=== PATIENT | female | born 1985 | race Caucasian/White ===

== ENCOUNTER 2016-11-18 03:07 | Emergency (ER) | payer SELFPAY | END 2016-11-18 03:47 | disposition left against medical advice (07) | LOC: ED 03:07 | DX: Z02.89 Encounter for other administrative examinations (principal); M79.605 Pain in left leg ==

== ENCOUNTER 2017-07-29 18:14 | Emergency (ER) | payer MEDICAID ==
[2017-07-29 18:37] VITALS: BMI 23.6
[2017-07-29 18:41] VITALS: TEMP 98.8; O2SAT 100
--- NOTE | 2017-07-29 18:47 | ED PDOC ---
Arrival/HPI - General Chief Complaint: Headache Time Seen by Provider: 07/29/17 18:20 Historian: Patient - History of Present Illness Time/Duration: Other (5 days) Symptom Course: Unchanged Quality: Aching Severity Level: Moderate Activities at Onset: Rest Associated Symptoms (Text): 07/29/17 18:45 Patient complains of a five-day history of a bilateral frontal headache. The headache gets better with Aleve, but then returns. There's been some nausea and vomiting. No head trauma. No dizziness or lightheadedness. No numbness tingling or paresthesias. No weakness. No difficulty with ambulation. No difficulty with speech. No neck pain. No fever or chills. No URI symptoms. No dental pain. No cough congestion. No abdominal pain. No headache history. She does not appear uncomfortable or in any distress. Past Medical History - Infectious Disease Hx of Infectious Diseases: None - Reproductive Menopause: No - Psychiatric Hx Substance Use: No - Surgical History Hx Section: Yes (2006) - Anesthesia Hx Anesthesia: Yes Hx Anesthesia Reactions: No Hx Malignant Hyperthermia: No - Suicidal Assessment Feels Threatened In Home Enviroment: No Family/Social History - Physician Review Nursing Documentation Reviewed: Yes Family/Social History: Unknown Family HX Smoking Status: Light Smoker < 10 Cigarettes Daily Hx Alcohol Use: Yes Frequency of alcohol use: Socially Hx Substance Use: No Allergies/Home Meds Allergies/Adverse Reactions: Allergies No Known Allergies Allergy (Verified 12/01/14 20:56) Review of Systems - Physician Review All systems were reviewed & negative as marked: Yes - Review of Systems Constitutional: absent: Fatigue, Fevers Eyes: absent: Vision Changes, Photophobia, Eye Pain ENT: absent: Hearing Changes, Rhinorrhea Respiratory: Normal Cardiovascular: Normal Gastrointestinal: Nausea, Vomiting. absent: Abdominal Pain, Constipation, Diarrhea, Anorexia Genitourinary Female: absent: Dysuria, Frequency, Hematuria Neurological: Headache. absent: Dizziness, Focal Weakness, Gait Changes, Speech Changes, Facial Droop, Disequilibrium, Seizure Physical Exam Vital Signs Temp Pulse Resp BP Pulse Ox 07/29/17 18:37 98.8 F 94 H 18 136/79 100 Temperature: Afebrile Blood Pressure: Normal Pulse: Regular Respiratory Rate: Normal Appearance: Positive for: Well-Appearing, Non-Toxic, Comfortable Pain Distress: None Mental Status: Positive for: Alert and Oriented X 3 - Systems Exam Head: Present: Atraumatic, Normocephalic Pupils: Present: PERRL Extroacular Muscles: Present: EOMI Conjunctiva: Present: Normal Ears: Present: NORMAL TM, Normal Canal. No: Erythema Mouth: Present: Moist Mucous Membranes Pharnyx: No: ERYTHEMA, EXUDATE, TONSILS ENLARGED Neck: Present: Normal Range of Motion. No: Meningeal Signs Respiratory/Chest: Present: Clear to Auscultation, Good Air Exchange. No: Respiratory Distress, Accessory Muscle Use Cardiovascular: Present: Regular Rate and Rhythm, Normal S1, S2. No: Murmurs Abdomen: Present: Normal Bowel Sounds. No: Tenderness, Distention, Peritoneal Signs, Rebound, Guarding Upper Extremity: Present: Normal Inspection. No: Cyanosis, Edema Lower Extremity: Present: Normal Inspection. No: Edema Neurological: Present: GCS=15, CN II-XII Intact, Speech Normal, Motor Func Grossly Intact, Normal Cerebellar Funct, Gait Normal Skin: Present: Warm, Dry, Normal Color. No: Rashes Psychiatric: Present: Alert, Oriented x 3, Normal Insight, Normal Concentration Medical Decision Making ED Course and Treatment: 07/29/17 20:36 Headache and nausea have resolved post Toradol and Zofran. Waiting for CT report - RAD Interpretation Radiology Orders: 07/29/17 18:55 HEAD W/O CONTRAST [CT] Stat CT scan of the head as read by the radiologist shows no acute findings Parimutuel Ticket Checker: Radiologist - Medication Orders Current Medication Orders: Discontinued Medications Ketorolac Tromethamine (Toradol) 30 mg IM ONCE ONE Stop: 07/29/17 18:56 Last Admin: 07/29/17 19:07 Dose: 30 mg MAR Pain Assessment Document 07/29/17 19:07 RD (Rec: 07/29/17 19:07 RD [id number] Pain Reassessment Is this a pain reassessment? No Sleep Is patient sleeping during reassessment? No Presence of Pain Presence of Pain Yes Location Pain Location Body Structures Mechanic IM Administration Charges Document 07/29/17 19:07 RD (Rec: 07/29/17 19:07 RD [id number]) Injection Site MAR Injection Site Left Deltoid Charges for Administration # of IM Administrations 1 Ondansetron HCl (Zofran Odt) 4 mg PO STAT STA Stop: 07/29/17 18:57 Last Admin: 07/29/17 19:07 Dose: 4 mg Disposition/Present on Arrival - Present on Arrival Any Indicators Present on Arrival: No History of DVT/PE: No History of Uncontrolled Diabetes: No Urinary Catheter: No History of Decub. Ulcer: No History Surgical Site Infection Following: None - Disposition Have Diagnosis and Disposition been Completed?: Yes Diagnosis: Headache Disposition: HOME/ ROUTINE Disposition Time: 20:56 Condition: IMPROVED Discharge Instructions (ExitCare): Acute Headache (ED) Prescriptions: Naproxen [Naprosyn] 500 mg PO BID #14 tab Ondansetron [Zofran Odt] 4 mg SL Q6 #20 odt Forms: [facility] (Estonian), WORK NOTE
--- NOTE | 2017-07-29 20:52 | CT ---
EXAM: CT Head Without Intravenous Contrast CLINICAL HISTORY: 32 years old, female; Pain; Headache; Headache not specified; Additional info: [facility] TECHNIQUE: Axial computed tomography images of the head/brain without intravenous contrast. All CT scans at this facility use one or more dose reduction techniques, viz.: automated exposure control; ma/kV adjustment per patient size (including targeted exams where dose is matched to indication; i.e. head); or iterative reconstruction technique. COMPARISON: No relevant prior studies available. FINDINGS: Brain: No hemorrhage. No significant white matter disease. No edema. Ventricles: No hydrocephalus. Bones: Skull is intact. Sinuses: No acute sinusitis. Mastoid air cells: No mastoid effusion. IMPRESSION: No CT evidence of acute intracranial abnormality.
[2017-07-29 21:00] VITALS: BP 108/62; PULSE 75; RESP 16
== END 2017-07-29 21:03 | disposition home or self-care (01) ==
LOC: ED 18:14
DX: R51 Headache (principal)
CPT/HCPCS: 70450; 96372; 99285; J1885

== ENCOUNTER 2017-08-15 22:18 | Emergency (ER) | payer MEDICAID ==
[2017-08-15 22:58] VITALS: BMI 23.0
[2017-08-15 23:01] VITALS: RESP 18
[2017-08-16] MEDS: Sodium Chloride 0.9% 1,000 ML IV STA ×2 (00:02→01:15)
[2017-08-16 00:13] LABS: EOS # 0.2 (0.0-0.7); GRAN # 1.67 (1.4-6.5); GRAN % 43.8 % (50.0-68.0); HEMOGLOBIN 10.7 g/dL (12.0-16.0); LYMPH # 1.4 (1.2-3.4); LYMPH % 37.8 % (22.0-35.0); MEAN CORPUSCULAR HEMOGLOBIN 28.5 pg (25.0-35.0); MEAN CORPUSCULAR HGB CONC 32.7 g/dl (31.0-37.0); MEAN PLATELET VOLUME 10.9 fl (7.0-11.0); MONO # 0.5 (0.1-0.6); MONO % 13.4 % (1.0-6.0); PH,URINE 5.5 (4.7-8.0); RBC 3.76 10^6/uL (3.5-6.1); RED CELL DISTRIBUTION WIDTH 12.5 % (11.5-14.5); URINE BILIRUBIN NEGATIVE (NEGATIVE); URINE BLOOD NEGATIVE (NEGATIVE); URINE GLUCOSE (UA) NEGATIVE (NEGATIVE); URINE LEUKOCYTE ESTERASE NEGATIVE Leu/uL (NEGATIVE); URINE NITRATE NEGATIVE (NEGATIVE); URINE PROTEIN NEGATIVE mg/dL (<30 mg/dL); URINE UROBILINOGEN 0.2 E.U./dL (<1 E.U./dL); WHITE BLOOD COUNT 3.8 10^3/ul (4.5-11.0)
[2017-08-16 00:14] LABS: URINE APPEARANCE CLEAR (CLEAR); URINE COLOR YELLOW (YELLOW)
[2017-08-16 00:18] LABS: ALB/GLOB RATIO 1.5 (1.1-1.8); ALBUMIN 3.6 g/dL (3.0-4.8); ALT/SGPT 34 U/L (7-56); AMYLASE 36 U/L (35-125); AST/SGOT 15 U/L (14-36); BLOOD UREA NITROGEN 13 mg/dL (7-21); CALCIUM 9.7 mg/dL (8.4-10.5); GFR AFRICAN-AMERICAN > 60; GFR NON-AFRICAN AMERICAN > 60; LIPASE 48 U/L (23-300)
[2017-08-16 01:30] VITALS: BP 113/57; PULSE 94; TEMP 98.5; O2SAT 99
--- NOTE | 2017-08-16 02:12 | ED PDOC ---
Arrival/HPI - General Chief Complaint: Fever Time Seen by Provider: 08/15/17 23:20 Historian: Patient - History of Present Illness Narrative History of Present Illness (Text): 08/16/17 02:09 32yr old female presents today with cough, nasal congestion, sore throat, and vomiting. pt states today she started coughing and has been vomiting during the day. pt denies abdominal pain. states she had fevers of 100.4 at home. pt states she took motrin for fever. denies dizziness or weakness. pt states she took zofran for nausea at home. denies nausea at present time. pt denies sick contacts at home. states she hasnt been able to eat much today. pt states she just has been taking sips of drink/soup. no other complaints. Time/Duration: Other (today) Symptom Onset: Sudden Symptom Course: Worsening Quality: Aching, Burning Severity Level: 4 Past Medical History - Provider Review Nursing Documentation Reviewed: Yes - Travel History Have you recently traveled outside [place] w/in the past 3 mons?: No - Infectious Disease Hx of Infectious Diseases: None - Psychiatric Hx Substance Use: No - Surgical History Hx Section: Yes (2006) - Anesthesia Hx Anesthesia: Yes Hx Anesthesia Reactions: No Hx Malignant Hyperthermia: No - Suicidal Assessment Feels Threatened In Home Enviroment: No Family/Social History - Physician Review Nursing Documentation Reviewed: Yes Family/Social History: Unknown Family HX Smoking Status: Light Smoker < 10 Cigarettes Daily Hx Alcohol Use: Yes Frequency of alcohol use: Socially Hx Substance Use: No Allergies/Home Meds Allergies/Adverse Reactions: Allergies No Known Allergies Allergy (Verified 12/01/14 20:56) Review of Systems - Review of Systems Constitutional: Fevers. absent: Fatigue ENT: Sore Throat, Sinus Congestion Respiratory: Cough Cardiovascular: absent: Chest Pain Gastrointestinal: Nausea, Vomiting. absent: Abdominal Pain, Constipation, Diarrhea Genitourinary Female: absent: Dysuria, Frequency, Hematuria Musculoskeletal: absent: Arthralgias Skin: absent: Rash, Pruritis Neurological: absent: Dizziness, Disequilibrium Psychiatric: absent: Anxiety, Depression Physical Exam Vital Signs Reviewed: Yes Vital Signs Temp Pulse Resp BP Pulse Ox 08/16/17 01:27 98.5 F 94 H 18 113/57 L 99 08/15/17 23:01 98.3 F 104 H 18 118/45 L 100 Temperature: Afebrile Blood Pressure: Normal Pulse: Tachycardic Respiratory Rate: Normal Appearance: Positive for: Well-Appearing, Non-Toxic, Comfortable Pain Distress: None Mental Status: Positive for: Alert and Oriented X 3 - Systems Exam Head: Present: Atraumatic Conjunctiva: Present: Normal Ears: Present: Normal, NORMAL TM Mouth: Present: Moist Mucous Membranes Pharnyx: Present: ERYTHEMA, Other (+ post nasal drip). No: EXUDATE, TONSILS ENLARGED, Peritonsilar Swelling, Uvular Deviation, Muffled/Hoarse Voice Nose (External): Present: Atraumatic Nose (Internal): Present: Normal Inspection Neck: Present: Normal Range of Motion, Trachea Midline. No: Meningeal Signs, Lymphadenopathy Respiratory/Chest: Present: Clear to Auscultation, Good Air Exchange. No: Respiratory Distress, Accessory Muscle Use, Wheezes, Retracting, Rhonchi, Tachypneic, Tender to Palpation Cardiovascular: Present: Regular Rate and Rhythm Abdomen: Present: Normal Bowel Sounds. No: Tenderness, Distention, Rebound, Guarding Back: Present: Normal Inspection. No: CVA Tenderness, Midline Tenderness, Paraspinal Tenderness, Pain with Leg Raise Upper Extremity: Present: Normal Inspection Neurological: Present: GCS=15, Speech Normal Skin: Present: Warm, Dry, Normal Color. No: Rashes Psychiatric: Present: Alert, Oriented x 3 Medical Decision Making ED Course and Treatment: 08/16/17 02:12 32yr old female with n/v, cough, sore throat and fevers since this morning. abdomen is soft non tender, non distress. cbc; hgb; 10.7 cmp; wnl rapid flu: negative rapid strep; negative cxr; no infiltrate or effusion UA; wnl. pt reassessment; pt feeling better after pepcid and fluids. abdominal remains non tender. pt c/o only of sore throat. will place patient on zithromax for pharyngitis and cough. advised f/u with PMD tomorrow. advised immediate return if symptoms worsen, persist or if new symptoms develop. Patient verbalizes understanding of discharge instructions and need for immediate followup. all aspects of this case were discussed the attending of record. impression; pharyngitis, vomiting, cough motrin every 6 hours as needed for fever reduction zithromax; daily x 4 days increase fluids follow up with the primary care physician tomorrow. return immediately if symptoms worsen,persist or if new symptoms develop. - Lab Interpretations Lab Results: 08/15/17 23:50 08/15/17 23:50 Lab Results 08/15/17 23:55: Grp A Beta Strep Ag Negative 08/15/17 23:55: Influenza Typ A,B (EIA) Negative for flu a/b 08/15/17 23:50: Urine Color Yellow, Urine Appearance Clear, Urine pH 5.5, Ur Specific Truman >= 1.030, Urine Protein Negative, Urine Glucose (UA) Negative, Urine Ketones Negative, Urine Blood Negative, Urine Nitrate Negative, Urine Bilirubin Negative, Urine Urobilinogen 0.2, Ur Leukocyte Esterase Negative 08/15/17 23:50: WBC 3.8 L D, RBC 3.76, Hgb 10.7 L, Hct 32.7 L, MCV 87.0, MCH 28.5, MCHC 32.7, RDW 12.5, Plt Count 171, MPV 10.9, Gran % 43.8 L, Lymph % (Auto ) 37.8 H, Harlan % (Auto) 13.4 H, Eos % (Auto) 5.0, Baso % (Auto) 0.0, Gran # 1.67 , Lymph # 1.4, Harlan # 0.5, Eos # 0.2, Baso # 0.00 08/15/17 23:50: Sodium 138, Potassium 4.2, Chloride 101, Carbon Dioxide 26, Anion Gap 15, BUN 13, Creatinine 0.5 L, Est GFR ( Amer) > 60, Est GFR ( Non-Af Amer) > 60, Random Glucose 89, Calcium 9.7, Total Bilirubin 0.3, AST 15, ALT 34, Alkaline Phosphatase 35 L, Total Protein 6.1, Albumin 3.6, Globulin 2.4 , Albumin/Globulin Ratio 1.5, Amylase 36, Lipase 48 - RAD Interpretation Radiology Orders: 08/15/17 23:37 CHEST TWO VIEWS (PA/LAT) [RAD] Stat - Medication Orders Current Medication Orders: Amoxicillin (Amoxil 500 Mg Cap) 500 mg PO STAT STA PRN Reason: Protocol Stop: 08/16/17 02:09 Discontinued Medications Famotidine (Pepcid) 20 mg IVP STAT STA Stop: 08/15/17 23:38 Last Admin: 08/16/17 00:02 Dose: 20 mg IVP Administration Document 08/16/17 00:02 MAXIMO (Rec: 08/16/17 00:02 MAXIMO [id number]) Charges for Administration # of IVP Administrations 1 Sodium Chloride (Sodium Chloride 0.9%) 1,000 mls @ 999 mls/hr IV .Q1H1M STA Stop: 08/16/17 00:37 Last Admin: 08/16/17 01:15 Dose: 999 mls/hr eMAR Start Stop Document 08/16/17 01:15 MAXIMO (Rec: 08/16/17 01:15 MAXIMO [facility] [id number]) Intravenous Solution Start Date 08/16/17 Start Time 00:05 End Date 08/16/17 End time 01:15 Total Infusion Time 70 Disposition/Present on Arrival - Present on Arrival Any Indicators Present on Arrival: No History of DVT/PE: No History of Uncontrolled Diabetes: No Urinary Catheter: No History of Decub. Ulcer: No History Surgical Site Infection Following: None - Disposition Have Diagnosis and Disposition been Completed?: Yes Diagnosis: Cough, Pharyngitis, Vomiting Disposition: HOME/ ROUTINE Disposition Time: :18 Patient Plan: Discharge Condition: GOOD Discharge Instructions (ExitCare): Acute Cough (ED), Fever in Adults (ED), Acute Nausea and Vomiting (ED) Additional Instructions: motrin every 6 hours as needed for fever reduction zithromax; daily x 4 days increase fluids follow up with the primary care physician tomorrow. return immediately if symptoms worsen,persist or if new symptoms develop. Prescriptions: Azithromycin [Zithromax] 250 mg PO DAILY #4 tab Ibuprofen [Motrin] 600 mg PO Q6H PRN #20 tab PRN Reason: pain/fever reduction Referrals: Theodore Walker DO [Staff Provider] - Follow up with primary Louis James DO [Staff Provider] - Follow up with primary Saurabh Willard MD [Staff Provider] - Follow up with primary
--- NOTE | 2017-08-16 08:08 | RAD ---
HISTORY: cough/fever COMPARISON: No prior. TECHNIQUE: Chest PA and lateral FINDINGS: LUNGS: No active pulmonary disease. PLEURA: No significant pleural effusion identified. No pneumothorax apparent. CARDIOVASCULAR: Normal. OSSEOUS STRUCTURES: No significant abnormalities. VISUALIZED UPPER ABDOMEN: Normal. OTHER FINDINGS: None. IMPRESSION: No acute cardiopulmonary disease appreciated.
== END 2017-08-16 02:25 | disposition home or self-care (01) ==
LOC: ED 22:18
DX: J02.9 Acute pharyngitis, unspecified (principal); R05 Cough; R11.10 Vomiting, unspecified; F17.210 Nicotine dependence, cigarettes, uncomplicated
CPT/HCPCS: 71046; 80053; 81003; 82150; 83690; 85025; 87070; 87430; 87804; 96361; 96374; 99285; J7040

== ENCOUNTER 2017-10-23 10:45 | Emergency (ER) | payer MEDICAID ==
[2017-10-23 11:12] VITALS: TEMP 99.1; O2SAT 98; BMI 19.5
--- NOTE | 2017-10-23 11:28 | ED PDOC ---
Arrival/HPI - General Chief Complaint: Upper Extremity Problem/Injury Time Seen by Provider: 10/23/17 11:15 Historian: Patient - History of Present Illness Narrative History of Present Illness (Text): 10/23/17 11:25 32yo female with PMhx of Grave's disease who present with complaint of left upper arm pain x 2days. Reports hitting the area on a counter top Sunday. states she felt pain immediately, but was busy and ignored it. she started having "pinching" pain to the area yesterday and it became worse today. State she took Tylenol this morning without relieve. Pain is worse with movement of the arm. denies chest pain, SOB, diaphoresis, nausea,vomiting, focal weakness, paresthesia, any other complaint. Past Medical History - Provider Review Nursing Documentation Reviewed: Yes - Infectious Disease Hx of Infectious Diseases: None - Cardiac Hx Cardiac Disorders: No - Pulmonary Hx Respiratory Disorders: No - Neurological Hx Neurological Disorder: No - HEENT Hx HEENT Disorder: No - Renal Hx Renal Disorder: No - Endocrine/Metabolic Hx Endocrine Disorders: Yes - Psychiatric Hx Substance Use: No - Surgical History Hx Section: Yes (2006) - Anesthesia Hx Anesthesia: Yes Hx Anesthesia Reactions: No Hx Malignant Hyperthermia: No - Suicidal Assessment Feels Threatened In Home Enviroment: No Family/Social History - Physician Review Nursing Documentation Reviewed: Yes Family/Social History: Unknown Family HX Smoking Status: Light Smoker < 10 Cigarettes Daily Hx Alcohol Use: Yes Hx Substance Use: No Allergies/Home Meds Allergies/Adverse Reactions: Allergies No Known Allergies Allergy (Verified 10/23/17 11:12) Home Medications: Home Meds Medication Instructions Recorded Confirmed Metoprolol Tartrate [Lopressor] 50 mg PO HS 10/23/17 10/23/17 methIMAzole [Tapazole] 30 mg PO DAILY 10/23/17 10/23/17 Review of Systems - Physician Review All systems were reviewed & negative as marked: Yes - Review of Systems Constitutional: Normal Eyes: Normal ENT: Normal Respiratory: Normal Cardiovascular: Normal Gastrointestinal: Normal Genitourinary Female: Normal Musculoskeletal: Arthralgias (Left arm pain) Skin: Normal Neurological: Normal Endocrine: Normal Hemo/Lymphatic: Normal Psychiatric: Normal Physical Exam Vital Signs Reviewed: Yes Vital Signs Temp Pulse Resp BP Pulse Ox 10/23/17 12:27 96 H 18 117/71 98 10/23/17 11:06 99.1 F 114 H 20 119/78 98 Temperature: Afebrile Blood Pressure: Normal Pulse: Tachycardic Respiratory Rate: Normal Appearance: Positive for: Well-Appearing, Non-Toxic, Comfortable Pain Distress: None Mental Status: Positive for: Alert and Oriented X 3 - Systems Exam Head: Present: Atraumatic, Normocephalic Pupils: Present: PERRL Extroacular Muscles: Present: EOMI Conjunctiva: Present: Normal Mouth: Present: Moist Mucous Membranes Neck: Present: Normal Range of Motion Respiratory/Chest: Present: Clear to Auscultation, Good Air Exchange. No: Respiratory Distress, Accessory Muscle Use Cardiovascular: Present: Regular Rate and Rhythm, Normal S1, S2. No: Murmurs Abdomen: Present: Normal Bowel Sounds. No: Tenderness, Distention, Peritoneal Signs Back: Present: Normal Inspection Upper Extremity: Present: NORMAL PULSES, Tenderness (Left upper arm), Swelling ( Mild swelling of left upper arm noted), Neurovascularly Intact, Other (strenght 5/5). No: Cyanosis, Edema, Normal ROM (Limited on all planes secondary to pain) Lower Extremity: Present: Normal Inspection. No: Edema Neurological: Present: GCS=15, CN II-XII Intact, Speech Normal Skin: Present: Warm, Dry, Normal Color. No: Rashes Psychiatric: Present: Alert, Oriented x 3, Normal Insight, Normal Concentration Medical Decision Making ED Course and Treatment: 10/23/17 18:15 Pt in ED for stated history. She denied chest pain in ED. She was NVI. Strength 5/5. Left humerus xray - Negative EKG NSR 89bpm Pt's pain was controlled in ED with medication. Result was DW the pt. She was DC home with Naprosyn and referred to her PMD. - RAD Interpretation Radiology Orders: 10/23/17 11:22 HUMERUS LEFT [RAD] Stat - Medication Orders Current Medication Orders: Discontinued Medications Ketorolac Tromethamine (Toradol) 60 mg IM STAT STA Stop: 10/23/17 11:23 Last Admin: 10/23/17 11:37 Dose: 60 mg JULIANNA Pain Assessment Document 10/23/17 11:37 HI (Rec: 10/23/17 11:38 HI [id number]) Pain Reassessment Is this a pain reassessment? No Sleep Is patient sleeping during reassessment? No Presence of Pain Presence of Pain Yes Location Left, Right or Bilateral Left Pain Location Body Site Arm Description Description Constant Intensity of Pain at present 8 Acceptable Level of Pain 2 IM Administration Charges Document 10/23/17 11:37 HI (Rec: 10/23/17 11:38 HI [id number]) Injection Site MAR Injection Site Right Gluteus Freddie Charges for Administration # of IM Administrations 1 Disposition/Present on Arrival - Present on Arrival Any Indicators Present on Arrival: No History of DVT/PE: No History of Uncontrolled Diabetes: No Urinary Catheter: No History of Decub. Ulcer: No History Surgical Site Infection Following: None - Disposition Have Diagnosis and Disposition been Completed?: Yes Diagnosis: Arm pain Disposition: HOME/ ROUTINE Disposition Time: 12:45 Patient Plan: Discharge Condition: STABLE Discharge Instructions (ExitCare): Muscle and Bone Pain (DC) Additional Instructions: Apply ice compress to area and take medication for pain Follow up with your doctor Return to ED for any new symptoms Prescriptions: Naproxen [Naprosyn] 500 mg PO BID #20 tablet Referrals: Cristiano Burkett MANAGER [employer] [Advanced Practice Nurse] - Follow up with primary Forms: [employer] (Algerian)
--- NOTE | 2017-10-23 12:24 | RAD ---
PROCEDURE: Radiographs of the left humerus. HISTORY: arm pain s/p trauma COMPARISON: None. FINDINGS: BONES: Normal. No fracture or focal lesion. SOFT TISSUES: Normal. OTHER FINDINGS: None. IMPRESSION: Normal radiographs of left humerus.
[2017-10-23 12:28] VITALS: BP 117/71; PULSE 96; RESP 18
--- NOTE | 2017-10-24 07:17 | CARD ---
APPROVED REPORT EKG Measurement Heart [id number] <Conclusion> Normal sinus rhythm Normal ECG
== END 2017-10-23 13:19 | disposition home or self-care (01) ==
LOC: ED 10:45
DX: M79.602 Pain in left arm (principal)
CPT/HCPCS: 73060; 93005; 96372; 99284; J1885

== ENCOUNTER 2017-10-30 17:42 | Inpatient (IN) | payer MEDICAID ==
[2017-10-30 17:47] VITALS: BMI 19.9
[2017-10-30] MEDS ORDERED: Sodium Chloride 0.9% 1,000 ML IV STA ×2 (17:52→18:05)
[2017-10-30] MEDS ORDERED: cefTRIAXone 1 gm 1 GM/100 ML BAG IVPB STA (18:06)
[2017-10-30 18:24] LABS: VENOUS BLOOD GAS BASE EXCESS 1.2 mmol/L (0.0-2.0); VENOUS BLOOD GAS PO2 46 mm/Hg (30-55); VENOUS BLOOD PH 7.39 (7.32-7.43)
[2017-10-30 18:29] LABS: GRAN # 0.01 (1.4-6.5); GRAN % 2.8 % (50.0-68.0); HEMOGLOBIN 11.5 g/dL (12.0-16.0); LYMPH # 0.3 (1.2-3.4); LYMPH % 88.9 % (22.0-35.0); MEAN CORPUSCULAR HEMOGLOBIN 26.3 pg (25.0-35.0); MEAN CORPUSCULAR HGB CONC 33.7 g/dl (31.0-37.0); MEAN PLATELET VOLUME 10.1 fl (7.0-11.0); MONO % 8.3 % (1.0-6.0); PLATELET COUNT 201 10^3/uL (120.0-450.0); RBC 4.37 10^6/uL (3.5-6.1); RED CELL DISTRIBUTION WIDTH 13.6 % (11.5-14.5)
[2017-10-30 18:40] LABS: ALB/GLOB RATIO 1.2 (1.1-1.8); ALT/SGPT 34 U/L (7-56); AST/SGOT 20 U/L (14-36); BLOOD UREA NITROGEN 17 mg/dL (7-21); CALCIUM 10.2 mg/dL (8.4-10.5); GFR AFRICAN-AMERICAN > 60; GFR NON-AFRICAN AMERICAN > 60
--- NOTE | 2017-10-30 18:43 | ED PDOC ---
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 Patient was seen at an urgent care and had a negative flu and strep. Patient evaluated by PMD who instructed her to come in for further evaluation. Patient denies any nausea, vomiting, diarrhea, abdominal pain, chest pain, shortness of breath, cough or any other complaints. 10/30/17 19:22 Time/Duration: Other (2 days) Symptom Course: Unchanged Quality: Other Context: Home Past Medical History - Provider Review Nursing Documentation Reviewed: Yes - Infectious Disease Hx of Infectious Diseases: None - Cardiac Hx Cardiac Disorders: No - Pulmonary Hx Respiratory Disorders: No - Neurological Hx Neurological Disorder: No - HEENT Hx HEENT Disorder: No - Renal Hx Renal Disorder: No - Endocrine/Metabolic Hx Endocrine Disorders: Yes - Musculoskeletal/Rheumatological Other/Comment: graves disease - Psychiatric Hx Substance Use: No - Surgical History Hx Section: Yes (2006) - Anesthesia Hx Anesthesia: Yes Hx Anesthesia Reactions: No Hx Malignant Hyperthermia: No - Suicidal Assessment Feels Threatened In Home Enviroment: No Family/Social History - Physician Review Nursing Documentation Reviewed: Yes Family/Social History: No Known Family HX Smoking Status: Former Smoker Hx Alcohol Use: No Hx Substance Use: No Allergies/Home Meds Allergies/Adverse Reactions: Allergies No Known Allergies Allergy (Verified 10/23/17 11:12) Home Medications: Home Meds Medication Instructions Recorded Confirmed Metoprolol Tartrate [Lopressor] 50 mg PO HS 10/23/17 10/23/17 methIMAzole [Tapazole] 30 mg PO DAILY 10/23/17 10/23/17 Review of Systems - Physician Review All systems were reviewed & negative as marked: Yes - Review of Systems Constitutional: Fevers ENT: Sore Throat Respiratory: absent: SOB, Cough Cardiovascular: absent: Chest Pain Gastrointestinal: absent: Abdominal Pain, Diarrhea, Nausea, Vomiting Physical Exam Vital Signs Reviewed: Yes Vital Signs Temp Pulse Resp BP Pulse Ox 10/30/17 21:30 95 H 20 110/57 L 100 10/30/17 19:40 109 H 18 130/76 97 10/30/17 18:11 104.0 F H 10/30/17 17:43 103 F H 145 H 20 134/81 97 Temperature: Febrile Blood Pressure: Normal Pulse: Tachycardic Respiratory Rate: Normal Appearance: Positive for: Well-Appearing, Non-Toxic, Comfortable Pain Distress: None Mental Status: Positive for: Alert and Oriented X 3 - Systems Exam Head: Present: Atraumatic, Normocephalic Pupils: Present: PERRL Extroacular Muscles: Present: EOMI Conjunctiva: Present: Normal Mouth: Present: Moist Mucous Membranes Pharnyx: Present: ERYTHEMA. No: EXUDATE, TONSILS ENLARGED Neck: Present: Normal Range of Motion, Lymphadenopathy (Tender cervical lymphadenopathy). No: Other (thyromegaly) Respiratory/Chest: Present: Clear to Auscultation, Good Air Exchange. No: Respiratory Distress, Accessory Muscle Use Cardiovascular: Present: Regular Rate and Rhythm, Normal S1, S2. No: Murmurs Abdomen: Present: Normal Bowel Sounds. No: Tenderness, Distention, Peritoneal Signs Upper Extremity: Present: Normal Inspection. No: Cyanosis, Edema Lower Extremity: Present: Normal Inspection. No: Edema Neurological: Present: GCS=15, CN II-XII Intact, Speech Normal Skin: Present: Warm, Dry, Normal Color. No: Rashes Psychiatric: Present: Alert, Oriented x 3, Normal Insight, Normal Concentration Medical Decision Making ED Course and Treatment: 10/30/17 18:36 Impression: A 32 year old female with fever and sore throat Plan: -- Neck CT -- Chest xray -- EKG -- Labs -- Throat, Blood and Urine cultures, mono-spot -- Urinalysis -- Rapid flu, rapid hiv -- Tylenol, Lactated ringer, Rocephin, and IV fluids -- Reassess and disposition Progress Notes: Code sepsis activated. Antibiotics and additional fluids to meet 30cc/kg/hr LR ordered. Blood and urine culture already ordered. 10/30/17 19:20 Neutropenic cautions started. Tamiflu also added. Additional antibiotics ordered due to neutropenia. TSH low, but free t4 only mildly elevated. Spoke to [place] MANAGER CARGO who is requesting admission under Dr. Hernandez 10/30/17 19:[address] Hernandez. She is requesting flu serology which was ordered. Monospot also added. HR improving to 104 after IVF. Agrees with current mgmt including CT. Will take patient on her service 10/30/17 20:51 10/30/17 21:33 CT soft tissue show 1. There is swelling of the adenoids within the posterior nasopharynx. Mucosal enhancement is visualized, which may be inflammatory. 2. There is heterogeneous enhancement of the bilateral palatine tonsils and lingual tonsils. This is likely infectious or inflammatory. There is asymmetric hypertrophy of the right lingual tonsil with effacement of the right vallecula. Clinical correlation is recommended. 3. There is diffuse enlargement of the thyroid, consistent with goiter. 4. There is swelling surrounding the right submandibular gland, suggestive of sialoadenitis. 5. Cervical lymphadenopathy is identified, nonspecific as to etiology. 6. Within the soft tissues lateral to the left parotid gland, there is a 1.5 x 0.9 x 1.9 cm lipomatous lesion/lipoma. 7. Within the soft tissues of the neck midline, there is an isodense nodule measuring 0.8 x 0.5 x 1.9 cm. This is suggestive of ectopic thyroid tissue. 8. A follow-up CT is suggested. Cxray concerning for additional LAD but need to follow-up official read in am. 10/30/17 21:34 - Lab Interpretations Lab Results: 10/30/17 18:11 10/30/17 18:17 Lab Results 10/30/17 18:32: Influenza Typ A,B (EIA) Negative for flu a/b 10/30/17 18:17: Free T4 2.61 H, TSH 3rd Generation < 0.02 L 10/30/17 18:17: Grp A Beta Strep Ag Negative 10/30/17 18:17: Sodium 132, Chloride 95 L, Potassium 3.8, Carbon Dioxide 23, Anion Gap 17, BUN 17, Creatinine 0.6 L, Est GFR ( Amer) > 60, Est GFR ( Non-Af Amer) > 60, Random Glucose 134 H, Calcium 10.2, Total Bilirubin 1.2, AST 20, ALT 34, Alkaline Phosphatase 74, Total Protein 7.5, Albumin 4.0, Globulin 3.4, Albumin/Globulin Ratio 1.2 10/30/17 18:17: pO2 46, VBG pH 7.39, VBG pCO2 44.0, VBG HCO3 26.6, VBG Total CO2 28.0, VBG O2 Sat (Calc) 84.3 H, VBG Base Excess 1.2, VBG Potassium 3.8, Sodium 130.0 L, Chloride 96.0 L, Glucose 132 H, Lactate 2.0, FiO2 21.0, Venous Blood Potassium 3.8 10/30/17 18:11: WBC 0.4 L* D, RBC 4.37, Hgb 11.5 L, Hct 34.1 L, MCV 78.0 L D, MCH 26.3, MCHC 33.7, RDW 13.6, Plt Count 201, MPV 10.1, Gran % 2.8 L, Lymph % ( Auto) 88.9 H, [place] % (Auto) 8.3 H, Eos % (Auto) 0.0 L, Baso % (Auto) 0.0, Gran # 0.01 L, Lymph # (Auto) 0.3 L, [place] # (Auto) 0.0 L, Eos # (Auto) 0.0, Baso # ( Auto) 0.00, Neutrophils % (Manual) 2 L, Lymphocytes % (Manual) 98 H, Monocytes % (Manual) TEST NOT PERFORMED, Platelet Evaluation Normal, Hypochromasia 1+, Anisocytosis (manual) 1+, Microcytosis (manual) 1+ I have reviewed the lab results: Yes - RAD Interpretation Radiology Orders: 10/30/17 18:04 NECK SOFT TISSUE W/CONTRAST [CT] Stat 10/30/17 18:16 CHEST PORTABLE [RAD] Stat - Medication Orders Current Medication Orders: Acetaminophen (Tylenol 325mg Tab) 650 mg PO Q6H PRN PRN Reason: Fever >100.4 F Methimazole (Tapazole) 30 mg PO DAILY GRACE Metoprolol Tartrate (Lopressor) 50 mg PO HS GRACE Oseltamivir Phosphate (Tamiflu) 30 mg PO BID GRACE PRN Reason: Protocol Discontinued Medications Acetaminophen (Tylenol 325mg Tab) 975 mg PO STAT STA Stop: 10/30/17 17:59 Last Admin: 10/30/17 18:11 Dose: 975 mg MAR Pain/Vitals Document 10/30/17 18:11 [email or web address] (Rec: 10/30/17 18:11 [email or web address] [facility] [id number] Vitals Temperature (97.6 F-99.6 F) 104.0 F Temperature Source Oral Sodium Chloride (Sodium Chloride 0.9%) 1,000 mls @ 999 mls/hr IV .Q1H1M STA Stop: 10/30/17 18:52 Last Admin: 10/30/17 18:12 Dose: 999 mls/hr eMAR Start Stop Document 10/30/17 18:12 [email or web address] (Rec: 10/30/17 18:[address] [id number]) Intravenous Solution Start Date 10/30/17 Start Time 18:12 End Date 10/30/17 Sodium Chloride (Sodium Chloride 0.9%) 1,000 mls @ 999 mls/hr IV .Q1H1M STA Stop: 10/30/17 19:05 Last Admin: 10/30/17 18:12 Dose: 999 mls/hr eMAR Start Stop Document 10/30/17 18:12 CAST (Rec: 10/30/17 18:[address]- [id number]) Intravenous Solution Start Date 10/30/17 Start Time 18:12 End Date 10/30/17 Ceftriaxone Sodium (Rocephin 1 Gram Ivpb) 1 gm in 100 mls @ 100 mls/hr IVPB STAT STA PRN Reason: Protocol Stop: 10/30/17 19:05 Last Admin: 10/30/17 19:31 Dose: 100 mls/hr eMAR Start Stop Document 10/30/17 19:31 RD (Rec: 10/30/17 19:31 RD [id number]) Intravenous Solution Start Date 10/30/17 Start Time 19:31 End Date 10/30/17 End time 20:31 Total Infusion Time 60 Lactated Ringer's 1,600 ml/ IV (SUPPLIES) 1,600 mls @ 3,157.02 mls/hr IV ONCE ONE PRN Reason: 60 ML/KG/HR Stop: 10/30/17 18:34 Last Admin: 10/30/17 19:32 Dose: 3,157.02 mls/hr eMAR Start Stop Document 10/30/17 19:32 RD (Rec: 10/30/17 19:32 RD [id number]) Intravenous Solution Start Date 10/30/17 Start Time 19:32 Piperacillin Sod/Tazobactam Sod (Zosyn 3.375 In Ns 100ml) 100 mls @ 200 mls/hr IVPB STAT STA PRN Reason: Protocol Stop: 10/30/17 19:45 Last Admin: 10/30/17 20:47 Dose: 200 mls/hr eMAR Start Stop Document 10/30/17 20:47 EQ (Rec: 10/30/17 20:47 EQ [id number]) Intravenous Solution Start Date 10/30/17 Start Time 20:47 Oseltamivir Phosphate (Tamiflu Cap) 75 mg PO STAT STA PRN Reason: Protocol Stop: 10/30/17 20:53 - Scribe Statement The provider has reviewed the documentation as recorded by the Scribe Rita Matamoros Provider Scribe Attestation: All medical record entries made by the Scribe were at my direction and personally dictated by me. I have reviewed the chart and agree that the record accurately reflects my personal performance of the history, physical exam, medical decision making, and the department course for this patient. I have also personally directed, reviewed, and agree with the discharge instructions and disposition. Disposition/Present on Arrival - Present on Arrival Any Indicators Present on Arrival: No History of DVT/PE: No History of Uncontrolled Diabetes: No Urinary Catheter: No History of Decub. Ulcer: No History Surgical Site Infection Following: None - Disposition Have Diagnosis and Disposition been Completed?: Yes Diagnosis: Neutropenic fever, Tachycardia Disposition: HOSPITALIZED Disposition Time: 19:37 Patient Plan: Admission Patient Problems: Current Active Problems Problem Status Onset Neutropenic fever Acute Tachycardia Acute Condition: FAIR
[2017-10-30 18:54] LABS: FREE T4 2.61 ng/dL (0.78-2.19)
[2017-10-30] MEDS ORDERED: Iohexol 350 MG/100 ML VIAL ONE (19:03)
[2017-10-30 19:10] LABS: WHITE BLOOD COUNT 0.4 10^3/ul (4.5-11.0)
[2017-10-30 19:11] LABS: ANISOCYTOSIS 1+; HYPOCHROMIA 1+; LYMPHOCYTE 98 % (22.0-35.0); MICROCYTOSIS 1+; NEUTROPHIL 2 % (50.0-70.0); PLATELET ESTIMATE NORMAL (NORMAL)
[2017-10-30] MEDS ORDERED: Piperacillin/Tazobact 3.375 gm 100 ML IVPB STA (19:16)
--- NOTE | 2017-10-30 21:32 | CT ---
EXAM: CT Neck With Intravenous Contrast EXAM DATE/TIME: 10/30/2017 6:04 PM CLINICAL HISTORY: The patient age is 32 years old and is female; Signs and symptoms; Dysphagia / difficulty swallowing; Additional info: Sore throat, difficulty swallowing Facility exam id and description: Ct neckst neck soft tissue w/contrast TECHNIQUE: Axial computed tomography images of the neck with intravenous contrast. All CT scans at this facility use one or more dose reduction techniques, viz.: automated exposure control; ma/kV adjustment per patient size (including targeted exams where dose is matched to indication; i.e. head); or iterative reconstruction technique. Coronal and sagittal reformatted images were created and reviewed. CONTRAST: 100 mL of OMNI 350 administered intravenously. COMPARISON: US - THYROID 2017-10-03 12:17 FINDINGS: Nasopharynx: There is swelling of the adenoids within the posterior nasopharynx. Mucosal enhancement is visualized, which may be inflammatory. Additional pathology cannot be excluded. Oropharynx: There is heterogeneous enhancement of the bilateral palatine tonsils and lingual tonsils. This is likely infectious or inflammatory. There is asymmetric hypertrophy of the right lingual tonsil with effacement of the right vallecula. Hypopharynx: No acute abnormality. Larynx: See above. Trachea: No acute abnormality. Retropharyngeal space: No acute abnormality. Submandibular/parotid glands: There is swelling surrounding the right submandibular gland, suggestive of sialoadenitis. Within the soft tissues lateral to the left parotid gland, there is a 1.5 x 0.9 x 1.9 cm lipomatous lesion/lipoma. Thyroid: There is diffuse enlargement of the thyroid, consistent with goiter. Within the soft tissues of the neck midline, there is an isodense nodule measuring 0.8 x 0.5 x 1.9 cm. This is suggestive of ectopic thyroid tissue. Bones/joints: There is straightening of the lordotic curvature of the cervical spine. No acute fracture. Soft tissues: See above. Vasculature: No acute findings. Lymph nodes: Cervical lymphadenopathy is identified, nonspecific as to etiology. Enlarged bilateral level I, level II, and level IV lymph nodes are visualized. Additional small cervical lymph nodes are identified. Lung apices: Unremarkable as visualized. Other findings: There is abnormal density within the anterior mediastinum, suggestive of thymic tissue. IMPRESSION: 1. There is swelling of the adenoids within the posterior nasopharynx. Mucosal enhancement is visualized, which may be inflammatory. 2. There is heterogeneous enhancement of the bilateral palatine tonsils and lingual tonsils. This is likely infectious or inflammatory. There is asymmetric hypertrophy of the right lingual tonsil with effacement of the right vallecula. Clinical correlation is recommended. 3. There is diffuse enlargement of the thyroid, consistent with goiter. 4. There is swelling surrounding the right submandibular gland, suggestive of sialoadenitis. 5. Cervical lymphadenopathy is identified, nonspecific as to etiology. 6. Within the soft tissues lateral to the left parotid gland, there is a 1.5 x 0.9 x 1.9 cm lipomatous lesion/lipoma. 7. Within the soft tissues of the neck midline, there is an isodense nodule measuring 0.8 x 0.5 x 1.9 cm. This is suggestive of ectopic thyroid tissue. 8. A follow-up CT is suggested.
[2017-10-30] MEDS ORDERED: Sodium Chloride 0.9% 1,000 ML IV ONE (21:52)
[2017-10-31] MEDS ORDERED: Piperacillin/Tazobact 3.375 gm 100 ML IVPB SCH
[2017-10-31] MEDS: Meropenem 1 GM in Dextrose 5% In Water 100 ML IVPB SCH ×2 (01:07→05:43)
[2017-10-31 02:11] LABS: VENOUS BLOOD GAS BASE EXCESS -2.2 mmol/L (0.0-2.0); VENOUS BLOOD GAS PO2 34 mm/Hg (30-55); VENOUS BLOOD PH 7.22 (7.32-7.43)
--- NOTE | 2017-10-31 06:46 | CP.PCM.PN ---
Subjective - Date & Time of Evaluation Date of Evaluation: 10/31/17 Time of Evaluation: 06:30 - Subjective Subjective: Pt seen at the request of her RN for her c/o sore throat and bilateral ear pain. She has a temp of 102.4 Denies any ear discharge. Pt was admitted for Neutropenic fever Objective - Vital Signs/Intake and Output Vital Signs (last 24 hours): Temp Pulse Resp BP Pulse Ox 99.0 F 105 H 20 103/64 99 10/31/17 00:01 10/31/17 05:04 10/31/17 00:01 10/31/17 00:01 10/31/17 00:01 Intake and Output: 10/30/17 10/31/17 18:59 06:59 Intake Total 360 Balance 360 - Medications Medications: Current Medications Acetaminophen (Tylenol 325mg Tab) 650 mg PO Q6H PRN PRN Reason: Fever >100.4 F Last Admin: 10/31/17 01:08 Dose: 650 mg Sodium Chloride (Sodium Chloride 0.9%) 1,000 mls @ 80 mls/hr IV .[id number] ONE Stop: 10/31/17 10:21 Last Admin: 10/30/17 23:30 Dose: 80 mls/hr Meropenem 1 gm/ Dextrose 100 mls @ 100 mls/hr IVPB Q8 GRACE PRN Reason: Protocol Stop: 11/06/17 23:46 Last Admin: 10/31/17 05:43 Dose: 100 mls/hr Methimazole (Tapazole) 30 mg PO DAILY GRACE Metoprolol Tartrate (Lopressor) 50 mg PO HS [facility] Last Admin: 10/30/17 22:15 Dose: 50 mg Oseltamivir Phosphate (Tamiflu Cap) 75 mg PO BID GRACE PRN Reason: Protocol Stop: 11/04/17 21:47 - Constitutional Appears: No Acute Distress - Head Exam Head Exam: ATRAUMATIC, NORMAL INSPECTION, NORMOCEPHALIC - Eye Exam Eye Exam: EOMI - ENT Exam ENT Exam: Mucous Membranes Moist, Normal External Ear Exam Additional comments: Throat congested,tonsils enlarged,no exudate.Both TMs are thickened ,no discharge noted. - Neck Exam Neck Exam: Full ROM, Lymphadenopathy (Bilateral tender submandibular nodes noted.), Thyromegaly Additional comments: Small cystic swelling (1/2" diameter) noted on the L side of the neck. - Respiratory Exam Respiratory Exam: Clear to Ausculation Bilateral, NORMAL BREATHING PATTERN - Cardiovascular Exam Cardiovascular Exam: REGULAR RHYTHM, +S1, +S2 - GI/Abdominal Exam GI & Abdominal Exam: Soft, Tenderness, Normal Bowel Sounds - Extremities Exam Extremities Exam: absent: Calf Tenderness, Pedal Edema - Neurological Exam Neurological Exam: Alert, Oriented x3 - Psychiatric Exam Psychiatric exam: Normal Affect - Skin Skin Exam: Dry, Warm. absent: Rash Assessment and Plan - Assessment and Plan (Free Text) Assessment: Fever Sore throat . Bilateral ear pain. Plan: Pt already got a dose of Rocephin in the ER. She also got Zosyn and Merrem. Throat culture was neg for Strep. Tylenol is ordered for pain. Cepacol lozenge ordered now.
[2017-10-31] MEDS ORDERED: Benzocaine/Menthol (Cepacol) Lozenge MT STA (07:03)
[2017-10-31 08:22] LABS: VENOUS BLOOD GAS BASE EXCESS 0.3 mmol/L (0.0-2.0); VENOUS BLOOD GAS PO2 127 mm/Hg (30-55); VENOUS BLOOD PH 7.47 (7.32-7.43)
[2017-10-31 08:23] LABS: HEMOGLOBIN 9.8 g/dL (12.0-16.0); LYMPH # 0.3 (1.2-3.4); LYMPH % 96.3 % (22.0-35.0); MEAN CELL VOLUME 78.3 fl (80.0-105.0); MEAN CORPUSCULAR HEMOGLOBIN 26.2 pg (25.0-35.0); MEAN CORPUSCULAR HGB CONC 33.4 g/dl (31.0-37.0); MEAN PLATELET VOLUME 9.5 fl (7.0-11.0); MONO % 3.7 % (1.0-6.0); RBC 3.74 10^6/uL (3.5-6.1); RED CELL DISTRIBUTION WIDTH 13.7 % (11.5-14.5)
[2017-10-31 08:29] LABS: WHITE BLOOD COUNT 0.3 10^3/ul (4.5-11.0)
[2017-10-31 08:37] LABS: BLOOD UREA NITROGEN 13 mg/dL (7-21); CALCIUM 10.2 mg/dL (8.4-10.5); GFR AFRICAN-AMERICAN > 60; GFR NON-AFRICAN AMERICAN > 60
--- NOTE | 2017-10-31 09:29 | CARD ---
APPROVED REPORT EKG Measurement Heart [id number] <Conclusion> Sinus tachycardia Biatrial enlargement Abnormal ECG
--- NOTE | 2017-10-31 10:06 | RAD ---
HISTORY: Fever COMPARISON: 08/16/2017 FINDINGS: LUNGS: No active pulmonary disease. PLEURA: No significant pleural effusion identified, no pneumothorax apparent. CARDIOVASCULAR: Normal. OSSEOUS STRUCTURES: No significant abnormalities. VISUALIZED UPPER ABDOMEN: Normal. OTHER FINDINGS: None. IMPRESSION: No active disease. No significant interval change compared to the prior examination(s).
[2017-10-31] MEDS: Lactated Ringer's 1,000 ML IV SCH ×2 (10:38→22:06)
[2017-10-31] MEDS: Benzocaine/Menthol (Cepacol) Lozenge MT PRN ×3 (12:48→22:05)
[2017-10-31] MEDS: Meropenem IV 1 gm in NS 50 ML IVPB SCH ×2 (14:30→22:04)
[2017-10-31] MEDS ORDERED: Vancomycin 1.5 GM in Sodium Chloride 0.9% 500 ML IVPB ONE (16:27)
--- NOTE | 2017-10-31 16:37 | CP.PCM.CON ---
History of Present Illness - History of Present Illness History of Present Illness: 32 year old female with PMH of thyroid storm came in to [facility] complaining of fever , pain on swallowing for the past 2-3 days, associated with sore throat. She denies rhinorrhea, no cough, no chest pain. She does not recall specific sick contacts, has some headache, no denies neck pain, no photophobia, no abdominal pain, no nausea or vomiting, no shortness of breath, no dysuria, no diarrhea. In the ED, she was noted to have neutropenia and fever. Infectious Diseases consult is requested to further evaluate and manage. Review of Systems - Review of Systems All systems: reviewed and no additional remarkable complaints except (as per HPI ) Past Patient History - Infectious Disease Hx of Infectious Diseases: None - Past Social History Smoking Status: Former Smoker - CARDIAC Hx Cardiac Disorders: No - PULMONARY Hx Respiratory Disorders: No - NEUROLOGICAL Hx Neurological Disorder: No - HEENT Hx HEENT Problems: No - RENAL Hx Chronic Kidney Disease: No - ENDOCRINE/METABOLIC Hx Endocrine Disorders: Yes - MUSCULOSKELETAL/RHEUMATOLOGICAL Other/Comment: graves disease - PSYCHIATRIC Hx Substance Use: No - SURGICAL HISTORY Hx Section: Yes (2006) - ANESTHESIA Hx Anesthesia: Yes Hx Anesthesia Reactions: No Hx Malignant Hyperthermia: No Meds Allergies/Adverse Reactions: Allergies Allergy/AdvReac Type Severity Reaction Status Date / Time No Known Allergies Allergy Verified 10/23/17 11:12 - Medications Medications: Current Medications Acetaminophen (Tylenol 325mg Tab) 650 mg PO Q6H PRN PRN Reason: Fever >100.4 F Sodium Chloride (Sodium Chloride 0.9%) 1,000 mls @ 80 mls/hr IV .[id number] ONE Stop: 10/31/17 10:21 Last Admin: 10/30/17 23:30 Dose: 80 mls/hr Meropenem 1 gm/ Dextrose 100 mls @ 100 mls/hr IVPB Q8 GRACE PRN Reason: Protocol Stop: 11/06/17 23:46 Methimazole (Tapazole) 30 mg PO DAILY GRACE Metoprolol Tartrate (Lopressor) 50 mg PO HS GRACE Last Admin: 10/30/17 22:15 Dose: 50 mg Oseltamivir Phosphate (Tamiflu Cap) 75 mg PO BID GRACE PRN Reason: Protocol Stop: 11/04/17 21:47 Physical Exam - Constitutional Appears: Other (febrile, feels weak) - Head Exam Head Exam: NORMAL INSPECTION - ENT Exam Additional comments: swelling in oropharyngeal area, swollen tonsils - Neck Exam Neck exam: Negative for: Meningismus - Respiratory Exam Respiratory Exam: Decreased Breath Sounds - Cardiovascular Exam Cardiovascular Exam: +S1, +S2 - GI/Abdominal Exam GI & Abdominal Exam: Soft. absent: Tenderness Results - Vital Signs Recent Vital Signs: Last Vital Signs Temp 98.5 F 10/30/17 22:15 Pulse 95 H 10/30/17 21:30 Resp 20 10/30/17 21:30 BP 110/57 L 10/30/17 21:30 Pulse Ox 100 10/30/17 21:30 - Labs Result Diagrams: 10/31/17 08:00 10/31/17 08:00 Assessment & Plan - Assessment and Plan (Free Text) Plan: Assessment Severe sepsis with febrile neutropenia from acute tonsillopharyngitis R/O CMV R/ O EBV R/O HIV R/O Influenza history of thyroid storm Plan started with a dose of IV Vancomycin and started Merrem pending blood cx, CMV and EBV tests, HIV test, ronny G and C also startd patient on Tamiflu will monitor clinically
--- NOTE | 2017-10-31 20:53 | HP ---
CHIEF COMPLAINT AND HISTORY OF PRESENT ILLNESS: This is a 32-year-old female who is coming into the hospital with complaints of fever and sore throat. She states she has been having these symptoms for the past 2 days prior to coming to the ER. She had gone to an urgent care center and was found to have negative for flu and strep. The patient was evaluated by her primary care doctor and was advised to come to the hospital for further evaluation. The patient was found to have a low white count. She states that she has not been able to eat and drink well. She denies any nausea or vomiting. She has no abdominal pain or back pain. No dysuria, frequency, or nocturia. The patient has weakness and fatigue. REVIEW OF SYMPTOMS: All other review of symptoms are within normal limits except what was mentioned. ALLERGIES: NO KNOWN DRUG ALLERGIES. PAST MEDICAL HISTORY: Graves disease. HOME MEDICATIONS: Metoprolol and Tapazole. SOCIAL HISTORY: She is a former smoker. She denies alcohol use. FAMILY HISTORY: Noncontributory. PHYSICAL EXAMINATION: VITAL SIGNS: Temperature is 102.8, pulse 107, blood pressure 106/55, respirations 22. Height is 5 feet 4 inches, weight is 120 pounds. GENERAL: The patient lying in bed, uncomfortable, and in no acute distress. HEENT: Atraumatic and normocephalic. Anicteric sclerae. Moist mucosa. Rawlings conjunctivae. No oral lesions. NECK: No JVD, , thyromegaly, or bruits. CARDIOVASCULAR: S1 and S2 regular. No murmur, rubs, or gallop. LUNGS: Clear to auscultation bilaterally. No wheezes, rales, or rhonchi. ABDOMEN: Bowel sounds are positive. Soft, nontender and nondistended. No hepatosplenomegaly. No rebound and no guarding EXTREMITIES: No cyanosis, clubbing, or edema. NEUROLOGIC: No facial asymmetry. Tongue is midline. No uvula deviation. Power is 5/5 upper extremity and lower extremity. Sensation intact in upper extremity and lower extremity. PSYCHIATRIC: She is awake, alert and oriented x3. No anxiety or depression. She has normal affect. GENITOURINARY: No CVA tenderness. VASCULAR: 2+ pulses in the carotid pulses and pedal pulses. SKIN: No erythema or nodules SPINE: Shows normal curvature. LABORATORY DATA: White count is 0.4, hemoglobin 11.5, platelet count 201. ABG done shows a pH of 7.39, pCO2 of 44. Chemistry shows sodium 132, potassium is 3.8. Creatinine of 0.6. TSH of 0.02. Free T4 is 2.6. Serology shows influenza A is negative. Group A beta strep is negative. A CT of the neck shows swelling of the adenoids within the posterior nasopharynx. ASSESSMENT: 1. Fever. 2. Neutropenia. 3. Viral syndrome. 4. Hyperthyroidism. PLAN: The patient is going to be admitted to the hospital. She has elevated temperature. The patient is going to be admitted. I will give her lactated Ringer. She is having fevers. She is on Tylenol. I will continue her on Tamiflu. She is Tapazole. She is going to be followed with Dr. Mensah for consultation from [place]. The patient has throat cultures and blood cultures that have been negative. We will continue to follow closely. Jose Raul Yarbrough MD
[2017-11-01] MEDS: Benzocaine/Menthol (Cepacol) Lozenge MT PRN (05:00)
[2017-11-01] MEDS: Meropenem IV 1 gm in NS 50 ML IVPB SCH ×3 (05:01→21:26)
[2017-11-01 06:56] LABS: GRAN # 0.02 (1.4-6.5); GRAN % 5.1 % (50.0-68.0); HEMOGLOBIN 9.4 g/dL (12.0-16.0); LYMPH # 0.4 (1.2-3.4); LYMPH % 92.3 % (22.0-35.0); MEAN CELL VOLUME 78.4 fl (80.0-105.0); MEAN CORPUSCULAR HGB CONC 33.2 g/dl (31.0-37.0); MEAN PLATELET VOLUME 10.1 fl (7.0-11.0); MONO % 2.6 % (1.0-6.0); RBC 3.61 10^6/uL (3.5-6.1); RED CELL DISTRIBUTION WIDTH 13.7 % (11.5-14.5)
[2017-11-01 07:33] LABS: WHITE BLOOD COUNT 0.4 10^3/ul (4.5-11.0)
[2017-11-01 07:36] LABS: BLOOD UREA NITROGEN 12 mg/dL (7-21); GFR AFRICAN-AMERICAN > 60; GFR NON-AFRICAN AMERICAN > 60
[2017-11-01] MEDS: Fluconazole IV 200mg/100 ml NS 100 ML IVPB SCH (12:26)
--- NOTE | 2017-11-01 14:37 | CP.PCM.PN ---
Subjective - Date & Time of Evaluation Date of Evaluation: 11/01/17 Time of Evaluation: 10:25 - Subjective Subjective: Patient is still having pain in the neck, fevers are not as high as previous days but patient still feels miserable. Objective - Vital Signs/Intake and Output Vital Signs (last 24 hours): Temp Pulse Resp BP Pulse Ox 100 F H 111 H 21 121/56 L 99 11/01/17 06:00 11/01/17 06:00 11/01/17 06:00 11/01/17 06:00 11/01/17 06:00 Intake and Output: 11/01/17 11/01/17 06:59 18:59 Intake Total 1890 Output Total 0 Balance 1890 - Medications Medications: Current Medications Acetaminophen (Tylenol 325mg Tab) 650 mg PO Q4 PRN PRN Reason: Pain, moderate (4-7) Last Admin: 11/01/17 05:00 Dose: 650 mg Acetaminophen (Tylenol 325mg Tab) 650 mg PO Q4 PRN PRN Reason: Fever >100.4 F Benzocaine/Menthol (Cepacol Sore Throat) 1 martín MT Q2H PRN PRN Reason: Sore Throat Last Admin: 11/01/17 05:00 Dose: 1 martín Meropenem (Merrem Iv 1 Gm Premix) 50 mls @ 100 mls/hr IVPB Q8 GRACE PRN Reason: Protocol Stop: 11/06/17 23:46 Last Admin: 11/01/17 05:01 Dose: 100 mls/hr Methimazole (Tapazole) 30 mg PO DAILY [facility] Last Admin: 10/31/17 09:06 Dose: 30 mg Metoprolol Tartrate (Lopressor) 50 mg PO HS [facility] Last Admin: 10/31/17 22:07 Dose: 50 mg Oseltamivir Phosphate (Tamiflu Cap) 75 mg PO BID [facility]ACE PRN Reason: Protocol Stop: 11/04/17 21:47 Last Admin: 10/31/17 17:43 Dose: 75 mg - Labs Labs: 11/01/17 06:00 11/01/17 06:00 - Constitutional Appears: Chronically Ill - Head Exam Head Exam: NORMAL INSPECTION - Neck Exam Neck Exam: absent: Meningismus Additional comments: swelling of the anterior neck - Respiratory Exam Respiratory Exam: Decreased Breath Sounds. absent: Rales - Cardiovascular Exam Cardiovascular Exam: +S1, +S2 - GI/Abdominal Exam GI & Abdominal Exam: Soft. absent: Tenderness Assessment and Plan - Assessment and Plan (Free Text) Plan: Assessment Severe sepsis with febrile neutropenia from acute tonsillopharyngitis R/O CMV R/ O EBV R/O HIV R/O Influenza history of thyroid storm Plan given a dose of IV Vancomycin and continue Merrem day 2; blood cx are negative, CMV and EBV tests are pending; HIV test is negative, follow up urine G and C; RPR is negative; will also check Qunatiferon TB test (but less likely) continue Tamiflu day 2 as well discussed with Dr. Espinal - Methimazole is uncommonly associated with agranulocytosis - may need to consider discontinuing the medication follow up Hematology evaluation - may need repeat CT neck and chest if patient does not improve will continue to monitor clinically
--- NOTE | 2017-11-01 17:34 | US ---
HISTORY: Liver and spleen; infection. Neutropenic fever COMPARISON: None. TECHNIQUE: Sonographic evaluation of the abdomen. FINDINGS: LIVER: The liver is enlarged measuring approximately 20 cm in CC dimension. Liver demonstrates smooth contour and normal echotexture. No obvious hepatic mass collection or calcification. No significant intrahepatic biliary ductal dilatation. No evidence of abdominal ascites. GALLBLADDER: Gallbladder is appears incompletely distended which may in part account for thick-walled appearance. . This could be due to nonfasting state however clinical correlation with history recommended. . No evidence of intraluminal gallbladder calculi. No pericholecystic fluid collections or sonographic Crawford sign. COMMON BILE DUCT: Measures 4.2 mm. No stones. No dilatation. PANCREAS: Unremarkable as visualized. No mass. No ductal dilatation. RIGHT KIDNEY: Measures 11.2 x 5.0 x 5.7cm. Normal echogenicity. No calculus, mass, or hydronephrosis. LEFT KIDNEY: Measures 12.1 x 5.0 x 5.4cm. Normal echogenicity. No calculus, mass, or hydronephrosis. SPLEEN: Spleen is mildly enlarged measuring approximately 13.4 cm in greatest dimension. No obvious splenic mass or collection. AORTA: No aneurysmal dilatation. IVC: Unremarkable. OTHER FINDINGS: None. IMPRESSION: Hepatosplenomegaly. Gallbladder is incompletely distended which may account for thick-walled appearance up possibly due to nonfasting state however clinical correlation with history recommended.
[2017-11-01] MEDS ORDERED: Potassium Chloride 40 mEq/30 ml LIQ UD PO STA (17:55)
[2017-11-01] MEDS: Morphine 10 mg/5 ml Oral Soln PO PRN (21:39)
--- NOTE | 2017-11-01 23:33 | CON ---
DATE: 11/01/2017 HISTORY OF PRESENT ILLNESS: Ms. Ryder is a 32-year-old young female admitted to the hospital with high-grade fever, difficulty swallowing. Symptoms consistent with severe pharyngitis, rapid flu, and strep negative. She is also complaining of difficulty swallowing. Neck pain both sides. CT head show mild lymphadenopathy. No abscess collection in the neck area. She is currently on IV antibiotic as per ID. Fever, per her decreased. No nausea, no vomiting. No diarrhea. No abdominal pain. History of thyroid storm, on metoprolol and methimazole. She was severely neutropenic with AMC of 0. PAST MEDICAL HISTORY: Thyroid disorder, Graves' disease. PAST SURGICAL HISTORY: . PERSONAL HISTORY: Former smoker. Alcohol none. FAMILY HISTORY: Noncontributory. ALLERGIES: NO KNOWN DRUG ALLERGIES. HOME MEDICATIONS: Lopressor 50 mg p.o. at bedtime, methimazole 30 mg p.o. daily. REVIEW OF SYSTEMS: As per HPI. Rest of 12-point review of systems reviewed negative. PHYSICAL EXAMINATION: VITAL SIGNS: T-max 103, heart rate is 90 per minute, respiratory rate 20 per minute, blood pressure 110/57, pulse ox is 100% on room air. HEENT: Small lymph node present on right side of the neck, one on the left side of the neck. NECK: Tender to touch. CHEST: Air entry present, equal bilaterally. No added sounds. CARDIOVASCULAR: S1, S2 normal. No murmur. No gallop. ABDOMEN: Soft, nontender. No hepatosplenomegaly. EXTREMITIES: No edema. SKIN: No petechiae. No rash. FUR [employer] CLEANER: Alert, oriented x3. No focal sensory or motor deficit. SPINE: Nontender. LABORATORY DATA: White count 0.4, hemoglobin 11.5, hematocrit 34.1, platelet count 201. Sodium 132, potassium 3.8, BUN 17, creatinine 0.6. Glucose 134. AMC 0. CT neck, no abscess collection. No neck mass. ASSESSMENT: 1. Fever. 2. Pancytopenia. 3. Severe neutropenia. 4. Sepsis. 5. Graves' disease. PLAN: Tylenol 650 every 4 hours p.r.n. I will add Diflucan 200 mg IV daily. Difficulty in swallowing can be due to mucositis or candidiasis. She is currently on meropenem as per ID, Tamiflu 75 mg p.o. b.i.d. She is asking something stronger for pain. We will give morphine solution 10 mg every 4 hours p.r.n. for throat pain. Continue Lopressor 50 mg at bedtime and methimazole 30 mg p.o. daily. Plan is to do bone marrow aspiration biopsy tomorrow if there is no improvement in blood count. EBV IgG high 199, IgM is negative. HIV negative. Influenza serology negative. We will do the ultrasound of her abdomen for hepatosplenomegaly. Brielle Hernandez MD
[2017-11-02] MEDS: Benzocaine/Menthol (Cepacol) Lozenge MT PRN (02:15)
[2017-11-02] MEDS: Meropenem IV 1 gm in NS 50 ML IVPB SCH ×2 (05:57→17:26)
[2017-11-02] MEDS: Fluconazole IV 200mg/100 ml NS 100 ML IVPB SCH (09:33)
[2017-11-02 11:20] LABS: HEMOGLOBIN 8.6 g/dL (12.0-16.0); LYMPH # 0.5 (1.2-3.4); MEAN CELL VOLUME 77.5 fl (80.0-105.0); MEAN CORPUSCULAR HEMOGLOBIN 26.5 pg (25.0-35.0); MEAN CORPUSCULAR HGB CONC 34.1 g/dl (31.0-37.0); MEAN PLATELET VOLUME 9.7 fl (7.0-11.0); RBC 3.25 10^6/uL (3.5-6.1)
[2017-11-02 11:22] LABS: WHITE BLOOD COUNT 0.5 10^3/ul (4.5-11.0)
--- NOTE | 2017-11-02 12:02 | CP.PCM.PN ---
Subjective - Date & Time of Evaluation Date of Evaluation: 11/02/17 Time of Evaluation: 10:20 - Subjective Subjective: Still having fevers, neck pain, pain on swallowing, although a little better. No rash, no nausea, no diarrhea. Objective - Vital Signs/Intake and Output Vital Signs (last 24 hours): Temp Pulse Resp BP Pulse Ox 101 F H 97 H 20 125/53 L 99 11/02/17 05:57 11/02/17 05:47 11/02/17 05:47 11/02/17 05:47 11/02/17 05:47 Intake and Output: 11/02/17 11/02/17 06:59 18:59 Intake Total 180 Output Total 0 Balance 180 - Medications Medications: Current Medications Acetaminophen (Tylenol 325mg Tab) 650 mg PO Q4 PRN PRN Reason: Fever >100.4 F Last Admin: 11/02/17 05:57 Dose: 650 mg Acetaminophen (Tylenol 325mg Tab) 650 mg PO Q4 PRN PRN Reason: Pain, Mild (1-3) Last Admin: 11/02/17 02:16 Dose: 650 mg Benzocaine/Menthol (Cepacol Sore Throat) 1 martín MT Q2H PRN PRN Reason: Sore Throat Last Admin: 11/02/17 02:15 Dose: 1 martín Meropenem (Merrem Iv 1 Gm Premix) 50 mls @ 100 mls/hr IVPB Q8 [facility] PRN Reason: Protocol Stop: 11/06/17 23:46 Last Admin: 11/02/17 05:57 Dose: 100 mls/hr Fluconazole (Diflucan Iv 200 Mg/100 Ml Ns) 100 mls @ 100 mls/hr IVPB DAILY [facility] PRN Reason: Protocol Last Admin: 11/01/17 12:26 Dose: 100 mls/hr Methimazole (Tapazole) 30 mg PO DAILY [facility] Last Admin: 11/01/17 09:56 Dose: 30 mg Metoprolol Tartrate (Lopressor) 50 mg PO HS [facility] Last Admin: 11/01/17 21:26 Dose: 50 mg Morphine Sulfate (Morphine Oral Soln) 10 mg PO Q4 PRN PRN Reason: Pain, moderate (4-7) Last Admin: 11/01/17 21:39 Dose: 10 mg Oseltamivir Phosphate (Tamiflu Cap) 75 mg PO BID [facility] PRN Reason: Protocol Stop: 11/04/17 21:47 Last Admin: 11/01/17 18:35 Dose: 75 mg - Labs Labs: 11/01/17 06:00 11/01/17 06:00 - Constitutional Appears: Other (in pain, ill-appearing) - Head Exam Head Exam: NORMAL INSPECTION - Neck Exam Neck Exam: absent: Meningismus Additional comments: swelling noted, especially on the right side, with some tenderness noted - Respiratory Exam Respiratory Exam: Decreased Breath Sounds. absent: Rales - Cardiovascular Exam Cardiovascular Exam: +S1, +S2 - GI/Abdominal Exam GI & Abdominal Exam: Soft. absent: Tenderness Assessment and Plan - Assessment and Plan (Free Text) Plan: Assessment Severe sepsis with febrile neutropenia from acute tonsillopharyngitis R/O CMV R/ O EBV R/O Influenza; there is also concern for leukemia or lymphoma since patient has borderline hepatosplenomegaly on ultrasound of the abdomen history of thyroid storm / Graves' disease Plan continue Merrem day 3 and will also start Doxycycline; blood cx are negative, CMV antibodies are negative but will get CMV PCR; EBV tests show positive IgG but negative IgM HIV test is negative follow up urine G and C; RPR is negative follow up Quantiferon TB test (but less likely) continue Tamiflu day 3 as well will repeat CT neck and chest since patient is not improving discussed with Dr. Hernandez - for bone marrow biopsy Methimazole may be associated with agranulocytosis, but does not explain hepatosplenomegaly - suggest holding Methimazole for now will continue to monitor clinically
[2017-11-02 12:15] LABS: BLOOD UREA NITROGEN 8 mg/dL (7-21); GFR AFRICAN-AMERICAN > 60; GFR NON-AFRICAN AMERICAN > 60
[2017-11-02] MEDS: Lidocaine 1% Inj (20ml) ONE ×2 (12:40→15:14)
[2017-11-02] MEDS ORDERED: Lidocaine 1% Inj (20ml) IJ STA (13:39)
--- NOTE | 2017-11-02 16:39 | CT ---
PROCEDURE: CT neck chest with contrast HISTORY: rule out venous thrombosis, jugular vein thrombosis COMPARISON: 10/30/2017 CT neck TECHNIQUE: 150 cc Omnipaque 350 administered intravenously. 2.5 mm axial acquisition and display. Coronal and sagittal reconstructions. Dose report (mGy-cm): FINDINGS: Nasopharynx: Diffuse nasopharyngeal edema including medial lateral pterygoids. Oropharynx: Diffuse edema involving the oropharynx without discrete, drainable collection. This affects palatine and lingual tonsils. Lymphadenopathy: Extensive bilateral lymphadenopathy including levels 1, 2A and 2B, level 5 lymph nodes. Thyroid gland: Enlarged thyroid gland bilaterally without focal abnormality. No evidence of internal jugular vein thrombosis. Carotid vertebral artery is bar within normal limits as visualized. Cardiac and pericardial structures: Unremarkable CT thorax: Patent superior vena cava, right axillary vein. No abnormalities visualized inferior vena cava. Pulmonary parenchyma: No suspicious pulmonary nodules, masses or infiltrates. Lymphadenopathy in the thorax: No significant supraclavicular, axillary, hilar, mediastinal lymphadenopathy. IMPRESSION: 1. Marked nasopharyngeal and oral pharyngeal edema. 2. Diffuse bilateral presumed reactive lymphadenopathy in the neck. . 3. No evidence of vascular occlusion, thrombosis. 4. No suspicious findings in the thorax. No venous or arterial abnormalities. 5. No suspicious pulmonary nodules, masses, infiltrates. No visible/significant lymphadenopathy.
--- NOTE | 2017-11-02 17:47 | CT ---
PROCEDURE: HISTORY: rule out sinusitis, thrombosis COMPARISON: Limited correlation a prior neck CT with contrast 10/30/2017. TECHNIQUE: Serial CT section for TURP performed through the brain and sinuses for evaluation of sinusitis. Contrast Dose: Radiation dose:Total exam DLP = mGy-cm. This CT exam was performed using one or more of the following dose reduction techniques: Automated exposure control, adjustment of the mA and/or kV according to patient size, and/or use of iterative reconstruction technique. 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 Mucosal inflammatory changes affect multiple mid and posterior ethmoid air cells bilaterally. Limited mucosal inflammatory changes are seen at the left sphenoid sinus. No prominent opacification is identified throughout. Mucosal inflammatory changes narrow the right hiatus semilunaris with the left ostiomeatal unit unremarkable in the right maxillary ostium appears widely patent nevertheless. Limited mucosal inflammatory changes narrow the bilateral frontal recesses as well as the right sphenoid ethmoidal recess with the left sphenoid ethmoidal recess is widely patent. Midline nasal septum is evident without deviation. There is nonspecific heterogeneous enhancement of the tonsillar pillars bilaterally which appears somewhat prominent may reflect element tonsillitis. Clinically correlate. The salivary glands appear unremarkable. The visualized upper segments of the bilateral thyroid gland appear unremarkable. Homogeneous enhancement at the bilateral internal jugular veins identified as well as the visualized common and internal carotid arteries with no thrombosis appreciable grossly. Extensive cervical lymphadenopathy is reiterated which appears predominantly suprahyoid, involving the bilateral jugulodigastric less than posterior triangle lymph node chains once again. A right posterior triangle lymph node measures 2.4 x 1.3 cm and there is a 2.6 x 1.4 cm right posterior triangle enlarged lymph node with numerous additional lymph nodes seen throughout both sides. Likely 1.5 cm subcutaneous lipoma left neck medially posterior to the left vertical mandibular ramus by 2-3 cm. IMPRESSION: 1. Limited sinus disease involving parietal a bilateral ethmoid sinuses and left sphenoid sinus without prominent opacification. 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 Narrowing of various sinus drainage pathways by mucosal inflammatory change as above. 2. Extensive neck lymphadenopathy greater at the posterior triangles bilaterally then at the jugular digastric lymph node chains which may reflect potential scalp or upper neck infectious or inflammatory process or generalized infectious or inflammatory insult to the immune system. Clinically correlate further. Potential tonsillitis. No abscess appreciated. 3. No definitive pattern of venous arterial thrombosis in the major vasculature of the neck.
--- NOTE | 2017-11-02 23:09 | PROCN ---
DATE: 11/02/2017 TYPE OF PROCEDURE: 1. Bone marrow aspiration. 2. Bone marrow biopsy. INDICATION FOR PROCEDURE: Pancytopenia. ANESTHESIA: 1% lidocaine. The patient was laid in left lateral position. Left iliac crest was cleaned and draped. Local anesthesia with 1% lidocaine. Weaving Professor was staff nurse, Ms. . Bone marrow aspiration specimen taken with Jamshidi needle. Sent for molecular studies, flow cytometry stat and cytogenetics. Bone marrow aspiration biopsy specimen obtained with separate bone marrow puncture site with Jamshidi needle. Specimen sent to [facility]. The patient tolerated the procedure well. She required 2 mg of IV Ativan because of extreme anxiety. No complication with pain or bleeding. Sterile dressing was placed. Vitals stable postprocedure. Brielle Hernandez MD
--- NOTE | 2017-11-02 23:42 | PN ---
DATE: 11/02/2017 FOLLOWUP NOTE SUBJECTIVE: She continues to have high fever. T-max was 102, has difficulty in swallowing. She is on IV Diflucan for presumed mucositis. She has pancytopenia, profound neutropenia with AMC of 0. Flu serology is negative. She is on broad-spectrum IV antibiotics as per ID. She also has lymph node swelling in the neck. CAT scan of the chest and sinuses were ordered today. It showed bilateral reactive lymphadenopathy in the neck. No vascular occlusion. No suspicious finding in the thorax. No pulmonary nodule or infiltrates. Maxillofacial CT showed limited sinus disease. REVIEW OF SYSTEMS: As per HPI. Rest of the 12-point review of systems reviewed and negative. MEDICATIONS: Tylenol 650 every 4 hours p.r.n., doxycycline every 12 hours, Diflucan daily, meropenem every 8 hours, methimazole 30 mg p.o. daily, Lopressor 50 mg p.o. at bedtime, morphine 10 mg every 4 hours p.r.n. oral solution, Tamiflu 75 b.i.d., potassium daily. LABORATORY DATA: White count 0.5, hemoglobin 8.6, hematocrit 25.2, platelets 143. Sodium 139, potassium 3.4, BUN 8, creatinine 0.4. EBV IgG positive. PHYSICAL EXAMINATION: GENERAL: Comfortable in chair, no acute distress. VITAL SIGNS: Temperature 98.7, heart rate 80 per minute, blood pressure 143/90, respiratory rate 20 per minute, oxygen saturation 100% on room air. HEENT: Pallor positive. NECK: B/L lymphadenopathy. CHEST: Air entry present and equal bilaterally. No added sounds. CARDIOVASCULAR: S1, S2 normal. No murmur. No gallop. ABDOMEN: Soft, nontender. No hepatosplenomegaly. EXTREMITIES: No edema. NEUROLOGIC: Alert, oriented x3. No focal sensorimotor deficit. ASSESSMENT AND PLAN: 1. Fever. 2. Cervical lymphadenopathy. 3. Hepatosplenomegaly. 4. Pancytopenia. PLAN: 1. Pancytopenia, cervical lymphadenopathy and hepatosplenomegaly. Hepatosplenomegaly is very concerning for acute leukemia. Bone marrow aspiration biopsy done today. Flow cytometry sent. molecular studies were sent. Results are pending. 2. Infectious Disease. High fever with lymphadenopathy, hepatosplenomegaly. Broad-spectrum IV antibiotics and antifungal. She is also on Tamiflu and continues to have high fever. ID, Dr. Zhu, following. Fever curve has decreased. Last fever was at noon time, 102.8. Renal functions within normal limits. LFTs normal. We will continue methimazole for hyperthyroidism. Brielle Hernandez MD [email or web address]
[2017-11-03] MEDS: Morphine 10 mg/5 ml Oral Soln PO PRN (03:55)
[2017-11-03] MEDS: Meropenem IV 1 gm in NS 50 ML IVPB SCH ×3 (05:13→14:48)
[2017-11-03] MEDS: Potassium Chloride 40 mEq/30 ml LIQ UD PO SCH (11:16)
[2017-11-03] MEDS: Fluconazole IV 200mg/100 ml NS 100 ML IVPB SCH (11:16)
[2017-11-03] MEDS: Oxycodone/Acetaminophen 5/325 mg Tab PO PRN ×2 (13:16→18:38)
[2017-11-03] MEDS: Micafungin 100 MG in Sodium Chloride 0.9% 100 ML IV SCH (16:10)
--- NOTE | 2017-11-03 17:38 | PN ---
DATE: SUBJECTIVE: Patient is in bed, in no acute distress, nontoxic. PHYSICAL EXAMINATION: VITAL SIGNS: Patient's temperature is 99, T-max is 101.4, blood pressure is 130/60, respiratory rate of 20, heart rate of 98. HEENT: Unremarkable. NECK: Supple. LUNGS: Have decreased breath sounds. HEART: Normal S1 and S2. ABDOMEN: Soft, nontender. LABORATORY AND IMAGING DATA: Reveals a white count of 0.5, hemoglobin of 8, MCV of 77, with platelets of 143, with 100% lymphocytosis. Blood gases are noted. Chemistries revealed BUN of 8, creatinine of 0.4. RPR is negative. Lily-Jones virus Capsid antigen and IgM antibody is negative. Nuclear antigen antibody also for Lily-Jones virus is negative. HIV is negative. Stutsman screen is negative. Influenza is negative. Group B Strep is negative. Microbiology is negative. Blood cultures group A Strep isolated from the throat cultures. Dr. Hernandez's note from yesterday is reviewed. Bone marrow aspirate and biopsy's procedure note, patient tolerated the procedure well, and progress note from yesterday by Dr. Hernandez is also reviewed. There is concern about acute leukemia, and cultures negative. Patient is currently on fluconazole, meropenem, omeprazole, Tapazole. Patient had a CAT scan of the neck and chest, no suspicious pulmonary nodules, masses or infiltrates. No visible significant lymphadenopathy. Bilateral presumed reactive lymphadenopathy, marked nasopharyngeal and oropharyngeal edema. ASSESSMENT AND PLAN: A 32-year-old female with severe sepsis and febrile neutropenia, acute tonsillopharyngitis, concern about leukemia, febrile neutropenic patient, on meropenem day #4 and persistent neutropenia. We will start Mycamine antifungal therapy, discontinue fluconazole. Patient is also on doxycycline. Human immunodeficiency virus PCR will be ordered, I doubt the human immunodeficiency virus related. Awaiting for bone marrow biopsy. Review of the liver function tests were normal. She had abdominal CAT scan also. We will follow with you. Jerry Mensah MD
--- NOTE | 2017-11-04 | PN ---
DATE: SUBJECTIVE: Patient is a [id number] female, seen and examined. Lying in bed, seems to be comfortable. No nausea, vomiting, or diarrhea. Complains of generalized aches and pain, more so in both legs. She states Tylenol is not helping. PHYSICAL EXAMINATION: VITAL SIGNS: Temperature of 99.5, T-max 101.4, pulse 103, respiration 18, blood pressure 117/75. LUNGS: Bilateral good airflow. No rhonchi or crackle. HEART: S1, S2 audible. ABDOMEN: Soft, nontender. No rebound. No guarding. NEUROLOGIC: She is awake and alert. Able to communicate. EXTREMITIES: Moves all extremities. Does have pain in both ankles and calf muscles. LABORATORY DATA: WBC 0.5, hemoglobin 8.6, hematocrit 25.2, platelets of 143. Chemistry: Sodium 139, potassium 3.4, chloride 104, CO2 of 24, BUN 8, creatinine 0.4, blood sugar of 80. EBV capsid antigen is 199. Blood cultures and urine cultures are negative. She had CT scan of the chest, neck, and maxillofacial area that shows nasopharyngeal and oropharyngeal edema, diffuse bilateral lymphadenopathy. She has bilateral ethmoid sinus and the left sphenoid sinus without prominent opacification, but has extensive neck lymphadenopathy. Abdominal ultrasound shows hepatosplenomegaly and gallbladder is incompletely distended. ASSESSMENT: 1. Generalized lymphadenopathy, rule out lymphoma. 2. Pancytopenia. 3. Fever with pancytopenia, rule out underlying viral disease. 4. History of hyperthyroidism. PLAN: Currently, we will give patient a dose of Percocet. Her sepsis workup is pending. Currently, patient is on doxycycline, meropenem, and Mycamine. She has been started on Tamiflu. We will follow up CBC and CMP in a.m. Luis Estrada MD
[2017-11-04] MEDS: Meropenem IV 1 gm in NS 50 ML IVPB SCH ×4 (00:02→21:34)
[2017-11-04] MEDS: Oxycodone/Acetaminophen 5/325 mg Tab PO PRN ×3 (00:03→20:18)
[2017-11-04 06:50] LABS: GRAN # 0.02 (1.4-6.5); GRAN % 1.8 % (50.0-68.0); HEMOGLOBIN 8.9 g/dL (12.0-16.0); LYMPH % 96.3 % (22.0-35.0); MEAN CELL VOLUME 77.9 fl (80.0-105.0); MEAN CORPUSCULAR HEMOGLOBIN 25.2 pg (25.0-35.0); MEAN CORPUSCULAR HGB CONC 32.4 g/dl (31.0-37.0); MONO % 1.9 % (1.0-6.0); PLATELET COUNT 229 10^3/uL (120.0-450.0); RBC 3.53 10^6/uL (3.5-6.1); RED CELL DISTRIBUTION WIDTH 14.3 % (11.5-14.5)
[2017-11-04 07:00] LABS: ALBUMIN 3.1 g/dL (3.0-4.8); ALT/SGPT 37 U/L (7-56); AST/SGOT 20 U/L (14-36); BLOOD UREA NITROGEN 9 mg/dL (7-21); CALCIUM 9.7 mg/dL (8.4-10.5); GFR AFRICAN-AMERICAN > 60; GFR NON-AFRICAN AMERICAN > 60
[2017-11-04 07:23] LABS: WHITE BLOOD COUNT 1.1 10^3/ul (4.5-11.0)
[2017-11-04 09:21] LABS: LYMPHOCYTE 97 % (22.0-35.0); MONOCYTE 2 % (1.0-6.0); NEUTROPHIL 1 % (50.0-70.0); PLATELET ESTIMATE NORMAL (NORMAL)
--- NOTE | 2017-11-04 09:36 | PN ---
DATE: 11/04/2017 SUBJECTIVE: Patient was seen earlier today in room 262, bed 2. No fever and no chills. No nausea, no vomiting. No chest pain. She did have fevers earlier. PHYSICAL EXAMINATION: VITAL SIGNS: Temperature is 98, T-max is 101, blood pressure is 123/60, respiratory rate of 18. HEENT: Unremarkable. NECK: Supple. LUNGS: Have decreased breath sounds. HEART: Normal S1 and S2. ABDOMEN: Soft. LABORATORY DATA: Reveals a white count of 1.1, hemoglobin of 8, platelets of 229. Chemistries reveal a BUN of 9, creatinine of 0.9. Serology is noted. Dr. Estrada's note is reviewed. ASSESSMENT AND PLAN: A 32-year-old female with severe sepsis, febrile neutropenia, acute tonsillopharyngitis, concerned about lymphoma versus leukemia, neutropenic febrile. Patient on meropenem, on doxycycline. The patient was in [facility] in March. We will order chikungunya serology, although incubation period is long. Waiting for bone marrow biopsy and we will make further recommendations. Jerry Mensah MD
[2017-11-04] MEDS: Potassium Chloride 40 mEq/30 ml LIQ UD PO SCH (11:01)
--- NOTE | 2017-11-04 15:52 | PN ---
DATE: SUBJECTIVE: The patient is 32-year-old patient of Dr. Hernandez, who was admitted because of generalized weakness and generalized lymphadenopathy, more pronounced in the neck area. The question was to rule out lymphoma versus viral syndrome. PHYSICAL EXAMINATION: GENERAL: She is awake, alert, oriented, communicative. Has generalized weakness. She also has some difficulty swallowing. VITAL SIGNS: This morning, temperature is 101.1, pulse 97, respirations 18, blood pressure 123/62. LUNGS: Bilateral fair airflow. No rhonchi or crackles. HEART: S1 and S2 audible. ABDOMEN: Soft, nontender. No rebound. No guarding. LYMPHATIC: She does have palpable lymph nodes, slightly tender in the neck area. EXTREMITIES: Bilateral legs, no edema. LABORATORY DATA: WBC is 1.1, hemoglobin 8.9, hematocrit 27.5, and platelets of 229. Chemistry: Sodium 140, potassium 4.3, chloride 105, CO2 of 25, BUN 9, creatinine 0.5, and blood sugar of 95. Her Lily-Jones virus IgG is positive at 199 and influenza type A antibody positive on evaluation with titer of 1:32. CMV titer is negative. Her HIV test is negative. CT scan of the neck and maxillofacial area shows generalized lymphadenopathy. ASSESSMENT: 1. Pancytopenia, probably secondary to viral syndrome. 2. Spiking fevers. 3. Generalized lymphadenopathy. PLAN: Currently, the patient is on doxycycline. She is on meropenem, Mycamine. Percocet as needed. She has been started on Tamiflu. The patient also states that she was started on Tapazole almost a month ago, that could be a reason for her pancytopenia. I will continue current antibiotics. Monitor her CBC and CMP in a.m. Luis Estrada MD
[2017-11-05] MEDS: Oxycodone/Acetaminophen 5/325 mg Tab PO PRN ×2 (03:21→13:17)
[2017-11-05 06:32] LABS: GRAN # 0.03 (1.4-6.5); GRAN % 2.7 % (50.0-68.0); HEMOGLOBIN 8.8 g/dL (12.0-16.0); LYMPH # 1.1 (1.2-3.4); LYMPH % 96.4 % (22.0-35.0); MEAN CELL VOLUME 77.7 fl (80.0-105.0); MEAN CORPUSCULAR HEMOGLOBIN 25.1 pg (25.0-35.0); MEAN CORPUSCULAR HGB CONC 32.4 g/dl (31.0-37.0); MEAN PLATELET VOLUME 10.3 fl (7.0-11.0); MONO % 0.9 % (1.0-6.0); RBC 3.5 10^6/uL (3.5-6.1); RED CELL DISTRIBUTION WIDTH 14.4 % (11.5-14.5)
[2017-11-05 06:43] LABS: ALB/GLOB RATIO 0.9 (1.1-1.8); ALBUMIN 3.2 g/dL (3.0-4.8); ALT/SGPT 34 U/L (7-56); AST/SGOT 22 U/L (14-36); BLOOD UREA NITROGEN 14 mg/dL (7-21); CALCIUM 10.2 mg/dL (8.4-10.5); GFR AFRICAN-AMERICAN > 60; GFR NON-AFRICAN AMERICAN > 60
[2017-11-05] MEDS: Meropenem IV 1 gm in NS 50 ML IVPB SCH (06:50)
[2017-11-05 06:53] LABS: WHITE BLOOD COUNT 1.1 10^3/ul (4.5-11.0)
[2017-11-05 08:21] VITALS: RESP 19
[2017-11-05] MEDS: Micafungin 100 MG in Sodium Chloride 0.9% 100 ML IV SCH (10:33)
[2017-11-05] MEDS: Potassium Chloride 40 mEq/30 ml LIQ UD PO SCH (10:34)
[2017-11-05] MEDS ORDERED: Meropenem 1 GM in Dextrose 5% In Water 100 ML IVPB SCH (14:00)
[2017-11-05] MEDS ORDERED: Meropenem IV 1 gm in NS 50 ML IVPB SCH (14:00)
--- NOTE | 2017-11-05 15:59 | CP.PCM.PN ---
Subjective - Date & Time of Evaluation Date of Evaluation: 11/05/17 Time of Evaluation: 10:50 - Subjective Subjective: Patient still having fevers, still with throat pain. Objective - Vital Signs/Intake and Output Vital Signs (last 24 hours): Temp Pulse Resp BP Pulse Ox 98.1 F 81 19 109/60 98 11/05/17 08:21 11/05/17 08:21 11/05/17 08:21 11/05/17 08:21 11/05/17 08:21 Intake and Output: 11/05/17 11/05/17 06:59 18:59 Intake Total 120 Balance 120 - Medications Medications: Current Medications Acetaminophen (Tylenol 325mg Tab) 650 mg PO Q4 PRN PRN Reason: Fever >100.4 F Last Admin: 11/05/17 02:15 Dose: 650 mg Acetaminophen (Tylenol 325mg Tab) 650 mg PO Q4 PRN PRN Reason: Pain, Mild (1-3) Last Admin: 11/03/17 11:21 Dose: 650 mg Benzocaine/Menthol (Cepacol Sore Throat) 1 martín MT Q2H PRN PRN Reason: Sore Throat Last Admin: 11/02/17 02:15 Dose: 1 martín Doxycycline Hyclate 100 mg/ (Sodium Chloride) 100 mls @ 100 mls/hr IVPB Q12 GRACE PRN Reason: Protocol Last Admin: 11/04/17 21:33 Dose: 100 mls/hr Micafungin Sodium 100 mg/ (Sodium Chloride) 100 mls @ 100 mls/hr IV DAILY GRACE PRN Reason: Protocol Stop: 11/12/17 14:16 Last Admin: 11/03/17 16:10 Dose: 100 mls/hr Meropenem 1 gm/ Dextrose 100 mls @ 100 mls/hr IVPB Q8 GRACE PRN Reason: Protocol Stop: 11/12/17 14:01 Methimazole (Tapazole) 30 mg PO DAILY GRACE Last Admin: 11/04/17 10:54 Dose: 30 mg Metoprolol Tartrate (Lopressor) 50 mg PO HS GRACE Last Admin: 11/04/17 21:34 Dose: 50 mg Oxycodone/Acetaminophen (Percocet 5/325 Mg Tab) 1 tab PO Q6H PRN PRN Reason: Pain, moderate (4-7) Stop: 11/06/17 12:22 Last Admin: 11/05/17 03:21 Dose: 1 tab Potassium Chloride (Potassium Chloride Oral Soln) 40 meq PO DAILY GRACE Last Admin: 11/04/17 11:01 Dose: 40 meq - Labs Labs: 11/05/17 05:30 11/05/17 05:30 - Constitutional Appears: Non-toxic, Chronically Ill - Head Exam Head Exam: NORMAL INSPECTION - Neck Exam Neck Exam: absent: Meningismus - Respiratory Exam Respiratory Exam: Decreased Breath Sounds. absent: Rales - Cardiovascular Exam Cardiovascular Exam: +S1, +S2 - GI/Abdominal Exam GI & Abdominal Exam: Soft. absent: Tenderness Assessment and Plan - Assessment and Plan (Free Text) Plan: Assessment Severe sepsis with febrile neutropenia from acute tonsillopharyngitis R/O CMV R/ O EBV R/O Influenza; there is also concern for leukemia or lymphoma since patient has borderline hepatosplenomegaly on ultrasound of the abdomen S/P bone marrow biopsy history of thyroid storm / Graves' disease Plan continue Merrem day 6 and Doxycycline; blood cx are negative, CMV antibodies are negative but will get CMV PCR; EBV tests show positive IgG but negative IgM HIV test is negative RPR is negative follow up Quantiferon TB test (but less likely) completed Tamiflu Methimazole may be associated with agranulocytosis, but does not explain hepatosplenomegaly - suggest holding Methimazole for now follow up bone marrow biopsy results will continue to monitor clinically
[2017-11-05 16:49] VITALS: TEMP 98.8
[2017-11-05 18:35] VITALS: BP 115/64; PULSE 109; O2SAT 97
[2017-11-06 00:19] LABS: SOURCE: PLASMA
[2017-11-06 00:36] LABS: TB ANTIGEN MINUS NIL 0.04 IU/mL
--- NOTE | 2017-11-06 22:42 | DS ---
DISCHARGE DIAGNOSES: 1. Pancytopenia. 2. Fever. 3. Generalized lymphadenopathy. 4. Hepatosplenomegaly. HOSPITAL COURSE: Patient was admitted with high fever. Flu serology was positive. EBV serology positive. She was treated with broad-spectrum IV antibiotics, antifungal, and Tamiflu. She defervesced during hospitalization. ID consultation, Dr. Zhu, requested. Bone marrow aspiration biopsy done during the hospitalization. Flow cytometry was negative for acute leukemia. She is being discharged in stable condition. PHYSICAL EXAMINATION ON DISCHARGE: GENERAL: Comfortable in bed, in no acute distress. VITAL SIGNS: Temperature 98, T-max 100.2, oxygen saturation 98% on room air, respiratory rate 15 per minute, blood pressure 110/70. NECK: Lymphadenopathy present bilaterally around 1 cm lymph nodes. CHEST: Air entry present and equal bilaterally. No added sounds. CARDIOVASCULAR: S1, S2 normal. No murmur, no gallop. ABDOMEN: Soft and nontender. Mild hepatosplenomegaly. EXTREMITIES: No edema. SKIN: No petechia, no rash. DISPOSITION: Discharged home. DISCHARGE MEDICATIONS: Levaquin 500 mg p.o. daily for 5 days. FOLLOWUP: Follow up with Dr. Hernandez in 1 week. Follow up with in 1 week. DIET: Regular. CONDITION ON DISCHARGE: Stable. Time spent in preparing discharge and coordinating care, 50 minutes. Brielle Hernandez MD
== END 2017-11-05 19:20 | disposition home or self-care (01) | DRG 897 ==
LOC: ED 17:42 → ERH 19:26 → 2RNO 22:21 → 5RNO 11-05 00:23 → 3RSO 11-05 01:52
PROVIDERS: ADMIT Internal Medicine Medical Oncology; ATTEND Internal Medicine Medical Oncology
PROC: 07DR3ZX Extraction of Iliac Bone Marrow, Percutaneous Approach, Diagnostic (ICD-10-PCS; principal; 2017-11-02)
DX: D61.818 Other pancytopenia (principal); R50.81 Fever presenting with conditions classified elsewhere; B34.9 Viral infection, unspecified; R16.2 Hepatomegaly with splenomegaly, not elsewhere classified; E05.00 Thyrotoxicosis with diffuse goiter without thyrotoxic crisis or storm; H92.03 Otalgia, bilateral; R59.1 Generalized enlarged lymph nodes; J02.9 Acute pharyngitis, unspecified; Z87.891 Personal history of nicotine dependence

== ENCOUNTER 2017-11-19 13:35 | Inpatient (IN) | payer MEDICAID ==
[2017-11-19] MEDS ORDERED: Sodium Chloride 0.9% 1,000 ML IV STA ×2 (14:15→17:13)
--- NOTE | 2017-11-19 14:15 | ED PDOC ---
Arrival/HPI - General Chief Complaint: Abnormal Labs Time Seen by Provider: 11/19/17 13:41 Historian: Patient - History of Present Illness Narrative History of Present Illness (Text): 11/19/17 14:15 A 32 year old female sent into the emergency department by Dr. Hernandez for persistent fevers and increased swelling in lymph nodes of the neck over 2 weeks. Patient reports a temperature of 104.4 last night with fever for last 3 days. She notes taking Tylenol, with mild relief. Patient was admitted 2 weeks ago for fever and neutopenia. She was positive for flu and EBV, had negative bone marrow biopsy, and then was discharged home on Levaquin. Patient denies any nausea, vomiting, abdominal pain, urinary symptoms, chest pain, shortness of breath, cough or any other complaints. Hem/Oncologist: Dr. Hernandez 11/19/17 16:55 Time/Duration: Other (2 weeks) Symptom Course: Unchanged Context: Home Past Medical History - Provider Review Nursing Documentation Reviewed: Yes - Infectious Disease Hx of Infectious Diseases: None - Cardiac Hx Cardiac Disorders: Yes Other/Comment: TACHYCARDIA - Pulmonary Hx Respiratory Disorders: No - Neurological Hx Neurological Disorder: No - HEENT Hx HEENT Disorder: Yes Other/Comment: THROAT INFECTION - Renal Hx Renal Disorder: No - Endocrine/Metabolic Hx Endocrine Disorders: Yes Other/Comment: THYROID STORM, GRAVES - Hematological/Oncological Hx Blood Disorders: Yes Other/Comment: JEIMY GRIFFIN - Integumentary Hx Dermatological Disorder: No - Musculoskeletal/Rheumatological Other/Comment: graves disease - Genitourinary/Gynecological Hx Genitourinary Disorders: No - Psychiatric Hx Psychophysiologic Disorder: No Hx Substance Use: No - Surgical History Hx Section: Yes (2006) - Anesthesia Hx Anesthesia: Yes Hx Anesthesia Reactions: No Hx Malignant Hyperthermia: No - Suicidal Assessment Feels Threatened In Home Enviroment: No Family/Social History - Physician Review Nursing Documentation Reviewed: Yes Family/Social History: No Known Family HX Smoking Status: Former Smoker Hx Alcohol Use: No Hx Substance Use: No Allergies/Home Meds Allergies/Adverse Reactions: Allergies No Known Allergies Allergy (Verified 11/19/17 16:51) Home Medications: Home Meds Medication Instructions Recorded Confirmed Atenolol [Tenormin] 25 mg PO BID 11/19/17 11/19/17 Review of Systems - Physician Review All systems were reviewed & negative as marked: Yes - Review of Systems Constitutional: Fevers ENT: absent: Hearing Changes, TMJ Pain, Voice Changes, Rhinorrhea Respiratory: absent: SOB, Cough Cardiovascular: absent: Chest Pain, WILLIAMSON, Orthopnea, Syncope Gastrointestinal: absent: Abdominal Pain, Constipation, Diarrhea, Nausea, Vomiting Genitourinary Female: absent: Dysuria, Frequency, Hematuria Neurological: absent: Headache, Dizziness, Focal Weakness Hemo/Lymphatic: Other (increased swelling of lymph nodes in the neck) Physical Exam Vital Signs Reviewed: Yes Vital Signs Temp Pulse Resp BP Pulse Ox 11/19/17 16:37 122 H 20 122/74 98 11/19/17 16:22 102.5 F H 11/19/17 13:51 99.2 F 131 H 20 127/73 99 Temperature: Afebrile Blood Pressure: Normal Pulse: Tachycardic Respiratory Rate: Normal Appearance: Positive for: Well-Appearing, Non-Toxic, Comfortable Pain Distress: None Mental Status: Positive for: Alert and Oriented X 3 - Systems Exam Head: Present: Atraumatic, Normocephalic Pupils: Present: PERRL Extroacular Muscles: Present: EOMI Conjunctiva: Present: Normal Mouth: Present: Moist Mucous Membranes Nose (External): Present: Atraumatic Nose (Internal): Present: Normal Inspection Neck: Present: Normal Range of Motion, Lymphadenopathy, Other (tenderness to lymph nodes in neck). No: Meningeal Signs, MIDLINE TENDERNESS Respiratory/Chest: Present: Clear to Auscultation, Good Air Exchange. No: Respiratory Distress, Accessory Muscle Use Cardiovascular: Present: Normal S1, S2, Tachycardic. No: Murmurs Abdomen: Present: Mass/Organomegaly (hepatomegaly, splenomegaly). No: Tenderness, Distention, Peritoneal Signs Upper Extremity: Present: Normal Inspection. No: Cyanosis, Edema Lower Extremity: Present: Normal Inspection. No: Edema Neurological: Present: GCS=15, CN II-XII Intact, Speech Normal Skin: Present: Warm, Dry, Normal Color. No: Rashes Psychiatric: Present: Alert, Oriented x 3, Normal Insight, Normal Concentration Medical Decision Making ED Course and Treatment: 11/19/17 14:15 Impression: A 32 year old female with persistent fevers and increased swelling in lymph nodes of neck. Recent diagnosis of EBV and flu. Persistently febrile and neutropenic Plan: -- Neutropenic precautions -- Labs -- Blood and Urine culture -- Urinalysis -- IV fluids -- tylenol -- broad spectrum antibiotics -- ent/cardiology/id consult - Lab Interpretations Lab Results: 11/19/17 14:55 11/19/17 14:55 Lab Results 11/19/17 14:55: Sodium 137, Potassium 4.3, Chloride 101, Carbon Dioxide 25, Anion Gap 16, BUN 14, Creatinine 0.5 L, Est GFR ( Amer) > 60, Est GFR ( Non-Af Amer) > 60, Random Glucose 129 H, Calcium 10.3, Phosphorus 4.9 H, Magnesium 2.1, Total Bilirubin 0.3, AST 39 H D, ALT 49, Alkaline Phosphatase 150 H D, Total Protein 8.0, Albumin 3.5, Globulin 4.5, Albumin/Globulin Ratio 0.8 L 11/19/17 14:55: Urine Color Yellow, Urine Appearance Clear, Urine pH 6.0, Ur Specific Pierron 1.025, Urine Protein 30 H, Urine Glucose (UA) Negative, Urine Ketones Negative, Urine Blood Negative, Urine Nitrate Negative, Urine Bilirubin Negative, Urine Urobilinogen 0.2, Ur Leukocyte Esterase Negative, Urine RBC 0 - 2, Urine WBC 1 - 3, Ur Epithelial Cells 3 - 4, Amorphous Sediment Few, Urine Bacteria Many 11/19/17 14:55: WBC 0.8 L* D, RBC 3.27 L, Hgb 8.4 L, Hct 25.4 L, MCV 77.7 L, MCH 25.7, MCHC 33.1, RDW 14.7 H, Plt Count 113 L, MPV 9.4, Gran % 0.0 L, Lymph % (Auto) 98.7 H, [place] % (Auto) 1.3, Eos % (Auto) 0.0 L, Baso % (Auto) 0.0, Gran # 0.00 L, Lymph # (Auto) 0.8 L, [place] # (Auto) 0.0 L, Eos # (Auto) 0.0, Baso # ( Auto) 0.00, Neutrophils % (Manual) TEST NOT PERFORMED, Lymphocytes % (Manual) 100 H, Monocytes % (Manual) TEST NOT PERFORMED, Platelet Evaluation Low I have reviewed the lab results: Yes - Medication Orders Current Medication Orders: Vancomycin HCl (Vancomycin 1gm) 1 gm in 250 mls @ 167 mls/hr IVPB STAT STA PRN Reason: Protocol Stop: 11/19/17 18:39 Piperacillin Sod/Tazobactam Sod (Zosyn 3.375 In Ns 100ml) 100 mls @ 200 mls/hr IVPB STAT STA PRN Reason: Protocol Stop: 11/19/17 17:39 Discontinued Medications Acetaminophen (Tylenol 325mg Tab) 650 mg PO STAT STA Stop: 11/19/17 16:24 Last Admin: 11/19/17 16:32 Dose: 650 mg MAR Pain/Vitals Document 11/19/17 16:32 [facility] (Rec: 11/19/17 16:35 [facility] [id number]) Pain Reassessment Is This A Pain ReAssessment? No Sodium Chloride (Sodium Chloride 0.9%) 1,000 mls @ 999 mls/hr IV .Q1H1M STA Stop: 11/19/17 15:15 Last Admin: 11/19/17 14:58 Dose: 999 mls/hr eMAR Start Stop Document 11/19/17 14:58 [facility] (Rec: 11/19/17 14:58 [facility] [id number]) Intravenous Solution Start Date 11/19/17 Start Time 14:58 End Date 11/19/17 End time 15:58 Total Infusion Time 60 Morphine Sulfate (Morphine) 5 mg IVP STAT STA Stop: 11/19/17 16:01 Last Admin: 11/19/17 16:21 Dose: 5 mg IVP Administration Document 11/19/17 16:21 [facility] (Rec: 11/19/17 16:24 [facility] [id number]) Charges for Administration # of IVP Administrations 1 - Scribe Statement The provider has reviewed the documentation as recorded by the Scribe Rita Matamoros Provider Scribe Attestation: All medical record entries made by the Scribe were at my direction and personally dictated by me. I have reviewed the chart and agree that the record accurately reflects my personal performance of the history, physical exam, medical decision making, and the department course for this patient. I have also personally directed, reviewed, and agree with the discharge instructions and disposition. Disposition/Present on Arrival - Present on Arrival Any Indicators Present on Arrival: No History of DVT/PE: No History of Uncontrolled Diabetes: No Urinary Catheter: No History of Decub. Ulcer: No History Surgical Site Infection Following: None - Disposition Have Diagnosis and Disposition been Completed?: Yes Diagnosis: Neutropenic fever, Lymphadenopathy, Lymphadenopathy of head and neck Disposition: HOSPITALIZED Disposition Time: 17:13 Isolation: Special Contact (neutropenic) Patient Plan: Admission Condition: FAIR
[2017-11-19 15:13] LABS: URINE BILIRUBIN NEGATIVE (NEGATIVE); URINE BLOOD NEGATIVE (NEGATIVE); URINE GLUCOSE (UA) NEGATIVE (NEGATIVE); URINE LEUKOCYTE ESTERASE NEGATIVE Leu/uL (NEGATIVE); URINE PROTEIN 30 mg/dL (<30 mg/dL); URINE UROBILINOGEN 0.2 E.U./dL (<1 E.U./dL)
[2017-11-19 15:15] LABS: HEMOGLOBIN 8.4 g/dL (12.0-16.0); LYMPH # 0.8 (1.2-3.4); LYMPH % 98.7 % (22.0-35.0); MEAN CELL VOLUME 77.7 fl (80.0-105.0); MEAN CORPUSCULAR HEMOGLOBIN 25.7 pg (25.0-35.0); MEAN CORPUSCULAR HGB CONC 33.1 g/dl (31.0-37.0); MEAN PLATELET VOLUME 9.4 fl (7.0-11.0); MONO % 1.3 % (1.0-6.0); PLATELET COUNT 113 10^3/uL (120.0-450.0); RBC 3.27 10^6/uL (3.5-6.1); RED CELL DISTRIBUTION WIDTH 14.7 % (11.5-14.5)
[2017-11-19 15:18] LABS: URINE APPEARANCE CLEAR (CLEAR); URINE COLOR YELLOW (YELLOW)
[2017-11-19 15:19] LABS: WHITE BLOOD COUNT 0.8 10^3/ul (4.5-11.0)
[2017-11-19 15:23] LABS: URINE BACTERIA MANY (NEG); URINE RBC 0 - 2 /hpf (0-2)
[2017-11-19 15:24] LABS: URINE AMORPHOUS SEDIMENT FEW
[2017-11-19 15:33] LABS: ALB/GLOB RATIO 0.8 (1.1-1.8); ALBUMIN 3.5 g/dL (3.0-4.8); ALT/SGPT 49 U/L (7-56); AST/SGOT 39 U/L (14-36); BLOOD UREA NITROGEN 14 mg/dL (7-21); CALCIUM 10.3 mg/dL (8.4-10.5); GFR AFRICAN-AMERICAN > 60; GFR NON-AFRICAN AMERICAN > 60
[2017-11-19 15:56] LABS: LYMPHOCYTE 100 % (22.0-35.0); PLATELET ESTIMATE LOW (NORMAL)
[2017-11-19] MEDS ORDERED: Morphine 5 MG/ML SYRINGE IVP STA (16:00)
[2017-11-19] MEDS ORDERED: Vancomycin 1gm in NS 250ml 1 GM/250 ML BAG IVPB STA (17:10)
[2017-11-19] MEDS ORDERED: Piperacillin/Tazobact 3.375 gm 100 ML IVPB STA (17:10)
--- NOTE | 2017-11-19 17:45 | RAD ---
HISTORY: Fever COMPARISON: 10/30/2017. FINDINGS: LUNGS: No active pulmonary disease. PLEURA: No significant pleural effusion identified, no pneumothorax apparent. CARDIOVASCULAR: Normal. OSSEOUS STRUCTURES: No significant abnormalities. VISUALIZED UPPER ABDOMEN: Normal. OTHER FINDINGS: None. IMPRESSION: No active disease. No significant interval change compared to the prior examination(s).
[2017-11-19] MEDS ORDERED: Propranolol 1 mg/mL Inj IV STA (20:09)
[2017-11-19] MEDS: Oxycodone/Acetaminophen 10/325 mg Tab PO PRN (22:12)
[2017-11-19 22:22] VITALS: BMI 18.7
[2017-11-19] MEDS ORDERED: Pneumococcal 23-Valent Vaccine IM ONE (22:23)
[2017-11-19] MEDS: Meropenem IV 1 gm in NS 50 ML IVPB SCH (23:29)
[2017-11-20] MEDS ORDERED: Piperacillin/Tazobact 2.25gm 2.25 GM/100 ML BAG IVPB SCH
--- NOTE | 2017-11-20 00:02 | CP.PCM.HP ---
History of Present Illness - History of Present Illness History of Present Illness: Pt. is a young female , recently discharged from hospital . She had fever, EBV serologies positive, flu positive. Hepatosplenomegaly, cervical lymphadenopathy. Fever resolved. She had pancytopenia with ANC of zero. Bone marrow aspiration and biopsy did not show acute leukemia. It showed paratrabecular lymphocytosis. She is admitted again with high fever. increase in cervical lymphadenopathy. Dysphagia . Present on Admission - Present on Admission Any Indicators Present on Admission: No Review of Systems - Constitutional Constitutional: As Per HPI - EENT Eyes: As Per HPI Nose/Mouth/Throat: As Per HPI - Breasts Breasts: absent: As Per HPI, Change in Shape, Mass, Pain, Nipple Discharge, Nipple Inversion, Skin Changes, Swelling, Other - Cardiovascular Cardiovascular: Rapid Heart Rate - Respiratory Respiratory: As Per HPI - Gastrointestinal Gastrointestinal: absent: As Per HPI, Abdominal Pain, Belching, Bloating, Change in Bowel Habits, Change in Stool Character, Coffee Ground Emesis, Constipation, Cramping, Diarrhea, Dyspepsia, Dysphagia, Early Satiety, Excessive Flatus, Fecal Incontinence, Heartburn, Hematemesis, Hematochezia, Loose Stools, Melena, Nausea, Odynophagia, Temesmus, Vomiting, Other - Genitourinary Genitourinary: absent: As Per HPI, Change in Urinary Stream, Difficulty Urinating, Dysuria, Flank Pain, Hematuria, Pyuria, Nocturia, Urinary Incontinence, Urinary Frequency, Urinary Hesitance, Urinary Urgency, Voiding Freq/Small Amts, Freq UTI, Hx Renal/Bladder Calculi, Hx /Renal Surgery, Bladder Distension, Other - Menstruation Menstruation: absent: As Per HPI, Amenorrhea, Amenorrhea/ Control, Currently Menstual, Cycle <21 Days, Cycle >35 Days, Cycle Variable, Menses 1-7 Days, Menses >/= 8 Days, Menses Variable, Cycle > 4 Weeks Between, No Menses for 6 Months, Heavy Menses, Light Menses, Normal Menses, Spotting Between Cycles , S/P Hysterectomy, Menopausal, Post Menopausal, Premenarche, Abnormal Vaginal Bleeding, Dysmenorrhea, Other - Musculoskeletal Musculoskeletal: absent: As Per HPI, Abnormal Gait, Arthralgias, Atrophy, Back Pain, Deformity, Joint Swelling, Limited Range of Motion, Loss of Height, Muscle Cramps, Muscle Weakness, Myalgias, Neck Pain, Numbness, Radiating Pain into Limb, Stiffness, Tingling, Other - Integumentary Integumentary: absent: As Per HPI, Acne, Alopecia, Bleeding Lesions, Change in Hair, Change in Nails, Change in Pigmentation, Changing Lesions, Dry Skin, Erythema, Furuncle, Hirsutism, Lesions, New Lesions, Non-Healing Lesions, Photosensitivity, Pruritus, Rash, Skin Pain, Skin Ulcer, Sores, Striae, Swelling , Unusual Bruising, Wounds, Jaundice, Other - Neurological Neurological: absent: As Per HPI, Abnormal Gait, Abnormal Hearing, Abnormal Movements, Abnormal Speech, Behavioral Changes, Burning Sensations, Confusion, Convulsions, Disequilibrium, Dizziness, Numbness, Focal Weakness, Frequent Falls , Headaches, Lack of Coordination, Loss of Vision, Memory Loss, Paresthesias, Radicular Pain, Restless Legs, Sensory Deficit, Syncope, Tingling, Tremor, Vertigo, Weakness, Other Visual Disturbances, Other - Psychiatric Psychiatric: absent: As Per HPI, Abnormal Sleep Pattern, Anhedonia, Anxiety, Auditory Hallucinations, Behavioral Changes, Change in Appetite, Change in Libido, Confusion, Depression, Difficulty Concentrating, Hallucinations, Homicidal Ideation, Hopelessness, Irritability, Memory Loss, Mood Swings, Panic Attacks, Paranoia, Suicidal Ideation, Visual Hallucinations, Tactile Hallucinations, Other - Endocrine Endocrine: absent: As Per HPI, Change in Body Appearance, Change in Libido, Cold Intolorance, Deepening of Voice, Excessive Sweating, Fatigue, Flushing, Heat Intolorance, Increase in Ring/Shoe/Hat Size, Palpitations, Polydipsia, Polyphagia, Polyuria, Other - Hematologic/Lymphatic Hematologic: As Per HPI Past Patient History - Infectious Disease Hx of Infectious Diseases: None - Past Social History Smoking Status: Former Smoker - CARDIAC Hx Cardiac Disorders: Yes Other/Comment: TACHYCARDIA - PULMONARY Hx Respiratory Disorders: No - NEUROLOGICAL Hx Neurological Disorder: No - HEENT Hx HEENT Problems: Yes Other/Comment: THROAT INFECTION, lymph node swelling in neck, gums swollen and sensitive, fever sores to mouth, burning throat pain,difficulty swallowing and pain which radiates to both ears. b/l ear throat and sinus pain started 2 wks ago - RENAL Hx Chronic Kidney Disease: No - ENDOCRINE/METABOLIC Hx Endocrine Disorders: Yes Hx Hyperthyroidism: Yes Other/Comment: THYROID STORM, GRAVES - HEMATOLOGICAL/ONCOLOGICAL Hx Blood Disorders: Yes Other/Comment: +karla barre + influenza, fever, neutropenia - INTEGUMENTARY Hx Dermatological Problems: Yes Other/Comment: generalized red raised itchy burning body rash - MUSCULOSKELETAL/RHEUMATOLOGICAL Hx Falls: No - GASTROINTESTINAL Other/Comment: weight loss 35 to 40 lbs in 1 1/2 to 2 months, poor appetite - GENITOURINARY/GYNECOLOGICAL Hx Genitourinary Disorders: No - PSYCHIATRIC Hx Substance Use: No - SURGICAL HISTORY Hx Surgeries: Yes (bone marrow bx, c section 2006) - ANESTHESIA Hx Anesthesia: Yes Hx Anesthesia Reactions: No Hx Malignant Hyperthermia: No Meds Allergies/Adverse Reactions: Allergies Allergy/AdvReac Type Severity Reaction Status Date / Time No Known Allergies Allergy Verified 11/19/17 16:51 Physical Exam - Constitutional Appears: Well - Head Exam Head Exam: ATRAUMATIC, NORMAL INSPECTION, NORMOCEPHALIC - Eye Exam Eye Exam: Normal appearance - ENT Exam ENT Exam: Mucous Membranes Moist, Normal Exam - Neck Exam Neck exam: Positive for: Lymphadenopathy - Respiratory Exam Respiratory Exam: Clear to Auscultation Bilateral, NORMAL BREATHING PATTERN - Cardiovascular Exam Cardiovascular Exam: Tachycardia, REGULAR RHYTHM, +S1, +S2 - GI/Abdominal Exam GI & Abdominal Exam: Normal Bowel Sounds, Organomegaly - Extremities Exam Extremities exam: Positive for: normal inspection - Psychiatric Exam Psychiatric exam: Normal Affect - Skin Skin Exam: Pallor, Warm Results - Vital Signs Recent Vital Signs: Last Vital Signs Temp 102 F H 11/19/17 23:34 Pulse 120 H 11/19/17 23:34 Resp 18 11/19/17 22:06 BP 127/72 11/19/17 22:06 Pulse Ox 99 11/19/17 21:00 - Labs Result Diagrams: 11/19/17 14:55 11/19/17 14:55 Assessment & Plan - Assessment and Plan (Free Text) Assessment: 1. Fever : recent flu serology positive, EBV positive. Hepatosplenomegaly Cervical lymphadenopathy Vanco, Zosyn IV ID consult CT chest abdomen, pelvis tomorrow. IV diflucan , possible candidiasis- dysphagia present. mouth wash QID. 2. lymph node biopsy . ENT consult Dr. Mars requested. 3. pancytopenia : Bone marrow done, no evidence of acute leukemia. 4. Tachycardia : Cardiology consulted. - Date & Time Date: 11/20/17 Time: 19:00
[2017-11-20] MEDS: Sodium Chloride 0.9% 1,000 ML IV SCH ×3 (00:32→21:51)
[2017-11-20] MEDS: Oxycodone/Acetaminophen 10/325 mg Tab PO PRN ×3 (01:59→21:53)
--- NOTE | 2017-11-20 02:46 | CON ---
DATE: 11/19/2017 REASON FOR CONSULTATION: Followup sinus tachycardia, hyperthyroidism, neutropenia, Graves' disease. BRIEF CLINICAL HISTORY: This is a 32-year-old female with past medical history significant for Graves' disease, recently for four weeks was on methimazole, was held it, on Tenormin at home, came with temperature [address] Hernandez's office for past three days, taking Tylenol, but no relief. Recently, patient has a positive flu and recent positive for Lily-Jones virus. Negative bone marrow biopsy. Though patient was neutropenic, was on methimazole earlier. PAST MEDICAL HISTORY: Significant for Graves' disease, was on methimazole and thyroid goiter; atenolol, recently started on propranolol, patient did not take propranolol as of yet; history of recent flu and history of EB virus. SOCIAL HISTORY: Denies smoking. Denies any history of alcohol abuse. One daughter, 11 year old. Single. CURRENT MEDICATIONS: Patient is taking at home atenolol 25 mg daily. REVIEW OF SYSTEMS: As per HPI. PHYSICAL EXAMINATION: As follows: VITAL SIGNS: Temperature 102, heart rate 130, blood pressure 120/74. HEENT: PERRLA. Extraocular muscles intact. NECK: Supple. No carotid bruits or thyromegaly. CHEST: Clear to auscultation. HEART: S1 and S2 regular. ABDOMEN: Soft. EXTREMITIES: Clubbing and cyanosis negative. LABORATORY DATA: Blood workup; WBC 0.8, hemoglobin 8.4, hematocrit 25.4, platelet count 113. Chemistry shows sodium , potassium 4.3, chloride 101, carbon dioxide 25, anion gap of 16, BUN 14, and creatinine 0.5. EKG, sinus tachycardia. IMPRESSION: Pancytopenia, neutropenia, anemia, thrombocytopenia, sinus tachycardia, probably secondary to Graves' disease, most likely these symptoms could be secondary to methimazole. PLAN: We will start low doses of propranolol. Hem/Onc follow up by Dr. Hernandez for neutropenia and pancytopenia. We will get echo to access LV function. Further recommendation depending on hospital course. We will follow with you. We will give IV propranolol and then start p.o. Ilya Tillman MD
[2017-11-20] MEDS: Meropenem IV 1 gm in NS 50 ML IVPB SCH ×3 (06:04→21:51)
[2017-11-20] MEDS ORDERED: Propranolol 1 mg/mL Inj IV STA (06:31)
[2017-11-20 06:48] LABS: GRAN # 0.01 (1.4-6.5); GRAN % 0.8 % (50.0-68.0); HEMOGLOBIN 7.7 g/dL (12.0-16.0); LYMPH # 1.3 (1.2-3.4); LYMPH % 98.5 % (22.0-35.0); MEAN CELL VOLUME 78.2 fl (80.0-105.0); MEAN PLATELET VOLUME 9.4 fl (7.0-11.0); MONO % 0.7 % (1.0-6.0); RBC 3.08 10^6/uL (3.5-6.1); RED CELL DISTRIBUTION WIDTH 15.3 % (11.5-14.5)
[2017-11-20 07:07] LABS: ALB/GLOB RATIO 0.7 (1.1-1.8); ALBUMIN 3.1 g/dL (3.0-4.8); ALT/SGPT 36 U/L (7-56); AST/SGOT 30 U/L (14-36); BLOOD UREA NITROGEN 7 mg/dL (7-21); CALCIUM 10.1 mg/dL (8.4-10.5); GFR AFRICAN-AMERICAN > 60; GFR NON-AFRICAN AMERICAN > 60; HDL CHOLESTEROL 15 mg/dL (29-60)
[2017-11-20 07:16] LABS: WHITE BLOOD COUNT 1.4 10^3/ul (4.5-11.0)
[2017-11-20 07:17] LABS: LDL CHOLESTEROL < 30 mg/dL (0-129)
[2017-11-20] MEDS: Nystatin 100,000 Units/ml Oral Susp 5 ml UD PO SCH ×4 (09:25→21:51)
[2017-11-20] MEDS: Fluconazole IV 200mg/100 ml NS 100 ML IVPB SCH (09:25)
--- NOTE | 2017-11-20 09:32 | CT ---
PROCEDURE: CT Neck, Chest, Abdomen and Pelvis with contrast HISTORY: lymphadenopathy COMPARISON: 11/02/2017 TECHNIQUE: Contrast dose: 150 cc of Omni 350 Radiation dose: Total exam DLP = 454 mGy-cm. This CT exam was performed using one or more of the following dose reduction techniques: Automated exposure control, adjustment of the mA and/or kV according to patient size, and/or use of iterative reconstruction technique. FINDINGS: CT OF THE NECK: PHARYNX: Nasopharynx: There is persistent swelling of the adenoids Oropharnx: There is swelling of the tonsils. The pattern is similar to the prior study Hypopharynx: Unremarkable. LYMPH NODES: Mildly enlarged cervical lymph nodes are seen bilaterally. There is a 15 mm node adjacent to the right submandibular gland. There is a 17 mm left digastric region lymph node. VASCULATURE: Unremarkable. GLANDS: The thyroid is enlarged but homogeneous in density. CERVICAL SPINE: Unremarkable. CT OF THE CHEST: LUNGS: Clear lungs. Visualized airway clear. MEDIASTINUM: Unremarkable thoracic aorta. No aneurysm or dissection. Normal sized heart. Pulmonary arterial truck unremarkable. No vascular congestion. No lymphadenopathy. PLEURA: No pleural fluid. No pneumothorax. BONES: No fracture. No destructive lesion. CT OF THE ABDOMEN AND PELVIS: LIVER: Unremarkable. No mass lesion or ductal dilatation. GALLBLADDER AND BILE DUCTS: There is mild mural thickening and enhancement of the gallbladder. There is a moderate amount of pericholecystic fluid. Findings are suspicious for cholecystitis PANCREAS: Unremarkable. No mass or ductal dilatation. SPLEEN: Unremarkable. No splenomegaly. ADRENALS: Unremarkable. KIDNEYS AND URETERS: Unremarkable. No hydronephrosis or hydroureter. No solid mass lesion. BLADDER: Unremarkable. No mass. REPRODUCTIVE: There is a 4.6 cm fibroid APPENDIX: Normal appendix. STOMACH AND BOWEL: Unremarkable. No obstruction. No mural thickening. PERITONEUM: Unremarkable. No free fluid. No free air. LYMPH NODES: Unremarkable. No enlarged lymph nodes. VASCULATURE: Unremarkable. No aortic aneurysm. BONES: No fracture or focal lesion. OTHER FINDINGS: None. IMPRESSION: There is mild mural thickening and enhancement of the gallbladder. There is a moderate amount of pericholecystic fluid. Findings are suspicious for cholecystitis Persistent swelling of the adenoids and palatine tonsils. Mild cervical adenopathy. Findings are unchanged Enlarged thyroid
--- NOTE | 2017-11-20 11:33 | CP.PCM.CON ---
History of Present Illness - History of Present Illness History of Present Illness: ENT Surgery: Dr James Re: Lymph node biopsy PT is a 32F who was recently diagnosed at the beginning of october with Grave's disease and was started on thiamazole and metoprolol. Pt was on therapy for about 2 weeks when she was subsequently admitted on 10/30/17 for high-grade neutropenic fevers and lymphadenopathy. During that admission pt was found to be EBV and flu + and was treated with anti-biotics, anti-fungals, and tamiflu. During this time pt had bone marrow biopsy which was negative for acute leukemia. Pt defervesced and was discharged in stable condition. Pt states two days ago she began feeling extremely fatigued and lethargic again, laid down to take a nap, and when she awoke was in a "pool of sweat". Her primary doctor instructed her to return to the ED. Work-up on these admission demonstrates relapse of neutropenic fevers as well as increased cervical lymphadenopathy. Pt reports she has been having perfuse sweating daily, and now has developed dysphagia to both solid and liquid foods. "i feel as though my throat is constantly burning". Pt denies any emesis or regurgitation. She does admit to an ~30lb weight loss since july, which she had originally attributed to her new hyperthyroid diagnosis. She continues to have a strong appetite and states "i eat what i want but im still losing weight". PMH: Graves disease PSH: none Review of Systems - Review of Systems All systems: reviewed and no additional remarkable complaints except (as per hpi ) Past Patient History - Infectious Disease Hx of Infectious Diseases: None - Past Social History Smoking Status: Former Smoker - CARDIAC Hx Cardiac Disorders: Yes Other/Comment: TACHYCARDIA - PULMONARY Hx Respiratory Disorders: No - NEUROLOGICAL Hx Neurological Disorder: No - HEENT Hx HEENT Problems: Yes Other/Comment: THROAT INFECTION, lymph node swelling in neck, gums swollen and sensitive, fever sores to mouth, burning throat pain,difficulty swallowing and pain which radiates to both ears. b/l ear throat and sinus pain started 2 wks ago - RENAL Hx Chronic Kidney Disease: No - ENDOCRINE/METABOLIC Hx Endocrine Disorders: Yes Hx Hyperthyroidism: Yes Other/Comment: THYROID STORM, GRAVES - HEMATOLOGICAL/ONCOLOGICAL Hx Blood Disorders: Yes Other/Comment: +karla barre + influenza, fever, neutropenia - INTEGUMENTARY Hx Dermatological Problems: Yes Other/Comment: generalized red raised itchy burning body rash - MUSCULOSKELETAL/RHEUMATOLOGICAL Hx Falls: No - GASTROINTESTINAL Other/Comment: weight loss 35 to 40 lbs in 1 1/2 to 2 months, poor appetite - GENITOURINARY/GYNECOLOGICAL Hx Genitourinary Disorders: No - PSYCHIATRIC Hx Substance Use: No - SURGICAL HISTORY Hx Surgeries: Yes (bone marrow bx, c section 2007) - ANESTHESIA Hx Anesthesia: Yes Hx Anesthesia Reactions: No Hx Malignant Hyperthermia: No Meds Allergies/Adverse Reactions: Allergies Allergy/AdvReac Type Severity Reaction Status Date / Time No Known Allergies Allergy Verified 11/19/17 16:51 - Medications Medications: Current Medications Acetaminophen (Tylenol 325mg Tab) 650 mg PO Q6H PRN PRN Reason: Fever >100.4 F Last Admin: 11/20/17 11:04 Dose: 650 mg Sodium Chloride (Sodium Chloride 0.9%) 1,000 mls @ 80 mls/hr IV .[id number] [facility] Last Admin: 11/20/17 11:02 Dose: 80 mls/hr Meropenem (Merrem Iv 1 Gm Premix) 50 mls @ 100 mls/hr IVPB Q8 [facility] PRN Reason: Protocol Last Admin: 11/20/17 06:04 Dose: 100 mls/hr Fluconazole (Diflucan Iv 200 Mg/100 Ml Ns) 100 mls @ 100 mls/hr IVPB DAILY [facility] PRN Reason: Protocol Last Admin: 11/20/17 09:25 Dose: 100 mls/hr Nystatin (Nystatin Oral Susp) 5 ml PO QID [facility] Last Admin: 11/20/17 09:25 Dose: 5 ml Ondansetron HCl (Zofran Inj) 4 mg IVP TID PRN PRN Reason: Nausea/Vomiting Oxycodone/Acetaminophen (Percocet 10/325 Mg Tab) 1 tab PO Q4H PRN PRN Reason: Pain, moderate (4-7) Last Admin: 11/20/17 01:59 Dose: 1 tab Propranolol HCl (Inderal) 10 mg PO TID [facility] Last Admin: 11/20/17 09:25 Dose: 10 mg Valacyclovir HCl (Valtrex) 500 mg PO DAILY [facility] PRN Reason: Protocol Last Admin: 11/20/17 09:24 Dose: 500 mg Physical Exam - Constitutional Appears: Non-toxic, No Acute Distress - Head Exam Head Exam: NORMOCEPHALIC - Eye Exam Eye Exam: Normal appearance. absent: Scleral icterus Pupil Exam: NORMAL ACCOMODATION, PERRL - ENT Exam ENT Exam: Mucous Membranes Dry - Neck Exam Neck exam: Positive for: Lymphadenopathy (~1.5 cm palpable fluctuant lymph node on origin of left SCM, large 4-5cm lymph node on right submandibular area - both extremely tender to palpation), Tenderness - Respiratory Exam Respiratory Exam: absent: Accessory Muscle Use, Respiratory Distress - Cardiovascular Exam Cardiovascular Exam: REGULAR RHYTHM. absent: Tachycardia - GI/Abdominal Exam GI & Abdominal Exam: Soft. absent: Distended, Firm, Guarding, Tenderness - Extremities Exam Extremities exam: Negative for: pedal edema - Neurological Exam Neurological exam: Alert, Oriented x3 - Psychiatric Exam Psychiatric exam: Normal Affect, Normal Mood - Skin Skin Exam: Normal Color, Warm Results - Vital Signs Recent Vital Signs: Last Vital Signs Temp 101.3 F H 11/20/17 11:13 Pulse 143 H 11/20/17 06:42 Resp 20 11/20/17 06:00 BP 104/53 L 11/20/17 06:42 Pulse Ox 97 11/20/17 06:00 - Labs Result Diagrams: 11/20/17 06:00 11/20/17 06:00 Labs: Laboratory Results - last 24 hr 11/19/17 11/20/17 11/20/17 23:25 06:00 06:00 WBC 1.4 L* D RBC 3.08 L Hgb 7.7 L Hct 24.1 L MCV 78.2 L MCH 25.0 MCHC 32.0 RDW 15.3 H Plt Count 112 L MPV 9.4 Gran % 0.8 L Lymph % (Auto) 98.5 H [place] % (Auto) 0.7 L Eos % (Auto) 0.0 L Baso % (Auto) 0.0 Gran # 0.01 L Lymph # (Auto) 1.3 [place] # (Auto) 0.0 L Eos # (Auto) 0.0 Baso # (Auto) 0.00 Sodium 137 Potassium 4.5 Chloride 101 Carbon Dioxide 25 Anion Gap 15 BUN 7 Creatinine 0.5 L Est GFR ( Amer) > 60 Est GFR (Non-Af Amer) > 60 Random Glucose 81 Calcium 10.1 Phosphorus 5.4 H Magnesium 1.9 Total Bilirubin 0.6 AST 30 ALT 36 Alkaline Phosphatase 136 H Total Protein 7.4 Albumin 3.1 Globulin 4.3 Albumin/Globulin Ratio 0.7 L Triglycerides 95 Cholesterol 61 L LDL Cholesterol Direct < 30 HDL Cholesterol 15 L TSH 3rd Generation Influenza Typ A,B (EIA) Negative for flu a/b 11/20/17 06:00 WBC RBC Hgb Hct MCV MCH MCHC RDW Plt Count MPV Gran % Lymph % (Auto) [place] % (Auto) Eos % (Auto) Baso % (Auto) Gran # Lymph # (Auto) [place] # (Auto) Eos # (Auto) Baso # (Auto) Sodium Potassium Chloride Carbon Dioxide Anion Gap BUN Creatinine Est GFR ( Amer) Est GFR (Non-Af Amer) Random Glucose Calcium Phosphorus Magnesium Total Bilirubin AST ALT Alkaline Phosphatase Total Protein Albumin Globulin Albumin/Globulin Ratio Triglycerides Cholesterol LDL Cholesterol Direct HDL Cholesterol TSH 3rd Generation < 0.02 L Influenza Typ A,B (EIA) Assessment & Plan - Assessment and Plan (Free Text) Assessment: 32F with neutropenic fevers and cervical lymphadenopathy Plan: will plan for ENT scope this afternoon potential open lymph node biopsy this week further recs to follow after attending evaluation d/w Dr Jacob Negron, PGY3 - Date & Time Date: 11/20/17 Time: 11:43
--- NOTE | 2017-11-20 12:09 | CP.PCM.CON ---
History of Present Illness - History of Present Illness History of Present Illness: 32 year old female with PMH of thyroid storm/hyperthyroidism has been following with Dr. Hernandez after she was admitted last month for febrile neutropenia. At that time, she was found to have borderline hepatosplenomegaly and bone marrow biopsy was done which was non-diagnostic. She had been doing well until about 3 days ago when she noted fever, chills and enlarged and painful lymph nodes on the neck. She also has non-specific headache, pain on swallowing, no dysphagia, no rhinorrhea or cough, no chest pain, no SOB, no abdominal pain, no diarrhea, no dysuria. Infectious diseases consult is requested to further evaluate and manage. Review of Systems - Review of Systems All systems: reviewed and no additional remarkable complaints except (as per HPI ) Past Patient History - Infectious Disease Hx of Infectious Diseases: None - Past Social History Smoking Status: Former Smoker - CARDIAC Hx Cardiac Disorders: Yes Other/Comment: TACHYCARDIA - PULMONARY Hx Respiratory Disorders: No - NEUROLOGICAL Hx Neurological Disorder: No - HEENT Hx HEENT Problems: Yes Other/Comment: THROAT INFECTION, lymph node swelling in neck, gums swollen and sensitive, fever sores to mouth, burning throat pain,difficulty swallowing and pain which radiates to both ears. b/l ear throat and sinus pain started 2 wks ago - RENAL Hx Chronic Kidney Disease: No - ENDOCRINE/METABOLIC Hx Endocrine Disorders: Yes Hx Hyperthyroidism: Yes Other/Comment: THYROID STORM, GRAVES - HEMATOLOGICAL/ONCOLOGICAL Hx Blood Disorders: Yes Other/Comment: +karla barre + influenza, fever, neutropenia - INTEGUMENTARY Hx Dermatological Problems: Yes Other/Comment: generalized red raised itchy burning body rash - MUSCULOSKELETAL/RHEUMATOLOGICAL Hx Falls: No - GASTROINTESTINAL Other/Comment: weight loss 35 to 40 lbs in 1 1/2 to 2 months, poor appetite - GENITOURINARY/GYNECOLOGICAL Hx Genitourinary Disorders: No - PSYCHIATRIC Hx Substance Use: No - SURGICAL HISTORY Hx Surgeries: Yes (bone marrow bx, c section 2006) - ANESTHESIA Hx Anesthesia: Yes Hx Anesthesia Reactions: No Hx Malignant Hyperthermia: No Meds Allergies/Adverse Reactions: Allergies Allergy/AdvReac Type Severity Reaction Status Date / Time No Known Allergies Allergy Verified 11/19/17 16:51 - Medications Medications: Current Medications Acetaminophen (Tylenol 325mg Tab) 650 mg PO Q6H PRN PRN Reason: Fever >100.4 F Last Admin: 11/19/17 21:22 Dose: 650 mg Sodium Chloride (Sodium Chloride 0.9%) 1,000 mls @ 80 mls/hr IV .[id number] [facility] Meropenem (Merrem Iv 1 Gm Premix) 50 mls @ 100 mls/hr IVPB Q8 [facility] PRN Reason: Protocol Ondansetron HCl (Zofran Inj) 4 mg IVP TID PRN PRN Reason: Nausea/Vomiting Oxycodone/Acetaminophen (Percocet 10/325 Mg Tab) 1 tab PO Q4H PRN PRN Reason: Pain, moderate (4-7) Last Admin: 11/19/17 22:12 Dose: 1 tab Propranolol HCl (Inderal) 10 mg PO TID [facility] Physical Exam - Constitutional Appears: Chronically Ill - Head Exam Head Exam: NORMAL INSPECTION - ENT Exam ENT Exam: Mucous Membranes Moist - Neck Exam Neck exam: Positive for: Lymphadenopathy (cervical, bilateral, tender, no discharge, no bleeding). Negative for: Meningismus - Respiratory Exam Respiratory Exam: Decreased Breath Sounds. absent: Rales - Cardiovascular Exam Cardiovascular Exam: +S1, +S2 - GI/Abdominal Exam GI & Abdominal Exam: Soft. absent: Tenderness Results - Vital Signs Recent Vital Signs: Last Vital Signs Temp 99.9 F H 11/19/17 22:06 Pulse 127 H 11/19/17 22:06 Resp 18 11/19/17 22:06 BP 127/72 11/19/17 22:06 Pulse Ox 98 11/19/17 18:44 - Labs Result Diagrams: 11/20/17 06:00 11/20/17 06:00 Assessment & Plan - Assessment and Plan (Free Text) Plan: Assessment Severe sepsis with febrile neutropenia source to be determined, R/O intra- abdominal infection, R/O bacteremia - previous admission she also had febrile neutropenia - there is concern for leukemia or lymphoma since patient has borderline hepatosplenomegaly on ultrasound of the abdomen from previous admission and cervical lymphadenopathy currently S/P bone marrow biopsy history of thyroid storm / Graves' disease Plan gave a dose of IV Vancomycin and started Merrem pending blood and urine cx; will check PCT as well patient will need lymph node excisional biopsy to rule out lymphoma will monitor clinically previous admission, Quantiferon TB test was negative, CMV and EBV acute tests were negative (but 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
--- NOTE | 2017-11-20 15:43 | PN ---
DATE: REASON FOR CONSULTATION AND FOLLOWUP: Sinus tachycardia, hyperthyroidism, neutropenia, and Graves disease. SUBJECTIVE: Patient denies any chest pain, shortness of breath, or any palpitations. OBJECTIVE: GENERAL: Not in apparent distress, coming back from echo. VITAL SIGNS: Temperature 100.3, heart rate 122, blood pressure 123/69. HEENT: PERRLA, intact. NECK: Supple. No carotid bruits or thyromegaly. CHEST: Clear to auscultation. HEART: S1 and S2, regular. ABDOMEN: Soft. EXTREMITIES: Clubbing and cyanosis negative. LABORATORY DATA: WBC 1.4, hemoglobin 7.7, hematocrit 24.1, platelet count 112. Chemistry shows sodium 137, potassium 4.5, chloride 101, carbon dioxide 25, anion gap of 15. BUN 7, creatinine 0.7. TSH less than 0.02. IMPRESSION: Graves disease, hyperthyroidism, fever, rule out neutropenic sepsis, pancytopenia, tachycardia, multifactorial secondary to Graves disease as well as neutropenia. RECOMMENDATIONS: Continue low-dose beta-blockers, increase to 20 mg p.o. t.i.d. Follow up Hem/Onc as well as Infectious Disease. Panculture and antibiotics as per ID. We will follow with you. We will review the echo when it is done. Thank you Dr. Hernandez for providing us the opportunity in taking care of patient, Janet Ryder. Ilya Tillman MD
[2017-11-20] MEDS ORDERED: Hydrocerin(120 gm) TOP PRN (18:39)
[2017-11-21] MEDS: Meropenem IV 1 gm in NS 50 ML IVPB SCH ×3 (06:14→21:53)
[2017-11-21 06:23] LABS: HEMOGLOBIN 7.5 g/dL (12.0-16.0); LYMPH # 0.8 (1.2-3.4); LYMPH % 89.4 % (22.0-35.0); MEAN CORPUSCULAR HGB CONC 32.1 g/dl (31.0-37.0); MEAN PLATELET VOLUME 9.8 fl (7.0-11.0); MONO # 0.1 (0.1-0.6); MONO % 10.6 % (1.0-6.0); RED CELL DISTRIBUTION WIDTH 15.2 % (11.5-14.5)
[2017-11-21 06:55] LABS: WHITE BLOOD COUNT 0.9 10^3/ul (4.5-11.0)
[2017-11-21 07:02] LABS: ALB/GLOB RATIO 0.7 (1.1-1.8); ALBUMIN 2.9 g/dL (3.0-4.8); ALT/SGPT 66 U/L (7-56); AMYLASE < 30 U/L (35-125); AST/SGOT 71 U/L (14-36); BLOOD UREA NITROGEN 9 mg/dL (7-21); CALCIUM 9.7 mg/dL (8.4-10.5); GFR AFRICAN-AMERICAN > 60; GFR NON-AFRICAN AMERICAN > 60; LIPASE 13 U/L (23-300)
[2017-11-21] MEDS: Nystatin 100,000 Units/ml Oral Susp 5 ml UD PO SCH ×4 (09:55→21:53)
[2017-11-21] MEDS: Vancomycin 1gm in NS 250ml 1 GM/250 ML BAG IVPB SCH ×2 (09:55→21:00)
[2017-11-21] MEDS: Hydrocerin(120 gm) TOP SCH (10:02)
--- NOTE | 2017-11-21 10:17 | NM ---
PROCEDURE: Nuclear Medicine Hepatobiliary Scan HISTORY: r/o cholecystitis COMPARISON: 11/01/2017 abdominal ultrasound TECHNIQUE: 5.3 mCi of technetium 99m Mebrofenin was administered intravenously. Planar images of the abdomen were obtained at 5 min intervals to 60 mins. Delayed images were also obtained. FINDINGS: LIVER: Timely and homogenous uptake. COMMON BILE DUCT: identified at 5 mins. GALLBLADDER: identified at 5 mins. SMALL BOWEL: Identified at 5 mins. IMPRESSION: Normal Hepatobiliary Scan. The cystic duct is patent.
[2017-11-21] MEDS ORDERED: IMMUNE GLOBULIN IV ONE ×2 (11:12→11:45)
--- NOTE | 2017-11-21 11:29 | CP.PCM.PCO ---
Physician Communication Note - Physician Communication Note Physician Communication Note: Neutropenic sepsis/Rash ?etiology/No GB Infection( +vizHIDA)
[2017-11-21] MEDS ORDERED: IMMUNE GLOBULIN 100 MG/ML IV ONE ×2 (11:30→11:45)
--- NOTE | 2017-11-21 11:41 | CP.PCM.PN ---
Subjective - Date & Time of Evaluation Date of Evaluation: 11/21/17 Time of Evaluation: 11:38 - Subjective Subjective: ENT progress note Patient reports doing well today. She reports fever last night. Denies SOB or difficulty swallowing today. Objective - Vital Signs/Intake and Output Vital Signs (last 24 hours): Temp Pulse Resp BP Pulse Ox 98.9 F 120 H 20 137/77 99 11/21/17 10:14 11/21/17 10:14 11/21/17 06:00 11/21/17 06:00 11/21/17 06:00 Intake and Output: 11/21/17 11/21/17 06:59 18:59 Intake Total 1960 Balance 1960 - Medications Medications: Current Medications Acetaminophen (Tylenol 325mg Tab) 650 mg PO Q6H PRN PRN Reason: Fever >100.4 F Last Admin: 11/21/17 06:16 Dose: 650 mg Al Hydrox/Mg Hydrox/Simethicone 30 ml/Diphenhydramine HCl 75 mg/Lidocaine 30 ml 0 ml PO Q2H PRN PRN Reason: Mouth/Throat Pain Sodium Chloride (Sodium Chloride 0.9%) 1,000 mls @ 80 mls/hr IV .[id number] [facility] Last Admin: 11/20/17 21:51 Dose: 80 mls/hr Meropenem (Merrem Iv 1 Gm Premix) 50 mls @ 100 mls/hr IVPB Q8 [facility] PRN Reason: Protocol Last Admin: 11/21/17 06:14 Dose: 100 mls/hr Fluconazole (Diflucan Iv 200 Mg/100 Ml Ns) 100 mls @ 100 mls/hr IVPB DAILY [facility] PRN Reason: Protocol Last Admin: 11/20/17 09:25 Dose: 100 mls/hr Vancomycin HCl (Vancomycin 1gm) 1 gm in 250 mls @ 167 mls/hr IVPB Q12H [facility] PRN Reason: Protocol Last Admin: 11/21/17 09:55 Dose: 167 mls/hr Immune Globulin (Octagam 10%) 400 mls @ 66.667 mls/hr IV ONCE ONE Stop: 11/21/17 17:29 Multi-Ingredient Cream (Hydrocerin Cream) 1 ea TOP DAILY [facility] Last Admin: 11/21/17 10:02 Dose: 1 unit Nystatin (Nystatin Oral Susp) 5 ml PO QID [facility] Last Admin: 11/21/17 09:55 Dose: 5 ml Ondansetron HCl (Zofran Inj) 4 mg IVP TID PRN PRN Reason: Nausea/Vomiting Oxycodone/Acetaminophen (Percocet 10/325 Mg Tab) 1 tab PO Q4H PRN PRN Reason: Pain, moderate (4-7) Last Admin: 11/20/17 21:53 Dose: 1 tab Propranolol HCl (Inderal) 20 mg PO Q6H [facility] Last Admin: 11/21/17 09:55 Dose: 20 mg Valacyclovir HCl (Valtrex) 500 mg PO DAILY [facility] PRN Reason: Protocol Last Admin: 11/21/17 09:55 Dose: 500 mg - Labs Labs: 11/21/17 06:00 11/21/17 06:00 - Constitutional Appears: Non-toxic, No Acute Distress - Head Exam Head Exam: ATRAUMATIC, NORMOCEPHALIC - ENT Exam ENT Exam: Mucous Membranes Moist Additional comments: lymphadenopathy bilaterally w/ goiter - Respiratory Exam Respiratory Exam: Clear to Ausculation Bilateral, NORMAL BREATHING PATTERN. absent: Respiratory Distress - Cardiovascular Exam Cardiovascular Exam: REGULAR RHYTHM. absent: Tachycardia - GI/Abdominal Exam GI & Abdominal Exam: Soft. absent: Distended, Tenderness Assessment and Plan - Assessment and Plan (Free Text) Assessment: 32 y/o female w/ lymphadenopathy Plan: -plan for OR on Sunday for mass biopsy -NPO pmn -cont medical care per primary team -further recs per attending AKWhite PGY3
[2017-11-21] MEDS: Fluconazole IV 200mg/100 ml NS 100 ML IVPB SCH (11:43)
[2017-11-21] MEDS: Oxycodone/Acetaminophen 10/325 mg Tab PO PRN ×2 (11:43→21:53)
[2017-11-21] MEDS: Sodium Chloride 0.9% 1,000 ML IV SCH ×2 (14:03→23:21)
--- NOTE | 2017-11-21 15:05 | PN ---
DATE: REASON FOR THE CONSULTATION: Followup sinus tachycardia, hyperthyroidism, neutropenia, fever, sepsis, Graves disease. The patient denies any chest pain, shortness of breath, feels palpitation, heart rate was 120, fever 104. Denies any chest pain, shortness of breath, any palpitation. OBJECTIVE GENERAL: Not in any apparent distress, going for HIDA scan. VITAL SIGNS: Temperature 102.4, heart rate 120, blood pressure 137/77. HEENT: PERRLA, intact. NECK: Supple. No carotid bruit. No thyromegaly. CHEST: Clear to auscultation. HEART: S1 and S2 regular. ABDOMEN: Soft. EXTREMITIES: Clubbing and cyanosis negative. LABORATORY DATA: Blood workup as follows; WBC 0.9, hemoglobin , hematocrit 23.4, platelet count 111. Chemistry shows sodium 130, potassium 4.2, chloride 99, carbon dioxide 25, anion gap of 16, BUN 9, creatinine 0.6, TSH 0.02. IMPRESSION: Hyperthyroidism; thyrotoxicosis history; before was told it is euthyroid; pancytopenia; thrombocytopenia; neutropenia; sepsis; rule out neutropenic sepsis. Blood culture 24 hours negative, but the patient is having fever. RECOMMENDATIONS: Follow up ID. Continue antibiotic. We will ask Dr. Valentine Cooper for Endocrinology consult. We will increase propranolol to 20 mg 4 times a day. Thank you, Dr. Hernandez for providing us the opportunity in taking care of the patient, Janet Ryder. Ilya Tillman MD
--- NOTE | 2017-11-21 17:08 | CARD ---
APPROVED REPORT EXAM: Two-dimensional and M-mode echocardiogram with Doppler and color Doppler. INDICATION SINUS TACHYCARDIA 2D DIMENSIONS Left Atrium (2D)2.6 (1.6-4.0cm)IVSd0.9 (0.7-1.1cm) LVDd3.1 (3.9-5.9cm)PWd1.1 (0.7-1.1cm) LVDs2.2 (2.5-4.0cm)FS (%) 27.7 % LVEF (%)55.1 (>50%) M-Mode DIMENSIONS Aortic Root2.40 (2.2-3.7cm)Aortic Cusp Exc.1.40 (1.5-2.0cm) Aortic Valve AoV Peak Xenzuhyf920.0cm/Shaye Peak GR.10mmHg Mitral Valve E/A ratio0.0 TDI E/Lateral E'0.0E/Medial E'0.0 Tricuspid Valve TR Peak [id number] [id number] Peak Gr.64mmHg [id number] LEFT VENTRICLE The left ventricle is normal size. There is normal left ventricular wall thickness. The left ventricular function is normal.EF-55-60% There is normal LV segmental wall motion. There is a flattened septum consistent with right ventricle volume and pressure overload. The left ventricular diastolic function is normal. No left ventricle thrombus noted on this study. There is no ventricular septal defect visualized. There is no left ventricular aneurysm. There is no mass noted in the left ventricle. RIGHT VENTRICLE The right ventricle is severely dilated. There is normal right ventricular wall thickness. Systolic function of RV is moderately reduced. ATRIA The left atrium size is normal. The right atrium is severely dilated. The interatrial septum bows toward left atrium consistent with elevated right atrial pressure. AORTIC VALVE The aortic valve is thickened but opens well. No aortic regurgitation is present. There is no aortic valvular stenosis. There is no aortic valvular vegetation. MITRAL VALVE The mitral valve is thickened but opens well. Mitral regurgitation is trace. There is no mitral valve stenosis. There is no evidence of mitral valve prolapse. TRICUSPID VALVE The tricuspid valve leaflets are thickened , but open well. There is severe tricuspid regurgitation.[id number] mmofhg. There is moderate to severe pulmonary hypertension. There is no tricuspid valve stenosis. There is no tricuspid valve prolapse or vegetation. PULMONIC VALVE The pulmonary valve is normal in structure. There is trace pulmonic valvular regurgitation. There is no pulmonic valvular stenosis. GREAT VESSELS The aortic root is normal in size. The ascending aorta is normal in size. The pulmonary artery is normal. The IVC is normal in size and collapses >50% with inspiration. PERICARDIAL EFFUSION There is no pleural effusion. There is no pericardial effusion. <Conclusion> The left ventricle is normal size. There is normal left ventricular wall thickness. The left ventricular function is normal.EF-55-60% There is normal LV segmental wall motion. There is a flattened septum consistent with right ventricle volume and pressure overload. The right ventricle is severely dilated. Systolic function of RV is moderately reduced. The right atrium is severely dilated. The interatrial septum bows toward left atrium consistent with elevated right atrial pressure. Mitral regurgitation is trace. There is severe tricuspid regurgitation.[id number] mmofhg. There is moderate to severe pulmonary hypertension. The IVC is normal in size and collapses >50% with inspiration. There is no pericardial effusion.
--- NOTE | 2017-11-21 23:50 | PN ---
DATE: 11/21/2017 SUBJECTIVE: She is still having high fever. T-max was 103. She has right lymphadenopathy, thyromegaly; had dysphagia on admission, swallowing has improved slightly. She is on nystatin mouthwash. She is on Diflucan also for presumed mucositis. She is severely pancytopenic, hemoglobin declined to 7 g/dL, but she is not symptomatic. No shortness of breath. Complaining of diarrhea a few times today, watery. REVIEW OF SYSTEMS: As per HPI. Rest of the 12-point review of systems reviewed and negative. PHYSICAL EXAMINATION: VITAL SIGNS: T-max 103, respiratory rate 18 per minute, blood pressure 100/70. HEENT: Pallor positive. NECK: Lymphadenopathy present. CHEST: Air entry present and equal bilaterally. No added sounds. CARDIOVASCULAR: S1 and S2 normal. No murmur. No gallop. ABDOMEN: Soft, nontender. No hepatosplenomegaly. EXTREMITIES: No edema. CENTRAL NERVOUS SYSTEM: Alert and oriented x3. No focal sensory motor deficit. LABORATORY DATA: White count 0.9, hemoglobin 7.5, hematocrit 23.4, platelets 111. Sodium 136, potassium 4.6, creatinine 0.6, alkaline phosphatase 131. MEDICATIONS: Reviewed. ASSESSMENT AND PLAN: 1. Fever. 2. Pancytopenia. 3. Cervical lymphadenopathy. 4. Hepatosplenomegaly. 5. Suspicious for cholecystitis. 6. New onset diarrhea, ? Clostridium difficile colitis. PLAN: I will give her Gammagard 40 gm for prolonged pancytopenia. Cultures have been negative so far. She was EBV positive. She is on broad-spectrum antibiotics as per ID. We will start p.o. vancomycin 250 mg four times a day. She might have C. diff colitis. Evaluated by Surgery for possible cholecystitis, cholecystitis is ruled out, HIDA scan negative. Lymph node biopsy planned for Sunday with Dr. Samano. We will continue to monitor blood count closely. Brielle Hernandez MD [facility]ENTER[facility]key
--- NOTE | 2017-11-22 03:53 | CON ---
DATE: ENDOCRINOLOGY CONSULTATION LOCATION: In room 371. HISTORY OF PRESENT ILLNESS: This is a 32-year-old female with pancytopenia and febrile episode. Now, readmitted for further workup and management, and is also being referred for evaluation of abnormal thyroid function studies. PAST MEDICAL HISTORY: History of hyperthyroidism with the previous thyroid storm and has been followed on the outpatient with her medical doctor, and apparently developed marked febrile neutropenia, and was found also to have concomitant hepatosplenomegaly and cervical adenopathy, but bone marrow biopsy could be nondiagnostic as noted. History of Graves disease with diffuse toxic goiter and again as mentioned has been on medical therapy, but the exact name is not known to the patient at this time and this has to be clarified with her primary physician on the outpatient. FAMILY HISTORY: Positive for hypertension and heart disease. SOCIAL HISTORY: Patient has supportive family. Admits to previous history of smoking. No other illicit drug use. REVIEW OF SYSTEMS: Admits to generalized body weakness with dizziness and lightheadedness, and suboptimal energy level, also admits to marked insomnia and generalized anxiety and restlessness. No chest pain, but admits to palpitation and progressive shortness of breath, especially on exertion. Her oral intake has been variable with nausea, dyspepsia, and odynophagia as noted. Also admits to hyperdefecation and episodic tremulousness on both upper extremities. PHYSICAL EXAMINATION: GENERAL: This is asthenic female, in no apparent distress. VITAL SIGNS: Blood pressure of 140/80, pulse of 110 beats per minute and regular, temperature of 100, respirations 20. Height is 5 feet 4 inches, weight is 120 pounds. HEENT: Head normocephalic. Eyes anicteric with pink conjunctivae. Funduscopy not possible at this time. Ears, nose and throat otherwise normal. NECK: Supple. Thyroid gland shows nodular thyromegaly, which is firm and nontender, and also positive cervical adenopathy. HEART: Hyperdynamic precordium. S1 and S2 is rapid and regular. LUNGS: Clear to auscultation. ABDOMEN: Flat, soft with positive bowel sounds. EXTREMITIES: No peripheral edema. Pulses are +2 bilaterally. LABORATORY DATA: WBC is 0.8, 0.9; with a hemoglobin of 7.5, hematocrit of 23.4, MCV 78, platelets 111. Chemistry showed a BUN of 9, sodium 136, potassium 4.2, chloride 99, CO2 of 25, glucose 88, creatinine 0.6. Her TSH level is less than 0.02. ASSESSMENT: This is a 32-year-old female with Graves disease and overt hyperthyroidism both historically, clinically and biochemically with an underlying diffuse toxic goiter and apparent prior treatment with medical therapy which is yet to be verified, and presenting here with pancytopenia and especially marked neutropenia and with underlying hepatosplenomegaly and cervical adenopathy and undergoing a hematologic and oncologic workup at this time. PLAN OF MANAGEMENT: The biggest concern at this point is because of the marked neutropenia, we cannot really initiate medical therapy with thioureas such as Tapazole or PTU because the most common side effect of this only available medical therapy for hyperthyroidism is dreadful side effect of neutropenia and leukopenia, and which the patient already has at this point in time. We are yet to clarify whether this has been medication induced or related to underlying hematologic malignancy for which is undergoing workup at this point in time. We will obtain thyroid antibodies to confirm and/or indicate the presence of thyroid autoimmunity and will include the thyroid stimulating immunoglobulin and the thyroid peroxidase antibody as ordered. We will obtain a comprehensive thyroid hormonal profile to include a total and free T4 to assess the degree of hyperthyroidism and detailed orders have been given. We will also highly consider a more definitive therapy for hyperthyroidism, which is radioactive iodine ablation following the completion of the hematologic workup and if the aforementioned has excluded and the underlying leukemia and/or lymphoma. In the meantime, we can continue the aggressive measures for beta adrenergic blockade for the management of sinus tachycardia. We also did a thyroid ultrasound to assess the exact dimensions of her thyroid lobe enlargement. We will follow and advise accordingly. We will also consider the initiation of Lugol's solution or potassium iodide solution as a temporizing measure of management for hyperthyroidism since we cannot give Tapazole or PTU medications. We will follow this. Valetnine Cooper MD
[2017-11-22] MEDS: Meropenem IV 1 gm in NS 50 ML IVPB SCH ×3 (05:01→21:07)
[2017-11-22] MEDS: Oxycodone/Acetaminophen 10/325 mg Tab PO PRN ×3 (05:29→21:07)
[2017-11-22 07:07] LABS: GRAN # 0.02 (1.4-6.5); GRAN % 1.8 % (50.0-68.0); LYMPH % 86.6 % (22.0-35.0); MEAN CELL VOLUME 78.1 fl (80.0-105.0); MEAN CORPUSCULAR HEMOGLOBIN 25.4 pg (25.0-35.0); MEAN CORPUSCULAR HGB CONC 32.5 g/dl (31.0-37.0); MEAN PLATELET VOLUME 10.9 fl (7.0-11.0); MONO # 0.1 (0.1-0.6); MONO % 11.6 % (1.0-6.0); RBC 3.15 10^6/uL (3.5-6.1); RED CELL DISTRIBUTION WIDTH 14.9 % (11.5-14.5)
[2017-11-22 07:25] LABS: WHITE BLOOD COUNT 1.1 10^3/ul (4.5-11.0)
[2017-11-22 07:28] LABS: FREE T4 6.85 ng/dL (0.78-2.19); T4 19.1 ug/dL (5.5-11.0)
[2017-11-22 07:35] LABS: BLOOD UREA NITROGEN 11 mg/dL (7-21); CALCIUM 9.9 mg/dL (8.4-10.5); GFR AFRICAN-AMERICAN > 60; GFR NON-AFRICAN AMERICAN > 60
--- NOTE | 2017-11-22 07:54 | CP.PCM.PN ---
Subjective - Date & Time of Evaluation Date of Evaluation: 11/22/17 Time of Evaluation: 07:52 - Subjective Subjective: ENT Surgery Patient see and examined. Pt on contact precaution for neutropenic fever. Fever of 103 over 24hrs. Pt reports feeling better after IVIG therapy. Denies dysphagia, dyspnea. Obtained consent for OR tomorrow Objective - Vital Signs/Intake and Output Vital Signs (last 24 hours): Temp Pulse Resp BP Pulse Ox 100.2 F H 99 H 18 134/80 100 11/22/17 05:25 11/22/17 06:00 11/22/17 05:25 11/22/17 05:25 11/22/17 05:25 Intake and Output: 11/22/17 11/22/17 06:59 18:59 Intake Total 3040 Balance 3040 - Medications Medications: Current Medications Acetaminophen (Tylenol 325mg Tab) 650 mg PO Q6H PRN PRN Reason: Fever >100.4 F Last Admin: 11/21/17 11:43 Dose: 650 mg Al Hydrox/Mg Hydrox/Simethicone 30 ml/Diphenhydramine HCl 75 mg/Lidocaine 30 ml 0 ml PO Q2H PRN PRN Reason: Mouth/Throat Pain Sodium Chloride (Sodium Chloride 0.9%) 1,000 mls @ 80 mls/hr IV .[id number] [facility] Last Admin: 11/21/17 23:21 Dose: Not Given Meropenem (Merrem Iv 1 Gm Premix) 50 mls @ 100 mls/hr IVPB Q8 [facility] PRN Reason: Protocol Last Admin: 11/22/17 05:01 Dose: 100 mls/hr Fluconazole (Diflucan Iv 200 Mg/100 Ml Ns) 100 mls @ 100 mls/hr IVPB DAILY [facility] PRN Reason: Protocol Last Admin: 11/21/17 11:43 Dose: 100 mls/hr Vancomycin HCl (Vancomycin 1gm) 1 gm in 250 mls @ 167 mls/hr IVPB Q12H [facility] PRN Reason: Protocol Last Admin: 11/21/17 21:00 Dose: 167 mls/hr Multi-Ingredient Cream (Hydrocerin Cream) 1 ea TOP DAILY [facility] Last Admin: 11/21/17 10:02 Dose: 1 unit Nystatin (Nystatin Oral Susp) 5 ml PO QID [facility] Last Admin: 04/11/18 21:53 Dose: 5 ml Ondansetron HCl (Zofran Inj) 4 mg IVP TID PRN PRN Reason: Nausea/Vomiting Oxycodone/Acetaminophen (Percocet 10/325 Mg Tab) 1 tab PO Q4H PRN PRN Reason: Pain, moderate (4-7) Last Admin: 11/22/17 05:29 Dose: 1 tab Propranolol HCl (Inderal) 20 mg PO Q6 [facility] Last Admin: 11/22/17 05:00 Dose: 20 mg Valacyclovir HCl (Valtrex) 500 mg PO DAILY [facility] PRN Reason: Protocol Last Admin: 11/21/17 09:55 Dose: 500 mg Vancomycin HCl (Vancocin 25 Mg/Ml (Oral Use)) 250 mg PO QID [facility] PRN Reason: Protocol - Labs Labs: 11/22/17 06:20 11/22/17 06:20 - Constitutional Appears: No Acute Distress - Head Exam Head Exam: ATRAUMATIC, NORMAL INSPECTION, NORMOCEPHALIC - Eye Exam Eye Exam: EOMI, Normal appearance, PERRL Pupil Exam: NORMAL ACCOMODATION, PERRL - Neck Exam Neck Exam: Full ROM, Lymphadenopathy, Tenderness, Thyromegaly. absent: Normal Inspection - Respiratory Exam Respiratory Exam: Clear to Ausculation Bilateral, NORMAL BREATHING PATTERN - Cardiovascular Exam Cardiovascular Exam: REGULAR RHYTHM, +S1, +S2. absent: Murmur - GI/Abdominal Exam GI & Abdominal Exam: Soft, Normal Bowel Sounds. absent: Tenderness - Extremities Exam Extremities Exam: Full ROM, Normal Capillary Refill, Normal Inspection. absent : Joint Swelling, Pedal Edema - Back Exam Back Exam: NORMAL INSPECTION - Neurological Exam Neurological Exam: Alert, Awake, CN II-XII Intact, Normal Gait, Oriented x3 - Psychiatric Exam Psychiatric exam: Normal Affect, Normal Mood - Skin Skin Exam: Dry, Intact, Normal Color, Warm Assessment and Plan - Assessment and Plan (Free Text) Assessment: 32 y/o female w/ cervical lymphadenopathy Plan: -plan for OR on Sunday for mass biopsy -NPO pmn -cont medical care per primary team -further recs per attending
[2017-11-22] MEDS: Fluconazole IV 200mg/100 ml NS 100 ML IVPB SCH (09:00)
[2017-11-22] MEDS: Nystatin 100,000 Units/ml Oral Susp 5 ml UD PO SCH ×4 (09:01→21:07)
[2017-11-22] MEDS: Vancomycin 25 MG/ML PO SCH ×4 (09:04→21:10)
[2017-11-22] MEDS: Hydrocerin(120 gm) TOP SCH (09:12)
[2017-11-22] MEDS: Sodium Chloride 0.9% 1,000 ML IV SCH (09:26)
--- NOTE | 2017-11-22 11:01 | CP.PCM.PN ---
Subjective - Date & Time of Evaluation Date of Evaluation: 11/22/17 Time of Evaluation: 09:55 - Subjective Subjective: Patient is feeling better after the infusion of Immune Globulin yesterday, still with fevers, less pain on swallowing, still with occasional headache. Having loose bowel movements. Objective - Vital Signs/Intake and Output Vital Signs (last 24 hours): Temp Pulse Resp BP Pulse Ox 100.2 F H 99 H 18 134/80 100 11/22/17 05:25 11/22/17 06:00 11/22/17 05:25 11/22/17 05:25 11/22/17 05:25 Intake and Output: 11/22/17 11/22/17 06:59 18:59 Intake Total 3040 Balance 3040 - Medications Medications: Current Medications Acetaminophen (Tylenol 325mg Tab) 650 mg PO Q6H PRN PRN Reason: Fever >100.4 F Last Admin: 11/21/17 11:43 Dose: 650 mg Al Hydrox/Mg Hydrox/Simethicone 30 ml/Diphenhydramine HCl 75 mg/Lidocaine 30 ml 0 ml PO Q2H PRN PRN Reason: Mouth/Throat Pain Sodium Chloride (Sodium Chloride 0.9%) 1,000 mls @ 80 mls/hr IV .[id number] [facility] Last Admin: 11/21/17 23:21 Dose: Not Given Meropenem (Merrem Iv 1 Gm Premix) 50 mls @ 100 mls/hr IVPB Q8 [facility] PRN Reason: Protocol Last Admin: 11/22/17 05:01 Dose: 100 mls/hr Fluconazole (Diflucan Iv 200 Mg/100 Ml Ns) 100 mls @ 100 mls/hr IVPB DAILY [facility] PRN Reason: Protocol Last Admin: 11/21/17 11:43 Dose: 100 mls/hr Multi-Ingredient Cream (Hydrocerin Cream) 1 ea TOP DAILY [facility] Last Admin: 11/21/17 10:02 Dose: 1 unit Nystatin (Nystatin Oral Susp) 5 ml PO QID [facility] Last Admin: 11/21/17 21:53 Dose: 5 ml Ondansetron HCl (Zofran Inj) 4 mg IVP TID PRN PRN Reason: Nausea/Vomiting Oxycodone/Acetaminophen (Percocet 10/325 Mg Tab) 1 tab PO Q4H PRN PRN Reason: Pain, moderate (4-7) Last Admin: 11/22/17 05:29 Dose: 1 tab Propranolol HCl (Inderal) 20 mg PO Q6 [facility] Last Admin: 11/22/17 05:00 Dose: 20 mg Valacyclovir HCl (Valtrex) 500 mg PO DAILY [facility] PRN Reason: Protocol Last Admin: 11/21/17 09:55 Dose: 500 mg Vancomycin HCl (Vancocin 25 Mg/Ml (Oral Use)) 250 mg PO QID [facility] PRN Reason: Protocol - Labs Labs: 11/22/17 06:20 11/22/17 06:20 - Constitutional Appears: Chronically Ill - Head Exam Head Exam: NORMAL INSPECTION - Neck Exam Neck Exam: Lymphadenopathy (cervical, tender). absent: Meningismus - Respiratory Exam Respiratory Exam: Decreased Breath Sounds. absent: Rales - Cardiovascular Exam Cardiovascular Exam: +S1, +S2 - GI/Abdominal Exam GI & Abdominal Exam: Soft. absent: Tenderness Assessment and Plan - Assessment and Plan (Free Text) Plan: Assessment Severe sepsis with febrile neutropenia source to be determined, R/O intra- abdominal infection, R/O bacteremia - previous admission she also had febrile neutropenia - there is concern for leukemia or lymphoma since patient has borderline hepatosplenomegaly on ultrasound of the abdomen from previous admission and cervical lymphadenopathy currently S/P bone marrow biopsy history of thyroid storm / Graves' disease Plan gave a dose of IV Vancomycin and continue Merrem day 3; blood and urine cx are negative patient is for lymph node excisional biopsy to rule out lymphoma tomorrow although less likely, will also get Rickettsia and Erlichia serologies will continue to monitor clinically previous admission, Quantiferon TB test was negative, CMV and EBV acute tests were negative (but 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
--- NOTE | 2017-11-22 11:09 | CP.PCM.PCO ---
Physician Communication Note - Physician Communication Note Physician Communication Note: No GB surgery required-LN Bx Tomorrow
--- NOTE | 2017-11-22 18:28 | PN ---
DATE: REASON FOR THE CONSULTATION AND FOLLOWUP: Sinus tachycardia, hyperthyroidism, neutropenic, fever, sepsis, Graves disease, pulmonary hypertension. SUBJECTIVE: The patient denies any chest pain, shortness of breath, or any palpitation. OBJECTIVE: GENERAL: Not in apparent distress, feels a little better, less tachycardic. VITAL SIGNS: Temperature 101.2, heart rate 90, blood pressure 134/80. HEENT: PERRLA. Extraocular muscles intact. NECK: Supple. No carotid bruits or thyromegaly. CHEST: Clear to auscultation. HEART: S1 and S2, regular. ABDOMEN: Soft. EXTREMITIES: Clubbing and cyanosis negative. LABORATORY DATA: WBC 1.1, hemoglobin 8, hematocrit 24.6, platelet count 118. Chemistry shows sodium 140, potassium 3.5, chloride 103, carbon dioxide 27, anion gap of 13. BUN 11 and creatinine 0.5. TSH 0.02, T4 of 19.1, free T4 of 6.85. IMPRESSION: Hyperthyroidism, Graves disease, thyrotoxicosis, neutropenic, pancytopenia, pulmonary hypertension. The patient had an echocardiography done yesterday that revealed normal left ventricular function, ejection fraction 55% to 60% right ventricle pressure volume overload, severely right ventricle dilated, right ventricle is moderately reduced, right ventricular systolic pressure of 74, trace moderate regurgitation, severe tricuspid regurgitation; neutropenia possibly secondary to versus underlying some hematologic malignancy. Continue endocrine evaluation by Dr. Valentine Cooper. Continue Hematology/Oncology followup. Continue beta-saud, rate is controlled. Continue followup for ENT for possible node biopsy and continue Infectious Disease followup. Etiology of pulmonary hypertension unclear. The patient recently had CT done with no evidence of pulmonary embolism. Not a candidate for anticoagulation for DVT, PVD because of thrombocytopenia and pancytopenia. We will follow with you. Thank you, Dr. Hernandez for providing us the opportunity in taking care of Janet Ryder. Ilya Tillman MD
--- NOTE | 2017-11-23 02:41 | PN ---
DATE: ENDOCRINOLOGY FOLLOWUP NOTE LOCATION: Room 371. SUBJECTIVE: This is a 32-year-old female presenting here with generalized body weakness and supervening tachycardia with concomitant marked neutropenia and currently undergoing hematologic workup at this time and is being followed closely also for metabolic management. Her comprehensive thyroid hormonal profile done today showed a total T4 or thyroxine level of 19.1, which is quite elevated and a free T4 of 6.85 and a TSH of less than 0.02 indicative of overt thyrotoxicosis both historically, clinically, and biochemically as noted thereof. Her latest chemistry shows a BUN of 11, sodium 140, potassium 3.5, chloride 103, CO2 of 27, glucose 98, and creatinine 0.5. So, at this time, we will continue the beta adrenergic blockade as ordered. However, she will need definite management for overt hyperthyroidism with radioactive iodine ablation therapy, which can be done on the outpatient as noted. We cannot, at this point in time, initiate medical therapy with either Tapazole or propylthiouracil as both of these medications can cause marked neutropenia or the so-called agranulocytosis, which is really a contraindication at this point in time to initiate medical therapy with the aforementioned as she already presented here with marked neutropenia as noted with her baseline CBC levels. We will request the pharmacy if they could order a very old conventional medication called Lugol's solution or the so-called potassium iodine solution as a temporizing measure for management of hyperthyroidism, pending the more definitive management as mentioned. We will obtain serial chemistries and supplement accordingly as needed. We will follow this. Valentine Cooper MD
[2017-11-23] MEDS: Meropenem IV 1 gm in NS 50 ML IVPB SCH ×3 (05:18→21:34)
[2017-11-23 05:21] LABS: HEMOGLOBIN 7.5 g/dL (12.0-16.0); LYMPH # 1.2 (1.2-3.4); LYMPH % 79.1 % (22.0-35.0); MEAN CELL VOLUME 77.4 fl (80.0-105.0); MEAN CORPUSCULAR HEMOGLOBIN 25.3 pg (25.0-35.0); MEAN CORPUSCULAR HGB CONC 32.6 g/dl (31.0-37.0); MEAN PLATELET VOLUME 10.8 fl (7.0-11.0); MONO # 0.3 (0.1-0.6); MONO % 20.9 % (1.0-6.0); PLATELET COUNT 144 10^3/uL (120.0-450.0); RBC 2.97 10^6/uL (3.5-6.1); RED CELL DISTRIBUTION WIDTH 14.9 % (11.5-14.5)
[2017-11-23 05:30] LABS: INR 1.56 (0.93-1.08); PARTIAL THROMBOPLASTIN TIME 30.6 Seconds (25.1-36.5); PROTHROMBIN TIME 17.9 SECONDS (9.4-12.5)
[2017-11-23 05:34] LABS: WHITE BLOOD COUNT 1.5 10^3/ul (4.5-11.0)
[2017-11-23 05:41] LABS: ALB/GLOB RATIO 0.7 (1.1-1.8); ALT/SGPT 52 U/L (7-56); AST/SGOT 43 U/L (14-36); BLOOD UREA NITROGEN 8 mg/dL (7-21); CALCIUM 9.6 mg/dL (8.4-10.5); GFR AFRICAN-AMERICAN > 60; GFR NON-AFRICAN AMERICAN > 60
[2017-11-23 06:54] LABS: HYPOCHROMIA 1+; LYMPHOCYTE 87 % (22.0-35.0); MONOCYTE 12 % (1.0-6.0); NEUTROPHIL 1 % (50.0-70.0); PLATELET ESTIMATE NORMAL (NORMAL)
[2017-11-23] MEDS: Fluconazole IV 200mg/100 ml NS 100 ML IVPB SCH (10:00)
[2017-11-23] MEDS: Nystatin 100,000 Units/ml Oral Susp 5 ml UD PO SCH ×4 (10:00→23:10)
[2017-11-23] MEDS: Hydrocerin(120 gm) TOP SCH (10:01)
[2017-11-23] MEDS: Oxycodone/Acetaminophen 10/325 mg Tab PO PRN ×3 (10:02→21:33)
[2017-11-23] MEDS: Vancomycin 25 MG/ML PO SCH ×2 (12:14→15:24)
--- NOTE | 2017-11-23 13:44 | CP.PCM.PN ---
Subjective - Date & Time of Evaluation Date of Evaluation: 11/22/17 Time of Evaluation: 18:00 - Subjective Subjective: Continues to have high fever . Blood cultures negative. Urine cultures negative. received gammagard 40 gm yesterday. Objective - Vital Signs/Intake and Output Vital Signs (last 24 hours): Temp Pulse Resp BP Pulse Ox 98.2 F 98 H 17 117/66 100 11/23/17 12:00 11/23/17 12:00 11/23/17 12:00 11/23/17 12:00 11/23/17 06:00 Intake and Output: 11/23/17 11/23/17 06:59 18:59 Intake Total 760 180 Output Total 1200 Balance -440 180 - Medications Medications: Current Medications Acetaminophen (Tylenol 325mg Tab) 650 mg PO Q6H PRN PRN Reason: Fever >100.4 F Last Admin: 11/23/17 05:18 Dose: 650 mg Al Hydrox/Mg Hydrox/Simethicone 30 ml/Diphenhydramine HCl 75 mg/Lidocaine 30 ml 0 ml PO Q2H PRN PRN Reason: Mouth/Throat Pain Diphenhydramine HCl (Benadryl) 25 mg PO BID PRN PRN Reason: Itching / Pruritus Last Admin: 11/22/17 23:04 Dose: 25 mg Meropenem (Merrem Iv 1 Gm Premix) 50 mls @ 100 mls/hr IVPB Q8 [facility] PRN Reason: Protocol Last Admin: 11/23/17 05:18 Dose: 100 mls/hr Fluconazole (Diflucan Iv 200 Mg/100 Ml Ns) 100 mls @ 100 mls/hr IVPB DAILY [facility] PRN Reason: Protocol Last Admin: 11/23/17 10:00 Dose: 100 mls/hr Methylprednisolone (Solu-Medrol) 30 mg IVP DAILY [facility] Multi-Ingredient Cream (Hydrocerin Cream) 1 ea TOP DAILY [facility] Last Admin: 11/23/17 10:01 Dose: 1 unit Nystatin (Nystatin Oral Susp) 5 ml PO QID [facility] Last Admin: 11/23/17 10:00 Dose: 5 ml Ondansetron HCl (Zofran Inj) 4 mg IVP TID PRN PRN Reason: Nausea/Vomiting Oxycodone/Acetaminophen (Percocet 10/325 Mg Tab) 1 tab PO Q4H PRN PRN Reason: Pain, moderate (4-7) Last Admin: 11/23/17 10:02 Dose: 1 tab Propranolol HCl (Inderal) 20 mg PO Q6 [facility] Last Admin: 11/23/17 05:17 Dose: 20 mg Vancomycin HCl (Vancocin 25 Mg/Ml (Oral Use)) 250 mg PO QID [facility] PRN Reason: Protocol Last Admin: 11/23/17 12:14 Dose: 250 mg - Labs Labs: 11/23/17 04:35 11/23/17 04:35 PT 17.9 SECONDS (9.4-12.5) H 11/23/17 04:35 INR 1.56 (0.93-1.08) H 11/23/17 04:35 APTT 30.6 Seconds (25.1-36.5) 11/23/17 04:35 - Constitutional Appears: Well - Head Exam Head Exam: ATRAUMATIC, NORMAL INSPECTION, NORMOCEPHALIC - Eye Exam Eye Exam: Normal appearance Pupil Exam: NORMAL ACCOMODATION - ENT Exam ENT Exam: Mucous Membranes Moist, Normal Exam - Neck Exam Neck Exam: Lymphadenopathy, Thyromegaly - Respiratory Exam Respiratory Exam: Clear to Ausculation Bilateral, NORMAL BREATHING PATTERN - Cardiovascular Exam Cardiovascular Exam: REGULAR RHYTHM, +S1, +S2 - GI/Abdominal Exam GI & Abdominal Exam: Soft, Normal Bowel Sounds, Organomegaly - Rectal Exam Rectal Exam: Bloody Stool - Extremities Exam Extremities Exam: Normal Inspection - Back Exam Back Exam: NORMAL INSPECTION - Neurological Exam Neurological Exam: Alert, Awake, Oriented x3 - Psychiatric Exam Psychiatric exam: Normal Affect - Skin Skin Exam: Normal Color, Warm Assessment and Plan - Assessment and Plan (Free Text) Assessment: 1. High fever : on broad spectrum antibiotics as per ID. Continue diflucan for mucositis. 2. Diarrhea : Po vanco , c-diff to be sent. 3. Pancytopenia : slight increase in WC. Lymph node biopsy planned for tomorrow r/o lymphoma. Bone marrow no acute leuk, lymphoma could not be ruled out. 4. Hyperthyroidism : Consult Dr. Kenneth ferraro. 5. Tachycardia : cardiology following. on inderal tid. 6. Will consider short course of steroids for fever possibly associated with hyperthyroidism / autoimmune phenomena. fever work is negative so far.
--- NOTE | 2017-11-23 14:03 | PN ---
DATE: 11/23/2017 REASON FOR THE CONSULTATION AND FOLLOWUP: Sinus tachycardia, hyperthyroidism, neutropenic fever, sepsis, Graves disease, pulmonary hypertension. SUBJECTIVE: The patient denies any chest pain, shortness of breath, or any palpitations. PHYSICAL EXAMINATION: GENERAL: Not in apparent distress, lying flat on the bed. Significant other is in the room. VITAL SIGNS: Temperature 100.3, heart rate 108, blood pressure 130/78. HEENT: PERRLA. Extraocular muscles intact. NECK: Supple. No carotid bruits or thyromegaly. CHEST: Clear to auscultation. HEART: S1 and S2, regular. ABDOMEN: Soft. EXTREMITIES: Clubbing and cyanosis negative. LABORATORY DATA: Blood workup as follows: WBC 1.5, hemoglobin 7.5, hematocrit 23, platelet count 144. Chemistry shows sodium 130, potassium 3.8, chloride 99, carbon dioxide 28, anion gap of 15, BUN 8, and creatinine 0.5. TSH 0.02, free T4 of 6.8, and T4 of 19.1. IMPRESSION: Hyperthyroidism; thyrotoxicosis; pancytopenia; was on propylthiouracil; tachycardia; anemia; neutropenia, rule out neutropenic sepsis; fever; tachycardia, multifactorial secondary to fever as well as anemia, on beta-saud; pulmonary hypertension; normal left ventricular function. So far, blood cultures are negative. RECOMMENDATIONS: Continue beta-saud. Continue antibiotics as per ID. Hem/Onc as well as Endocrine followup. The patient may get benefit for probably iodine ablation for thyroid because of hard to manage on propylthiouracil because of the pancytopenia. Discussed with the patient in terms of pulmonary hypertension. Once the patient is stabilized, fever everything subside, consider coronary/cardiac CT to rule out etiology of pulmonary hypertension and to rule out any septal defect versus PANTERA as an outpatient. Discussed in length with the patient explaining the above. We will follow with you. Thank you, Dr. Hernandez, for providing us the opportunity in taking care of the patient, Janet Ryder. Ilya Tillman MD
[2017-11-23] MEDS: MethylPREDNISolone 40 mg Vial IVP SCH (15:11)
--- NOTE | 2017-11-23 17:46 | CP.PCM.PN ---
Subjective - Date & Time of Evaluation Date of Evaluation: 11/23/17 Time of Evaluation: 09:55 - Subjective Subjective: Patient continues to have fevers, diarrhea improving, still with sore throat but a little less. Still awaiting biopsy of cervical lymph nodes. Objective - Vital Signs/Intake and Output Vital Signs (last 24 hours): Temp Pulse Resp BP Pulse Ox 103.3 F H 108 H 20 130/78 100 11/23/17 06:00 11/23/17 06:00 11/23/17 06:00 11/23/17 06:00 11/23/17 06:00 Intake and Output: 11/23/17 11/23/17 06:59 18:59 Intake Total 760 180 Output Total 1200 Balance -440 180 - Medications Medications: Current Medications Acetaminophen (Tylenol 325mg Tab) 650 mg PO Q6H PRN PRN Reason: Fever >100.4 F Last Admin: 11/23/17 05:18 Dose: 650 mg Al Hydrox/Mg Hydrox/Simethicone 30 ml/Diphenhydramine HCl 75 mg/Lidocaine 30 ml 0 ml PO Q2H PRN PRN Reason: Mouth/Throat Pain Diphenhydramine HCl (Benadryl) 25 mg PO BID PRN PRN Reason: Itching / Pruritus Last Admin: 11/22/17 23:04 Dose: 25 mg Meropenem (Merrem Iv 1 Gm Premix) 50 mls @ 100 mls/hr IVPB Q8 [facility] PRN Reason: Protocol Last Admin: 11/23/17 05:18 Dose: 100 mls/hr Fluconazole (Diflucan Iv 200 Mg/100 Ml Ns) 100 mls @ 100 mls/hr IVPB DAILY [facility] PRN Reason: Protocol Last Admin: 11/22/17 09:00 Dose: 100 mls/hr Multi-Ingredient Cream (Hydrocerin Cream) 1 ea TOP DAILY [facility] Last Admin: 11/22/17 09:12 Dose: 1 unit Nystatin (Nystatin Oral Susp) 5 ml PO QID [facility] Last Admin: 11/22/17 21:07 Dose: 5 ml Ondansetron HCl (Zofran Inj) 4 mg IVP TID PRN PRN Reason: Nausea/Vomiting Oxycodone/Acetaminophen (Percocet 10/325 Mg Tab) 1 tab PO Q4H PRN PRN Reason: Pain, moderate (4-7) Last Admin: 11/22/17 21:07 Dose: 1 tab Propranolol HCl (Inderal) 20 mg PO Q6 [facility] Last Admin: 11/23/17 05:17 Dose: 20 mg Vancomycin HCl (Vancocin 25 Mg/Ml (Oral Use)) 250 mg PO QID [facility] PRN Reason: Protocol Last Admin: 11/22/17 21:10 Dose: 250 mg - Labs Labs: 11/23/17 04:35 11/23/17 04:35 PT 17.9 SECONDS (9.4-12.5) H 11/23/17 04:35 INR 1.56 (0.93-1.08) H 11/23/17 04:35 APTT 30.6 Seconds (25.1-36.5) 11/23/17 04:35 - Constitutional Appears: Chronically Ill - Head Exam Head Exam: NORMAL INSPECTION - ENT Exam ENT Exam: Mucous Membranes Moist - Neck Exam Neck Exam: absent: Meningismus - Respiratory Exam Respiratory Exam: Decreased Breath Sounds - Cardiovascular Exam Cardiovascular Exam: +S1, +S2 - GI/Abdominal Exam GI & Abdominal Exam: Soft. absent: Tenderness Assessment and Plan - Assessment and Plan (Free Text) Plan: Assessment Severe sepsis with febrile neutropenia - previous admission she also had febrile neutropenia - there is concern for leukemia or lymphoma since patient has borderline hepatosplenomegaly on ultrasound of the abdomen from previous admission and cervical lymphadenopathy currently S/P bone marrow biopsy history of thyroid storm / currently with Graves' disease Plan continue Merrem day 4; blood and urine cx are negative patient is for lymph node excisional biopsy to rule out lymphoma although less likely, follow up Rickettsia and Erlichia serologies currently off Methimazole because of neutropenia - Endocrinology following and will be treating her hyperthyroidism with other meds will continue to monitor clinically on previous admission, Quantiferon TB test was negative, CMV and EBV acute tests were negative (but 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
[2017-11-23] MEDS: Aluminum Hydroxide/Magnesium 30 ML, DiphenhydrAMINE 75 MG, Lidocaine 2% Viscous 30 ML PO PRN (21:34)
--- NOTE | 2017-11-23 22:21 | PN ---
ENDOCRINOLOGY FOLLOWUP LOCATION: Room 371. SUBJECTIVE: This is a 32-year-old female presenting here with marked febrile episodes and also marked neutropenia with underlying anemia and thrombocytopenia and currently undergoing oncologic workup at this time because of concomitant cervical adenopathy with underlying hepatosplenomegaly. However, she also has very marked thyrotoxicosis with a total T4 of 19.1 mcg/dL with a TSH of less than 0.02 and a free T4 of 6.85. Her latest chemistry showed a BUN of 8, sodium 138, potassium 3.8, chloride 99, CO2 of 28, glucose 89 and creatinine 0.5. With the underlying marked neutropenia, the two important therapeutic modalities per medical therapy, i.e., Tapazole and PTU medications have already as per main adverse effect marked leukopenia or agranulocytosis. However, we do not have enough pharmacy or drug formulary potassium iodide and this was requested from the inpatient pharmacies, but they could not have it available. As this is a very old medication, this is no longer manufactured at this time. Radioactive iodine ablation is the most definitive therapy at this time, but we cannot give it because of the ongoing oncologic workup and also because of the marked hyperthyroidism, which may precipitate or trigger thyroid storm as noted. So we are left with really no therapeutic options available, so we may have to try tomorrow morning the initiation of Tapazole given as 10 mg b.i.d. and we will observe her hematologic and clinical response thereof. We will start with Tapazole given as 10 mg b.i.d. and we will titrate incrementally as indicated to optimize metabolic control. We will follow this. Valentine Cooper MD
[2017-11-23 22:35] LABS: SOURCE: PLASMA
[2017-11-24] MEDS: Meropenem IV 1 gm in NS 50 ML IVPB SCH ×3 (05:34→22:25)
--- NOTE | 2017-11-24 08:08 | PN ---
DATE: 11/24/2017 SUBJECTIVE: The patient is seen earlier today in room 371, bed 1. She has had an uneventful night. She did not have any fevers yesterday and this morning. PHYSICAL EXAMINATION: VITAL SIGNS: Temperature is 97, blood pressure is 140/80, respiratory rate of 18, heart rate of 94. HEENT: Examination of HEENT unremarkable. NECK: Supple. LUNGS: Have decreased breath sounds. HEART: Normal S1 and S2. ABDOMEN: Soft, nontender. LABORATORY DATA: Laboratory examination reveals a white count of 1.5, hemoglobin of 7.5 and a platelets of 144. Chemistries reveals a BUN of 8, creatinine of 0.8. Urinalysis is noted and serology is noted. Microbiology reveals C. diff antigen and toxin is negative. ASSESSMENT AND PLAN: A 32-year-old female with severe sepsis, febrile neutropenia and concern for leukemia and lymphoma. The patient has borderline hepatosplenomegaly on ultrasound and the history of thyroid storm and Grave's disease, currently on meropenem with blood, urine cultures negative. Awaiting for biopsy and pathology report. We will follow with you. Jerry Mensah MD
[2017-11-24 08:27] LABS: IRON 73 ug/dL (45-180)
[2017-11-24 08:28] LABS: BLOOD UREA NITROGEN 12 mg/dL (7-21); CALCIUM 9.7 mg/dL (8.4-10.5); GFR AFRICAN-AMERICAN > 60; GFR NON-AFRICAN AMERICAN > 60
[2017-11-24 08:31] LABS: BASO # 0.01 K/mm3 (0.0-2.0); BASO % 1.2 % (0.0-3.0); GRAN % 0.1 % (50.0-68.0); HEMOGLOBIN 8.5 g/dL (12.0-16.0); LYMPH # 0.5 (1.2-3.4); LYMPH % 58.5 % (22.0-35.0); MEAN CELL VOLUME 77.6 fl (80.0-105.0); MEAN CORPUSCULAR HEMOGLOBIN 25.4 pg (25.0-35.0); MEAN CORPUSCULAR HGB CONC 32.7 g/dl (31.0-37.0); MEAN PLATELET VOLUME 11.5 fl (7.0-11.0); MONO # 0.3 (0.1-0.6); MONO % 40.2 % (1.0-6.0); RBC 3.35 10^6/uL (3.5-6.1); RED CELL DISTRIBUTION WIDTH 14.9 % (11.5-14.5)
[2017-11-24 08:36] LABS: % IRON SATURATION 36 % (20-55); TOTAL IRON BINDING CAPACITY 206 ug/dL (265-497)
[2017-11-24 08:39] LABS: WHITE BLOOD COUNT 0.8 10^3/ul (4.5-11.0)
[2017-11-24 08:58] LABS: T4 > 24.9 ug/dL (5.5-11.0)
[2017-11-24] MEDS: MethylPREDNISolone 40 mg Vial IVP SCH (09:31)
[2017-11-24] MEDS: Nystatin 100,000 Units/ml Oral Susp 5 ml UD PO SCH ×4 (09:33→22:25)
[2017-11-24] MEDS: Fluconazole IV 200mg/100 ml NS 100 ML IVPB SCH (09:33)
[2017-11-24] MEDS: Hydrocerin(120 gm) TOP SCH (09:39)
--- NOTE | 2017-11-24 10:38 | CP.PCM.PN ---
Subjective - Date & Time of Evaluation Date of Evaluation: 11/24/17 Time of Evaluation: 10:35 - Subjective Subjective: ENT Cervical LN biopsy cancelled yesterday for concern for thyrotoxicosis. No fever over 24hrs. Pain controlled. Tolerating diet Objective - Vital Signs/Intake and Output Vital Signs (last 24 hours): Temp Pulse Resp BP Pulse Ox 97.6 F 82 18 147/81 100 11/24/17 06:00 11/24/17 06:00 11/24/17 06:00 11/24/17 06:00 11/24/17 06:00 Intake and Output: 11/24/17 11/24/17 06:59 18:59 Intake Total 1200 Output Total 0 Balance 1200 - Medications Medications: Current Medications Acetaminophen (Tylenol 325mg Tab) 650 mg PO Q6H PRN PRN Reason: Fever >100.4 F Last Admin: 11/23/17 14:56 Dose: 650 mg Al Hydrox/Mg Hydrox/Simethicone 30 ml/Diphenhydramine HCl 75 mg/Lidocaine 30 ml 0 ml PO Q2H PRN PRN Reason: Mouth/Throat Pain Last Admin: 11/23/17 21:34 Dose: 5 ml Diphenhydramine HCl (Benadryl) 25 mg PO BID PRN PRN Reason: Itching / Pruritus Last Admin: 11/23/17 23:09 Dose: 25 mg Meropenem (Merrem Iv 1 Gm Premix) 50 mls @ 100 mls/hr IVPB Q8 [facility] PRN Reason: Protocol Last Admin: 11/24/17 05:34 Dose: 100 mls/hr Fluconazole (Diflucan Iv 200 Mg/100 Ml Ns) 100 mls @ 100 mls/hr IVPB DAILY [facility] PRN Reason: Protocol Last Admin: 11/24/17 09:33 Dose: 100 mls/hr Methimazole (Tapazole) 10 mg PO BID [facility] Last Admin: 11/24/17 09:33 Dose: 10 mg Methylprednisolone (Solu-Medrol) 30 mg IVP DAILY [facility] Last Admin: 11/24/17 09:31 Dose: 30 mg Multi-Ingredient Cream (Hydrocerin Cream) 1 ea TOP DAILY [facility] Last Admin: 11/24/17 09:39 Dose: 1 applic Nystatin (Nystatin Oral Susp) 5 ml PO QID [facility] Last Admin: 11/24/17 09:33 Dose: 5 ml Ondansetron HCl (Zofran Inj) 4 mg IVP TID PRN PRN Reason: Nausea/Vomiting Oxycodone/Acetaminophen (Percocet 10/325 Mg Tab) 1 tab PO Q4H PRN PRN Reason: Pain, moderate (4-7) Last Admin: 11/23/17 21:33 Dose: 1 tab Propranolol HCl (Inderal) 20 mg PO Q6 [facility] Last Admin: 11/24/17 05:33 Dose: 20 mg - Labs Labs: 11/24/17 07:59 11/24/17 07:59 PT 17.9 SECONDS (9.4-12.5) H 11/23/17 04:35 INR 1.56 (0.93-1.08) H 11/23/17 04:35 APTT 30.6 Seconds (25.1-36.5) 11/23/17 04:35 - Constitutional Appears: No Acute Distress - Head Exam Head Exam: ATRAUMATIC, NORMAL INSPECTION, NORMOCEPHALIC - Eye Exam Eye Exam: EOMI, Normal appearance, PERRL Pupil Exam: NORMAL ACCOMODATION, PERRL - ENT Exam ENT Exam: Mucous Membranes Moist, Normal Exam - Neck Exam Neck Exam: Full ROM, Lymphadenopathy, Tenderness, Thyromegaly. absent: Normal Inspection Additional comments: L neck 2cm cyst. b/l submandibular / cervical lymphadenopathy. - Respiratory Exam Respiratory Exam: Clear to Ausculation Bilateral, NORMAL BREATHING PATTERN - Cardiovascular Exam Cardiovascular Exam: REGULAR RHYTHM, +S1, +S2. absent: Murmur - GI/Abdominal Exam GI & Abdominal Exam: Soft, Normal Bowel Sounds. absent: Tenderness - Extremities Exam Extremities Exam: Full ROM, Normal Capillary Refill, Normal Inspection. absent : Joint Swelling, Pedal Edema - Back Exam Back Exam: NORMAL INSPECTION - Neurological Exam Neurological Exam: Alert, Awake, CN II-XII Intact, Normal Gait, Oriented x3 - Psychiatric Exam Psychiatric exam: Normal Affect, Normal Mood - Skin Skin Exam: Dry, Intact, Normal Color, Warm Assessment and Plan - Assessment and Plan (Free Text) Assessment: Cervical lymphadenopathy, neutropenic fever -Endo on board: On methimazole for thyrotoxicosis -We will await organic extractions technician clearance for LN biopsy -Job Trainer on board -ID on board JAYLYN James
[2017-11-24] MEDS: Oxycodone/Acetaminophen 10/325 mg Tab PO PRN (13:33)
--- NOTE | 2017-11-24 16:19 | PN ---
DATE: ENDOCRINOLOGY FOLLOWUP NOTE LOCATION: Room 371. SUBJECTIVE: This is a 32-year-old female with overt thyrotoxicosis and marked hyperthyroidism both historically, clinically, and biochemically; and is now being followed closely for metabolic management. She also has marked neutropenia most likely related to a granulocytosis, which could be medication-induced as noted. However, because of the tachycardia and the marked hyperadrenergic manifestation and constitutional symptoms with marked weight loss of over 30 pounds and severe sleep disruption with insomnia and mood instability and tremulousness and even marked hyperhidrosis, we have really at this point in time no other therapeutic option available for the patient for the management of hyperthyroidism. I called over local pharmacy here and they could not make available a very old medication called Lugol solution or potassium iodine solution for temporary management of hyperthyroidism. She is currently on IV steroid therapy for the management of marked neutropenia at this point in time and this should also help with the management of hyperthyroidism. Her latest thyroid studies showed T4 of greater than 24.9 with a TSH of less than 0.02. Her thyroid stimulating immunoglobulin level is pending at this time. With her underlying markedly enlarged diffuse toxic goiter and compressive manifestations throughout this admission, will have really no choice but to start on a very low dose of Tapazole given as 10 mg b.i.d. as ordered. We will titrate that as indicated to optimize metabolic control. We will follow very closely . The benefit to risk ratio of the medical therapy for medical management of hyperthyroidism especially with the presence of marked neutropenia have been discussed with the patient at bedside and she clearly understands that therapy is needed for the aforementioned initiation of medical therapy. As her thyroid levels improve, then we can opt for a more definitive therapy for which I would not really suggest especially with large diffuse toxic goiter and a very high potential for future secondary malignancies. So will highly recommend at this time and this was discussed with the patient at length at bedside, the therapy is needed for ultimate and definitive management with surgical resection for a near total thyroidectomy and only then, will she really improve both clinically and metabolically and even hemodynamically as noted. Valentine Cooper MD
--- NOTE | 2017-11-24 17:25 | PN ---
DATE: SUBJECTIVE: The patient is 32 years old, seen and examined, complained of generalized body aches and pains. She states her right-sided neck hurts. Her neck area hurts. Her gums hurt. She has some difficulty sleeping because of the pain. PHYSICAL EXAMINATION: VITAL SIGNS: She is afebrile, pulse 77, respirations 18, blood pressure 157/66. LUNGS: Bilateral good airflow. No rhonchi or crackle. HEART: S1 and S2 audible. ABDOMEN: Soft. Nontender. No rebound. No guarding. NEUROLOGIC: The patient is awake and alert, able to communicate. LABORATORY EXAM: WBC 0.8, hemoglobin 8.5, hematocrit 26, platelet of 163. Chemistry: Sodium 142, potassium 3.7, chloride 101, CO2 of 31, BUN 12, creatinine 0.4, blood sugar of 171. Urinalysis is unremarkable. Her thyroperoxidase level is 31. ASSESSMENT: 1. History of hyperthyroidism. 2. Generalized lymphadenopathy. 3. Pancytopenia. 4. History of hyperthyroidism. 5. History of pulmonary hypertension. 6. Hypertension. PLAN: The patient is on neutropenic isolation. We will maintain that. She is on Diflucan. She is on propranolol 20 mg every 6. She is on meropenem and methylprednisolone. She is also on methimazole. We will continue supportive care. We will renew her Diflucan and meropenem. Follow up CBC and electrolytes. Luis Estrada MD
[2017-11-24] MEDS: Aluminum Hydroxide/Magnesium 30 ML, DiphenhydrAMINE 75 MG, Lidocaine 2% Viscous 30 ML PO PRN (22:26)
[2017-11-25] MEDS: Oxycodone/Acetaminophen 10/325 mg Tab PO PRN ×2 (00:38→10:45)
[2017-11-25] MEDS: Meropenem IV 1 gm in NS 50 ML IVPB SCH ×3 (06:47→21:10)
--- NOTE | 2017-11-25 07:48 | CP.PCM.PN ---
Subjective - Date & Time of Evaluation Date of Evaluation: 11/25/17 Time of Evaluation: 07:44 - Subjective Subjective: ENT No acute events. No fever over 48hrs. Diarrhea resolving. TOlerating diet. C/O sore throat. Pain controlled. Objective - Vital Signs/Intake and Output Vital Signs (last 24 hours): Temp Pulse Resp BP Pulse Ox 97.8 F 79 18 139/75 100 11/25/17 05:30 11/25/17 06:46 11/25/17 05:30 11/25/17 06:46 11/25/17 05:30 Intake and Output: 11/25/17 11/25/17 06:59 18:59 Intake Total 480 Balance 480 - Medications Medications: Current Medications Acetaminophen (Tylenol 325mg Tab) 650 mg PO Q6H PRN PRN Reason: Fever >100.4 F Last Admin: 11/24/17 17:54 Dose: 650 mg Al Hydrox/Mg Hydrox/Simethicone 30 ml/Diphenhydramine HCl 75 mg/Lidocaine 30 ml 0 ml PO Q2H PRN PRN Reason: Mouth/Throat Pain Last Admin: 11/24/17 22:26 Dose: 15 ml Diphenhydramine HCl (Benadryl) 25 mg PO BID PRN PRN Reason: Itching / Pruritus Last Admin: 11/23/17 23:09 Dose: 25 mg Meropenem (Merrem Iv 1 Gm Premix) 50 mls @ 100 mls/hr IVPB Q8 [facility] PRN Reason: Protocol Last Admin: 11/25/17 06:47 Dose: 100 mls/hr Fluconazole (Diflucan Iv 200 Mg/100 Ml Ns) 100 mls @ 100 mls/hr IVPB DAILY [facility] PRN Reason: Protocol Last Admin: 11/24/17 09:33 Dose: 100 mls/hr Methimazole (Tapazole) 10 mg PO BID [facility] Last Admin: 11/24/17 17:48 Dose: 10 mg Methylprednisolone (Solu-Medrol) 30 mg IVP DAILY [facility] Last Admin: 11/24/17 09:31 Dose: 30 mg Multi-Ingredient Cream (Hydrocerin Cream) 1 ea TOP DAILY [facility] Last Admin: 11/24/17 09:39 Dose: 1 applic Nystatin (Nystatin Oral Susp) 5 ml PO QID [facility] Last Admin: 11/24/17 22:25 Dose: 5 ml Ondansetron HCl (Zofran Inj) 4 mg IVP TID PRN PRN Reason: Nausea/Vomiting Oxycodone/Acetaminophen (Percocet 10/325 Mg Tab) 1 tab PO Q4H PRN PRN Reason: Pain, moderate (4-7) Last Admin: 11/25/17 00:38 Dose: 1 tab Propranolol HCl (Inderal) 20 mg PO Q6 [facility] Last Admin: 11/25/17 06:46 Dose: 20 mg - Labs Labs: 11/24/17 07:59 11/24/17 07:59 PT 17.9 SECONDS (9.4-12.5) H 11/23/17 04:35 INR 1.56 (0.93-1.08) H 11/23/17 04:35 APTT 30.6 Seconds (25.1-36.5) 11/23/17 04:35 - Constitutional Appears: No Acute Distress - Head Exam Head Exam: ATRAUMATIC, NORMAL INSPECTION, NORMOCEPHALIC - Eye Exam Eye Exam: EOMI, Normal appearance, PERRL Pupil Exam: NORMAL ACCOMODATION, PERRL - ENT Exam ENT Exam: Mucous Membranes Moist - Neck Exam Neck Exam: Full ROM, Lymphadenopathy, Tenderness, Thyromegaly. absent: Normal Inspection - Respiratory Exam Respiratory Exam: Clear to Ausculation Bilateral, NORMAL BREATHING PATTERN - Cardiovascular Exam Cardiovascular Exam: REGULAR RHYTHM, +S1, +S2. absent: Murmur - GI/Abdominal Exam GI & Abdominal Exam: Soft, Normal Bowel Sounds. absent: Distended, Tenderness - Extremities Exam Extremities Exam: Full ROM, Normal Capillary Refill, Normal Inspection. absent : Joint Swelling, Pedal Edema - Back Exam Back Exam: NORMAL INSPECTION - Neurological Exam Neurological Exam: Alert, Awake, CN II-XII Intact, Normal Gait, Oriented x3 - Psychiatric Exam Psychiatric exam: Normal Affect, Normal Mood - Skin Skin Exam: Dry, Intact, Normal Color, Warm Assessment and Plan - Assessment and Plan (Free Text) Assessment: Cervical lymphadenopathy and goiter -Lehr Tender on board: recommends near total thyroidectomy -We will await for apparel manufacture instructor clearance for LN biopsy and thyroidectomy -Medical management WIll DW Dr. James
[2017-11-25 08:28] LABS: BASO # 0.02 K/mm3 (0.0-2.0); BASO % 0.9 % (0.0-3.0); GRAN # 0.13 (1.4-6.5); GRAN % 5.8 % (50.0-68.0); HEMOGLOBIN 8.7 g/dL (12.0-16.0); LYMPH # 1.2 (1.2-3.4); LYMPH % 54.7 % (22.0-35.0); MEAN CELL VOLUME 77.5 fl (80.0-105.0); MEAN CORPUSCULAR HEMOGLOBIN 25.1 pg (25.0-35.0); MEAN CORPUSCULAR HGB CONC 32.3 g/dl (31.0-37.0); MEAN PLATELET VOLUME 11.6 fl (7.0-11.0); MONO # 0.9 (0.1-0.6); MONO % 38.6 % (1.0-6.0); RBC 3.47 10^6/uL (3.5-6.1); RED CELL DISTRIBUTION WIDTH 15.3 % (11.5-14.5)
[2017-11-25 08:37] LABS: WHITE BLOOD COUNT 2.2 10^3/ul (4.5-11.0)
[2017-11-25 08:50] LABS: ALB/GLOB RATIO 0.8 (1.1-1.8); ALBUMIN 3.6 g/dL (3.0-4.8); ALT/SGPT 70 U/L (7-56); AST/SGOT 60 U/L (14-36); BLOOD UREA NITROGEN 17 mg/dL (7-21); CALCIUM 10.1 mg/dL (8.4-10.5); GFR AFRICAN-AMERICAN > 60; GFR NON-AFRICAN AMERICAN > 60
[2017-11-25] MEDS: Nystatin 100,000 Units/ml Oral Susp 5 ml UD PO SCH ×4 (10:45→21:11)
[2017-11-25] MEDS: MethylPREDNISolone 40 mg Vial IVP SCH (10:45)
[2017-11-25] MEDS: Hydrocerin(120 gm) TOP SCH (10:45)
[2017-11-25] MEDS: Fluconazole IV 200mg/100 ml NS 100 ML IVPB SCH (10:45)
--- NOTE | 2017-11-25 11:18 | PN ---
DATE: 11/25/2017 SUBJECTIVE: The patient is in bed, was seen early this morning in room 371. She is awake and alert, answering questions appropriately. She has not had any fevers. PHYSICAL EXAMINATION VITAL SIGNS: Temperature is 97, blood pressure is 130/70, respiratory rate of 18. HEENT: Unremarkable. NECK: Supple. LUNGS: Have decreased breath sounds. HEART: Normal S1 and S2. ABDOMEN: Soft, nontender. LABORATORY DATA: Reveals a white count of 2.2, hemoglobin of 8, platelets of 207. Chemistries reveals a BUN of 17, creatinine of 0.7, alkaline phosphatase is 158. Urinalysis is noted and immunology is noted. PCR for CMV is negative, influenza is negative. Microbiology reveals the blood cultures are no growth, urine cultures are no growth, the stool for C. diff is negative antigen and toxin. Dr. Arellano's progress note is reviewed from today and Dr. Estrada's progress note from yesterday is reviewed. ASSESSMENT AND PLAN: A 32-year-old with severe sepsis, febrile neutropenia, thyroid storm and Grave's disease and borderline hepatosplenomegaly for possible surgery. Currently on meropenem and fluconazole. The patient appears to be improving in leukocytosis on an upward trend. Jerry Mensah MD
--- NOTE | 2017-11-25 11:45 | PN ---
DATE: SUBJECTIVE: Patient is 32 years old. Seen and examined. Complained of generalized aches and pain. States all the joints hurt. PHYSICAL EXAMINATION VITAL SIGNS: She is afebrile. Pulse 79, respirations 18, blood pressure 139/75. LUNGS: Bilateral fair airflow. No rhonchi or crackle. HEART: S1, S2 audible. ABDOMEN: Soft, nontender. No rebound. No guarding. NEUROLOGIC: She is awake, alert, oriented, communicative. EXTREMITIES: Bilateral legs, no edema. LABORATORY DATA: WBC 2.2, hemoglobin 8.7, hematocrit 26.9, platelets of 207. Chemistry: Sodium 141, potassium 4.7, chloride 102, CO2 27, BUN 17, creatinine 0.4, blood sugar 103, AST 60, ALT 70, alkaline phosphatase is 158. ASSESSMENT 1. Pancytopenia. 2. Thyroiditis. 3. Hyperthyroidism. 4. Generalized lymphadenopathy. 5. History of pulmonary hypertension. PLAN: Currently, the patient is on Diflucan. She is on propranolol 20 mg every 6 hours. She is getting meropenem. She is on small dose of prednisone. We will follow up her CBC and CMP in the morning. Luis Estrada MD
--- NOTE | 2017-11-25 15:13 | PN ---
DATE: ENDOCRINOLOGY FOLLOWUP NOTE LOCATION: Room 371. SUBJECTIVE: This is a 32-year-old female with overt thyrotoxicosis noted both historically, clinically, and biochemically, most likely related to underlying Graves disease with a diffuse toxic goiter, which is quite moderately enlarged as noted and is being followed closely for metabolic management. She also has concomitant marked neutropenia with improving white cell count after the initiation of IV steroid therapy, which is being tapered down to Solu-Medrol of 30 mg IV piggyback daily as given. Her latest WBC is 2.2 with hemoglobin of 8.7, hematocrit of 26, MCV 77, and platelets of 207. Her latest chemistries showed a BUN of 17, sodium 141, potassium 4.7, chloride 102, CO2 of 27, glucose 103, and creatinine 0.4. Her latest thyroid studies showed a T4 of greater than 24.9 with a TSH of less than 0.02. Her thyroid antibodies are pending at this time and we have sent out a thyroid stimulating immunoglobulin and a thyroid peroxidase antibody, which will confirm and/or indicate the presence of thyroid autoimmunity. In the meantime, with no other therapeutic option available at this time, we have courageously put her back on a low dose of medical therapy with thioureas using Tapazole at 10 mg b.i.d. after meals as ordered. The patient will eventually decide in the future for more definitive therapy and we have specially recommended thyroid resection with a near total thyroidectomy as noted. The thyroid ultrasound report was done in September, we do not have it available online. With a moderately enlarged diffuse toxic goiter, it would not be advisable to actually give a radioactive iodine ablation, which will require a large dosing of the iodine therapy as noted which has a potential risk of secondary malignancies in the future as noted. The most possible recommendation would be surgical resection as mentioned. We will obtain serial thyroid studies accordingly. Valentine Cooper MD
[2017-11-26] MEDS: Oxycodone/Acetaminophen 10/325 mg Tab PO PRN ×3 (00:45→22:50)
[2017-11-26] MEDS: Meropenem IV 1 gm in NS 50 ML IVPB SCH ×3 (06:15→22:23)
[2017-11-26 07:24] LABS: BASO # 0.01 K/mm3 (0.0-2.0); BASO % 0.3 % (0.0-3.0); GRAN % 13.2 % (50.0-68.0); HEMOGLOBIN 9.5 g/dL (12.0-16.0); LYMPH # 1.7 (1.2-3.4); LYMPH % 54.5 % (22.0-35.0); MEAN CELL VOLUME 77.4 fl (80.0-105.0); MEAN CORPUSCULAR HEMOGLOBIN 25.3 pg (25.0-35.0); MEAN CORPUSCULAR HGB CONC 32.6 g/dl (31.0-37.0); MEAN PLATELET VOLUME 10.9 fl (7.0-11.0); PLATELET COUNT 267 10^3/uL (120.0-450.0); RBC 3.76 10^6/uL (3.5-6.1); RED CELL DISTRIBUTION WIDTH 15.7 % (11.5-14.5)
[2017-11-26 07:48] LABS: ALB/GLOB RATIO 0.8 (1.1-1.8); ALBUMIN 3.6 g/dL (3.0-4.8); ALT/SGPT 83 U/L (7-56); AST/SGOT 78 U/L (14-36); BLOOD UREA NITROGEN 21 mg/dL (7-21); CALCIUM 10.1 mg/dL (8.4-10.5); GFR AFRICAN-AMERICAN > 60; GFR NON-AFRICAN AMERICAN > 60
[2017-11-26 07:54] LABS: FREE T4 6.07 ng/dL (0.78-2.19)
[2017-11-26 08:12] LABS: T4 > 24.9 ug/dL (5.5-11.0)
[2017-11-26 08:20] LABS: ANISOCYTOSIS SLIGHT; ATYPICAL LYMPHOCYTE 1 % (0.0-0.0); BAND 3 % (0-2); CORRECTED WBC 2.8 K/mm3 (4.5-11.0); HYPOCHROMIA 1+; LARGE PLATELETS PRESENT; LYMPHOCYTE 71 % (22.0-35.0); METAMYELOCYTE 2 %; MICROCYTOSIS 1+; MONOCYTE 12 % (1.0-6.0); NEUTROPHIL 11 % (50.0-70.0); NUCLEATED RED BLOOD CELL 8 %; PLATELET ESTIMATE NORMAL (NORMAL)
[2017-11-26] MEDS: Fluconazole IV 200mg/100 ml NS 100 ML IVPB SCH (09:42)
[2017-11-26] MEDS: Nystatin 100,000 Units/ml Oral Susp 5 ml UD PO SCH ×4 (09:42→22:24)
[2017-11-26] MEDS: MethylPREDNISolone 40 mg Vial IVP SCH (09:42)
[2017-11-26] MEDS: Aluminum Hydroxide/Magnesium 30 ML, DiphenhydrAMINE 75 MG, Lidocaine 2% Viscous 30 ML PO PRN ×2 (09:43→22:52)
[2017-11-26] MEDS: Hydrocerin(120 gm) TOP SCH (09:51)
--- NOTE | 2017-11-26 18:07 | CP.PCM.PN ---
Subjective - Date & Time of Evaluation Date of Evaluation: 11/26/17 Time of Evaluation: 10:30 - Subjective Subjective: No fevers overnight, sore throat is less, swallowing better, less pain along the cervical lymph nodes. No more diarrhea. Objective - Vital Signs/Intake and Output Vital Signs (last 24 hours): Temp Pulse Resp BP Pulse Ox 97.9 F 71 18 133/78 100 11/26/17 06:00 11/26/17 06:14 11/26/17 06:00 11/26/17 06:14 11/26/17 06:00 Intake and Output: 11/26/17 11/26/17 06:59 18:59 Intake Total 680 Balance 680 - Medications Medications: Current Medications Acetaminophen (Tylenol 325mg Tab) 650 mg PO Q6H PRN PRN Reason: Fever >100.4 F Last Admin: 11/25/17 21:11 Dose: 650 mg Al Hydrox/Mg Hydrox/Simethicone 30 ml/Diphenhydramine HCl 75 mg/Lidocaine 30 ml 0 ml PO Q2H PRN PRN Reason: Mouth/Throat Pain Last Admin: 11/24/17 22:26 Dose: 15 ml Diphenhydramine HCl (Benadryl) 25 mg PO BID PRN PRN Reason: Itching / Pruritus Last Admin: 11/25/17 14:19 Dose: 25 mg Meropenem (Merrem Iv 1 Gm Premix) 50 mls @ 100 mls/hr IVPB Q8 [facility] PRN Reason: Protocol Last Admin: 11/26/17 06:15 Dose: 100 mls/hr Fluconazole (Diflucan Iv 200 Mg/100 Ml Ns) 100 mls @ 100 mls/hr IVPB DAILY [facility] PRN Reason: Protocol Last Admin: 11/25/17 10:45 Dose: 100 mls/hr Methimazole (Tapazole) 10 mg PO BID [facility] Last Admin: 11/25/17 17:49 Dose: 10 mg Methylprednisolone (Solu-Medrol) 30 mg IVP DAILY [facility] Last Admin: 11/25/17 10:45 Dose: 30 mg Multi-Ingredient Cream (Hydrocerin Cream) 1 ea TOP DAILY [facility] Last Admin: 11/25/17 10:45 Dose: 1 applic Nystatin (Nystatin Oral Susp) 5 ml PO QID [facility] Last Admin: 11/25/17 21:11 Dose: 5 ml Ondansetron HCl (Zofran Inj) 4 mg IVP TID PRN PRN Reason: Nausea/Vomiting Oxycodone/Acetaminophen (Percocet 10/325 Mg Tab) 1 tab PO Q4H PRN PRN Reason: Pain, moderate (4-7) Last Admin: 11/26/17 00:45 Dose: 1 tab Propranolol HCl (Inderal) 20 mg PO Q6 [facility] Last Admin: 11/26/17 06:14 Dose: 20 mg - Labs Labs: 11/26/17 06:50 11/26/17 06:50 PT 17.9 SECONDS (9.4-12.5) H 11/23/17 04:35 INR 1.56 (0.93-1.08) H 11/23/17 04:35 APTT 30.6 Seconds (25.1-36.5) 11/23/17 04:35 - Constitutional Appears: Chronically Ill - Head Exam Head Exam: NORMAL INSPECTION - Neck Exam Neck Exam: Lymphadenopathy (cervical). absent: Meningismus - Respiratory Exam Respiratory Exam: Decreased Breath Sounds - Cardiovascular Exam Cardiovascular Exam: +S1, +S2 - GI/Abdominal Exam GI & Abdominal Exam: Soft. absent: Tenderness Assessment and Plan - Assessment and Plan (Free Text) Plan: Assessment Severe sepsis with febrile neutropenia - previous admission she also had febrile neutropenia - there is concern for leukemia or lymphoma since patient has borderline hepatosplenomegaly on ultrasound of the abdomen from previous admission and cervical lymphadenopathy currently S/P bone marrow biopsy which was non-diagnostic history of thyroid storm / currently with Graves' disease now back on Tapazole Plan continue Merrem day 7 and Diflucan; blood and urine cx are negative - will continue antibiotics while patient is neutropenic patient is for lymph node excisional biopsy to rule out lymphoma and we are awaiting the procedure patient back on Tapazole but Endocrinology following closely because of the neutropenia will continue to monitor clinically on previous admission, Quantiferon TB test was negative, CMV and EBV acute tests were negative (but 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
[2017-11-26 18:50] LABS: TSI 261 % baseline (<140)
--- NOTE | 2017-11-26 19:52 | PN ---
DATE: 11/26/2017 REASON FOR CONSULTATION : Sinus tachycardia, hyperthyroidism, neutropenic sepsis, Graves disease, pulmonary hypertension. SUBJECTIVE: The patient denies any chest pain, shortness of breath, or any palpitations. Feels a lot better. PHYSICAL EXAMINATION: GENERAL: Not in apparent distress. VITAL SIGNS: Temperature afebrile, heart rate 82, blood pressure 119/66. HEENT: PERRLA. Extraocular muscles intact. NECK: Supple. No carotid bruits or thyromegaly. CHEST: Clear to auscultation. HEART: S1 and S2, regular. ABDOMEN: Soft. EXTREMITIES: Clubbing and cyanosis negative. LABORATORY DATA: WBC 3, hemoglobin 9.5, hematocrit 29.1, platelet count 267. Chemistry shows sodium 140, potassium 4.5, chloride 100, carbon dioxide 31, anion gap of 16, BUN 12, and creatinine 0.9. IMPRESSION: Pancytopenia, improving; neutropenic sepsis; fever, improving; history of Graves disease, was on metamizole, moderately large diffuse goiter, thyroiditis; hyperthyroidism; generalized lymphadenopathy; sinus tachycardia probably secondary to fever as well as under the Graves disease. RECOMMENDATION: Continue low dose beta-saud. Continue broad spectrum antibiotics as per ID. Possible lymph node biopsy. Discussed with the patient once the patient stabilizes, we will do the cardiac CT to rule out etiology of pulmonary hypertension. In the interim, we will follow up with low dose of beta-saud. We will follow. We will change propranolol ER 80 mg from tomorrow. Thank you, Dr. Hernandez, for providing us the opportunity in taking care of the patient, Janet Ryder. Ilya Tillman MD
--- NOTE | 2017-11-26 22:26 | PN ---
DATE: ENDOCRINOLOGY FOLLOWUP NOTE LOCATION: Room 371. SUBJECTIVE: This is a 32-year-old female with recent overt thyrotoxicosis with a little marked hyperthyroidism and has been started on medical therapy with Tapazole given as 10 mg b.i.d. despite the presence of marked neutropenia as noted. She has been given, however, IV steroid therapy with remarkable hematologic improvement of a white cell count as noted. Today's white count is 3 with the hemoglobin of 9.5, hematocrit of 29, MCV 77 and platelets 267. She has started to improve clinically from the metabolic view point and the latest thyroid studies remain quite elevated with the total T4 of greater than 24.9 with the free T4 of 6.07 and a TSH of less than 0.02. So this time because of the marked neutropenia, we are quite to maximize her medical therapies for hyperthyroidism and we will slowly titrate the medication until white count improves accordingly. So we will increase the Tapazole to 10 mg p.o. t.i.d. after meals to start tomorrow morning. We will obtain serial chemistries and supplement accordingly as needed. We will also obtain serial thyroid studies to determine her metabolic response thereof. The plan of care and the current therapeutic options have been discussed with the medical liaison today. We cannot at this point in time clear the patient for thyroid resection because of the very high potential for a thyroid storm with marked tachycardia or even with marked tachyarrhythmia such as atrial fibrillation or flutter especially with any session of general anesthesia. She has to be at least close to euthyroid or at least mildly hyperthyroid by chemically to be able to clear her for definitive management of near total thyroidectomy, which was the ideal modality of treatment for definitive management thereof. We will continue the IV steroids as given and noted. We will obtain serial chemistries and supplement accordingly as needed. We will follow. As mentioned above because of the moderately enlarged underlying diffuse toxic goiter, she really is a very poor candidate for radioactive iodine ablation, which will require a huge dose of the radioiodine, again putting a potential risk for future malignancies at this point in time. Medical therapy would be ideal but this has to be given for very high dose because of the marked hyperthyroidism and because of the supervening neutropenia. We cannot supra-maximize the dose at this point in time. We will follow and advise accordingly. Valentine Cooper MD [facility] # [id number]
[2017-11-27] MEDS: Meropenem IV 1 gm in NS 50 ML IVPB SCH ×3 (06:04→21:56)
[2017-11-27 07:11] LABS: ALB/GLOB RATIO 0.8 (1.1-1.8); ALBUMIN 3.6 g/dL (3.0-4.8); ALT/SGPT 106 U/L (7-56); AST/SGOT 91 U/L (14-36); BLOOD UREA NITROGEN 22 mg/dL (7-21); CALCIUM 9.8 mg/dL (8.4-10.5); GAMMA GLUTAMYL TRANSPEPTIDASE 145 U/L (8-78); GFR AFRICAN-AMERICAN > 60; GFR NON-AFRICAN AMERICAN > 60
[2017-11-27 07:21] LABS: T4 > 24.9 ug/dL (5.5-11.0)
[2017-11-27] MEDS: Fluconazole IV 200mg/100 ml NS 100 ML IVPB SCH (10:03)
[2017-11-27] MEDS: Nystatin 100,000 Units/ml Oral Susp 5 ml UD PO SCH ×4 (10:03→21:57)
[2017-11-27] MEDS: Hydrocerin(120 gm) TOP SCH (10:04)
[2017-11-27] MEDS: Propranolol 80 mg ER Cap PO SCH (10:24)
[2017-11-27] MEDS: Oxycodone/Acetaminophen 10/325 mg Tab PO PRN ×2 (13:03→21:57)
--- NOTE | 2017-11-27 14:19 | PN ---
DATE: 11/27/2017 REASON FOR THE CONSULTATION AND FOLLOWUP: Sinus tachycardia, hyperthyroidism, neutropenic sepsis, Graves disease, pulmonary hypertension. SUBJECTIVE: The patient denies any chest pain, shortness of breath, or any palpitations. Feels better. PHYSICAL EXAMINATION: GENERAL: Not in apparent distress. VITAL SIGNS: Temperature afebrile, heart rate relatively stable at 85, blood pressure 124/79. HEENT: PERRLA. Extraocular muscles intact. NECK: Supple. No carotid bruits or thyromegaly. CHEST: Clear to auscultation. HEART: S1 and S2, regular. ABDOMEN: Soft. EXTREMITIES: Clubbing and cyanosis negative. LABORATORY DATA: WBC 3, hemoglobin 9.5, hematocrit 29.1, granulocytes 13.2%. Chemistry shows sodium 140, potassium 4.9, chloride 100, carbon dioxide 33, anion gap of 13, BUN 22, creatinine 0.5. Influenzae A and B negative. Thyroid peroxidase antibody elevated at 31, normal should be 9. IMPRESSION: Graves disease, acute pancytopenia, neutropenia, thrombocytopenia, anemia, fever, sepsis, enlarged thyroid, sinus tachycardia as well as pulmonary hypertension. RECOMMENDATIONS: Continue propranolol 80 mg daily. The patient started back on Tapazole. Being monitored closely for neutropenia to recur. Discussed with the patient. As outpatient, consider cardiac CT to rule out etiology of pulmonary hypertension. CVS status is relatively stable. If the heart rate remain stable, we will discontinue telemetry by tomorrow. Thank you, Dr. Hernandez, for providing us the opportunity in taking care of the patient, Janet Ryder. Ilya Tillman MD
--- NOTE | 2017-11-27 18:03 | PN ---
DATE: ENDOCRINOLOGY FOLLOWUP NOTE LOCATION: Room 371. SUBJECTIVE: This is a 32-year-old female with overt thyrotoxicosis and presenting here with marked hyperthyroidism both historically, clinically and biochemically and actually now was presented with marked neutropenia with underlying hepatosplenomegaly and cervical adenopathy and currently undergoing hematologic and oncologic workup at this time. Her latest CBC showed a WBC of 3 and the latest chemistry showed a BUN of 22, sodium 140, potassium 4.9, chloride 100, CO2 of 33, glucose 95 and creatinine 0.5. Her latest thyroid study showed T4 greater than 24.9 and the TSH of less than 0.02. So at this time because of the marked neutropenia, we will be very prudent in titrating her dose regimen of the Tapazole accordingly. This family of medications are very prone to precipitate marked neutropenia or agranulocytosis as noted thereof. We will increase Tapazole to 10 mg p.o. t.i.d. after meals, to start today as ordered and we will titrate incrementally as indicated to optimize metabolic control. We will follow and advise accordingly. Valentine Cooper MD
--- NOTE | 2017-11-27 19:21 | PN ---
DATE: 11/27/2017 SUBJECTIVE: The patient was seen earlier this morning in room 371, bed 1. Doing well. She states she is improving. No fevers and no chills. PHYSICAL EXAMINATION VITAL SIGNS: Temperature is 98, blood pressure is 104/50, respiratory rate of 18, heart rate of 110. HEENT: Unremarkable. NECK: Supple. LUNGS: Have decreased breath sounds. HEART: Normal S1 and S2. ABDOMEN: Soft. LABORATORY DATA: Reveals a white count of 3,000, hemoglobin of 9. Chemistries are noted. Urinalysis is reviewed and CMV is negative. Microbiology reveals the blood cultures are negative. Urine cultures are negative. Stool for C. diff antigen and toxin is negative. The patient is on Diflucan IV, meropenem, prednisone. ASSESSMENT AND PLAN: This is a 32-year-old female with severe sepsis with febrile neutropenia, previous admission also had febrile neutropenia, concern for leukemia or lymphoma, borderline hepatosplenomegaly with thyroid storm and Graves' disease, on Tapazole, day #8 of meropenem and Diflucan. Biopsies; open biopsy of the lymph node, we will check on the pathology report. The patient's white count is 3,000 with absolute granulocyte count now on 400. We will follow with you. Jerry Mensah MD
--- NOTE | 2017-11-27 23:08 | PN ---
DATE: 11/27/2017 SUBJECTIVE: She is comfortable in bed. No fever for the past 3 days. No fever since starting IV steroid. She was converted to oral prednisone 30 mg p.o. daily. Steroids were started for possibility of thyroid storm/autoimmune phenomenon. She markedly improved upon starting the IV steroids. Thyromegaly resolved within past few days. Clinically the blood counts have improved also after IV steroids. Currently, ANC is 400. Hemoglobin also improved to 9.5 gm/dL. REVIEW OF SYSTEMS: Still complaining of throat pain, difficulty in swallowing, but has markedly improved; fever decreased. Rest of 12-point review of systems reviewed, negative. MEDICATIONS: Tylenol 650 every 6 hours p.r.n., Magic Mouthwash, Diflucan daily, meropenem, prednisone 30 mg daily, propranolol 80 mg daily, oxycodone p.r.n., Zofran p.r.n., Tapazole increased to 10 mg p.o. t.i.d. PHYSICAL EXAMINATION: GENERAL: Comfortable in bed, in no acute distress. VITAL SIGNS: Temperature 98.9, heart rate is 80 per minute, blood pressure 104/53, respiratory rate 18 per minute, oxygen saturation 100% room air. HEENT: Thyromegaly resolved markedly. Single matted lymph node on right submandibular area also resolved. CHEST: Air entry present and equal bilaterally. No added sounds. CARDIOVASCULAR: S1 and S2 normal. No murmur. No gallop. ABDOMEN: Soft, nontender. No hepatosplenomegaly. EXTREMITIES: No edema. CENTRAL NERVOUS SYSTEM: Alert and oriented x3. No focal sensory or motor deficit. LABORATORY DATA: White count 3000, hemoglobin 9.5, hematocrit 29, platelet 267. Sodium 140, potassium 4.9, creatinine 0.5. ASSESSMENT AND PLAN: 1. Pancytopenia. Likely related to Tapazole. Bone marrow aspiration biopsy did not show any leukemia or lymphoma. She was started back on lower doses of Tapazole 10 mg t.i.d. She responded very well to IV steroid, blood count has improved. 2. Thyroid storm. We will continue p.o. steroid, 30 mg prednisone. Tapazole increased to [address] Cooper. 3. Hepatosplenomegaly. Cervical lymphadenopathy. Once clinically stable, we will consider lymph node biopsy which can be done as an outpatient. 4. Pancytopenia, recovering; discontinue neutropenic precautions. 5. Infectious Disease. She is currently on meropenem, no source of infection identified, all fever workup is negative. Dr. Mensah is following. Brielle Hernandez MD
[2017-11-28 02:39] VITALS: O2SAT 99
[2017-11-28] MEDS: Meropenem IV 1 gm in NS 50 ML IVPB SCH ×2 (05:32→14:32)
--- NOTE | 2017-11-28 07:01 | CP.PCM.PN ---
Subjective - Date & Time of Evaluation Date of Evaluation: 11/28/17 Time of Evaluation: 06:35 - Subjective Subjective: CARDIOLOGy Seen and examined by me and Dr. Tillman Reason for consult and follow up: Sinus tachycardia, hyperthyroidism, grave's disease, pulmonary hypertension, neutropenic sepsis Subjective: doing okay, feels better, denies palpitation or shortness of breath , denies fever Objective - Vital Signs/Intake and Output Vital Signs (last 24 hours): Temp Pulse Resp BP Pulse Ox 98.4 F 75 18 114/61 99 11/28/17 05:49 11/28/17 05:49 11/28/17 05:49 11/28/17 05:49 11/28/17 05:49 Intake and Output: 11/27/17 11/28/17 18:59 06:59 Intake Total 600 Balance 600 - Medications Medications: Current Medications Acetaminophen (Tylenol 325mg Tab) 650 mg PO Q6H PRN PRN Reason: Fever >100.4 F Last Admin: 11/25/17 21:11 Dose: 650 mg Al Hydrox/Mg Hydrox/Simethicone 30 ml/Diphenhydramine HCl 75 mg/Lidocaine 30 ml 0 ml PO Q2H PRN PRN Reason: Mouth/Throat Pain Last Admin: 11/26/17 22:52 Dose: 15 ml Diphenhydramine HCl (Benadryl) 25 mg PO BID PRN PRN Reason: Itching / Pruritus Last Admin: 11/28/17 00:29 Dose: 25 mg Meropenem (Merrem Iv 1 Gm Premix) 50 mls @ 100 mls/hr IVPB Q8 [facility] PRN Reason: Protocol Last Admin: 11/28/17 05:32 Dose: 100 mls/hr Methimazole (Tapazole) 10 mg PO TID [facility] Last Admin: 11/27/17 18:28 Dose: 10 mg Multi-Ingredient Cream (Hydrocerin Cream) 1 ea TOP DAILY [facility] Last Admin: 11/27/17 10:04 Dose: 1 applic Nystatin (Nystatin Oral Susp) 5 ml PO QID [facility] Last Admin: 11/27/17 21:57 Dose: 5 ml Ondansetron HCl (Zofran Inj) 4 mg IVP TID PRN PRN Reason: Nausea/Vomiting Oxycodone/Acetaminophen (Percocet 10/325 Mg Tab) 1 tab PO Q4H PRN PRN Reason: Pain, moderate (4-7) Last Admin: 11/27/17 21:57 Dose: 1 tab Prednisone (Prednisone Tab) 30 mg PO DAILY [facility] Last Admin: 11/27/17 10:02 Dose: 30 mg Propranolol HCl (Inderal La) 80 mg PO DAILY [facility] Last Admin: 11/27/17 10:24 Dose: 80 mg - Labs Labs: 11/26/17 06:50 11/27/17 06:20 PT 17.9 SECONDS (9.4-12.5) H 11/23/17 04:35 INR 1.56 (0.93-1.08) H 11/23/17 04:35 APTT 30.6 Seconds (25.1-36.5) 11/23/17 04:35 - Constitutional Appears: No Acute Distress - Head Exam Head Exam: NORMAL INSPECTION - Eye Exam Eye Exam: Normal appearance Pupil Exam: NORMAL ACCOMODATION - ENT Exam ENT Exam: Mucous Membranes Moist, Normal Exam - Respiratory Exam Respiratory Exam: Clear to Ausculation Bilateral, NORMAL BREATHING PATTERN - Cardiovascular Exam Cardiovascular Exam: REGULAR RHYTHM, +S1, +S2 - GI/Abdominal Exam GI & Abdominal Exam: Soft, Normal Bowel Sounds - Extremities Exam Extremities Exam: Full ROM, Normal Capillary Refill - Neurological Exam Neurological Exam: Alert, Awake, Oriented x3 - Psychiatric Exam Psychiatric exam: Normal Affect, Normal Mood - Skin Skin Exam: Dry, Intact, Normal Color, Warm Assessment and Plan - Assessment and Plan (Free Text) Assessment: IMPRESSION: Acute pancytopenia, neutropenia, thrombocytopenia, anemia, fever, sepsis, enlarged thyroid, sinus tachycardia, pulmonary hypertension. Plan: Heart rate well controlled Continue Propanolol 80 mg daily Continue Tapazole Cardiac status stable, will consider cardiac CT as an out patient procedure to evaluate pulmonary hypertension May discontinue telemetry if heart rate stable Will follow up Plan and treatment discussed with Dr. Tillman
[2017-11-28] MEDS: Nystatin 100,000 Units/ml Oral Susp 5 ml UD PO SCH ×2 (09:24→14:32)
[2017-11-28] MEDS: Hydrocerin(120 gm) TOP SCH (10:05)
[2017-11-28] MEDS: Propranolol 80 mg ER Cap PO SCH (10:06)
[2017-11-28 12:32] VITALS: BP 108/60; PULSE 97; RESP 19; TEMP 98.5
[2017-11-28] MEDS: Oxycodone/Acetaminophen 10/325 mg Tab PO PRN (12:42)
--- NOTE | 2017-11-29 00:18 | PN ---
DATE: ENDOCRINOLOGY FOLLOWUP NOTE: LOCATION: In room 270. SUBJECTIVE: This is a 32-year-old female with marked neutropenia and febrile episodes currently undergoing hematologic workup with IV steroid management as given. She also has concomitant marked hyperthyroidism both historically, clinically, and biochemically, and is tolerating the modified dosing of her Tapazole therapy as given. Her latest T4 is still over 24.9 with a TSH of less than 0.02 and then a free T4 of 4.02. ASSESSMENT AND PLAN: So at this time, we will continue the same Tapazole given as 10 mg p.o. t.i.d. after meals as ordered. We will also continue the IV steroids which is improving her white count dramatically as noted. she may have to eventually go for more definitive management of her moderately enlarged multinodular goiter as noted. At this time, she also understands that only a thyroid resection with near total thyroidectomy will be the most definitive management for stabilization of her thyroid condition. However, at this point, because of the markedly elevated thyroid function studies, she could not yet be cleared for thyroid resection because of the thyroid storm and sinus tachycardia or any cardiac tachyarrhythmias thereof. We will follow. Valentine Cooper MD
--- NOTE | 2017-11-29 00:41 | DS ---
DISCHARGE DIAGNOSES: 1. Pancytopenia. 2. Thyroid storm. 3. Lymphadenopathy in the neck. 4. Hepatosplenomegaly. HOSPITAL COURSE: Patient was admitted with high fever up to [address] Centigrade. Lymphadenopathy in the neck, dysphagia, hepatosplenomegaly. Thyroid function tests were indicative of thyroid storm. She had history of thyroid storm before and was on Tapazole. She was severely neutropenic with AMC of 0 and white count of 0. Consultation with Endocrine, ID, and Cardiology, Dr. Tillman, Dr. Cooper and Dr. Mensah were requested during hospitalization. She defervesced with IV steroid and thyromegaly markedly resolved with 4 days of IV steroid. She is being discharged in stable condition. PHYSICAL EXAMINATION: GENERAL: Comfortable in bed, in no acute distress. VITAL SIGNS: Temperature 98.7, heart rate 80 per minute, blood pressure 120/70, respiratory rate 18 per minute. HEENT: Pallor positive. NECK: Lymph adenopathy markedly resolved. CHEST: Air entry present and equal bilaterally. No added sound. CARDIOVASCULAR: S1 and S2 normal. No murmur, no gallop. ABDOMEN: Soft, nontender. No hepatosplenomegaly. EXTREMITIES: No edema. CENTRAL NERVOUS SYSTEM: Alert, oriented x 3. No focal sensory or motor deficit. CONDITION ON DISCHARGE: Stable. DISCHARGE MEDICATIONS: Inderal 80 mg daily, prednisone 30 mg daily, Tapazole 10 mg p.o. t.i.d., Percocet 10 mg p.r.n. for throat pain. FOLLOWUP: Followup with Dr. Oseguera, Endocrine; Dr. Tillman, Cardiology; Dr. Hernandez, Hematology; , PCP; Dr. James, ENT. All prescriptions were given to the patient. Time spent in preparing discharge and coordinating care, 50 minutes. Brielle Hernandez MD
--- NOTE | 2017-11-29 03:35 | PN ---
DATE: 11/28/2017 SUBJECTIVE: The patient was seen in bed, in no acute distress. The patient was seen earlier this morning in room 270, bed 1. She is doing much better overall. PHYSICAL EXAMINATION VITAL SIGNS: Temperature of 98, blood pressure is 105/70, respiratory rate of 16. HEENT: Examination of HEENT is unremarkable. NECK: Supple. LUNGS: Have decreased breath sounds. HEART: Normal S1 and S2. ABDOMEN: Soft. LABORATORY DATA: Reviewed. ASSESSMENT AND PLAN: This is a 32-year-old female with severe sepsis; febrile neutropenia - on previous admission had febrile neutropenia, concerned about leukemia and lymphoma, borderline hepatosplenomegaly, thyroid storm, Graves' disease, on Tapazole. Complete meropenem therapy and on Diflucan. The patient had a lymph node biopsy and we will check on the pathology report. Jerry Mensah MD
== END 2017-11-28 17:45 | disposition home or self-care (01) | DRG 584 ==
LOC: ED 13:35 → ERH 16:12 → 5RNO 21:00 → 3RSO 11-20 00:01 → 2RSO 11-27 16:20
PROVIDERS: ADMIT Internal Medicine Medical Oncology; ATTEND Internal Medicine Medical Oncology
DX: A41.9 Sepsis, unspecified organism (principal); E05.01 Thyrotoxicosis with diffuse goiter with thyrotoxic crisis or storm; D61.818 Other pancytopenia; E87.70 Fluid overload, unspecified; D70.3 Neutropenia due to infection; D72.820 Lymphocytosis (symptomatic); E04.2 Nontoxic multinodular goiter; E06.9 Thyroiditis, unspecified; R65.20 Severe sepsis without septic shock; I10 Essential (primary) hypertension; I27.20 Pulmonary hypertension, unspecified; K12.30 Oral mucositis (ulcerative), unspecified; R13.10 Dysphagia, unspecified; R50.81 Fever presenting with conditions classified elsewhere; Z87.891 Personal history of nicotine dependence; R16.2 Hepatomegaly with splenomegaly, not elsewhere classified; J02.9 Acute pharyngitis, unspecified; R59.0 Localized enlarged lymph nodes; R63.4 Abnormal weight loss

== ENCOUNTER 2018-01-17 08:20 | Day surgery (SDC) | payer MEDICAID ==
[2018-01-08 09:15] VITALS: BMI 22.1
--- NOTE | 2018-01-17 01:54 | HP ---
REASON FOR ADMISSION: Left heart and right heart cath, possible angioplasty. BRIEF CLINICAL HISTORY: A [id number] with past medical history significant for Graves disease on methimazole, recently admitted to [facility] with a temperature of 102. Blood culture was negative, pancytopenic. Echo shows severe pulmonary hypertension. Patient was tachycardiac. Patient needs to be treated with beta-saud. All cultures were negative. Later on patient was discharged and admitted to rule out ASD and was being done to rule out ASD, for left and right heart cath as well as a pulse oxymetry. Patient denies any chest pain, but complains of shortness of breath and dyspnea on exertion. PAST MEDICAL HISTORY: Significant for pulmonary hypertension, pancytopenia, hyperthyroidism, tachycardia. SOCIAL HISTORY: . Denies any history of alcohol abuse. CURRENT MEDICATION: Patient is taking prednisone 10 mg daily, methimazole 10 mg daily, ranitidine 300 mg daily, propranolol 80 mg daily. PREVIOUS CARDIAC WORKUP FOLLOWS: Patient had echocardiography on 11/20/2017 that revealed normal sized LV, normal LV wall thickness, ejection fraction of 55% to 60%. Flattening of septum consistent with right ventricular pressure volume overload, right ventricle severely dilated, systolic function of RV is moderately reduced. Right atrium is severely dilated. Intraatrial septum goes towards the left atrium consistent with elevated right atrial pressure. Trace mitral regurgitation. Severe tricuspid regurgitation. RV systolic pressure of 74 consistent with [id number] pulmonary hypertension. REVIEW OF SYSTEMS: As per HPI. PHYSICAL EXAMINATION: As follows. VITAL SIGNS: Height of the patient is 5 feet 4 inches, weight of the patient 129 pounds, body mass index 22.1 kg/m2. Heart rate 100, blood pressure 120/70. HEENT: PERRLA. Extraocular muscles intact. NECK: Supple. No carotid bruits or thyromegaly. CHEST: Clear to auscultation. HEART: S1 and S2, regular. ABDOMEN: Soft. EXTREMITIES: Clubbing and cyanosis, negative. LABORATORY DATA: Blood workup pending. IMPRESSION: Pulmonary hypertension; rule out atrial septal defect; history of dilated right atrium, right ventricle, and [id number] pulmonary hypertension; hyperthyroidism; Graves disease; pancytopenia. RECOMMENDATION: Left and right heart cath as well as pulse oximetry to see the atrial septal defect or ventricular septal defect. Further recommendation after the cardiac catheterization. We will follow with you. Thank you Dr. Hernandez/ for providing us the opportunity in taking care of patient, Ms. Ryder. Ilya Tillman MD
[2018-01-17 09:02] LABS: GRAN # 0.65 (1.4-6.5); GRAN % 20.8 % (50.0-68.0); HEMOGLOBIN 11.5 g/dL (12.0-16.0); LYMPH # 2.2 (1.2-3.4); LYMPH % 70.9 % (22.0-35.0); MEAN CELL VOLUME 88.1 fl (80.0-105.0); MEAN PLATELET VOLUME 8.9 fl (7.0-11.0); MONO # 0.2 (0.1-0.6); MONO % 7.3 % (1.0-6.0); PLATELET COUNT 166 10^3/uL (120.0-450.0); RBC 3.96 10^6/uL (3.5-6.1); WHITE BLOOD COUNT 3.1 10^3/ul (4.5-11.0)
[2018-01-17 09:14] LABS: BLOOD UREA NITROGEN 8 mg/dL (7-21); CALCIUM 8.9 mg/dL (8.4-10.5); GFR AFRICAN-AMERICAN > 60; GFR NON-AFRICAN AMERICAN > 60; HDL CHOLESTEROL 45 mg/dL (29-60)
[2018-01-17 09:24] LABS: LDL CHOLESTEROL 101 mg/dL (0-129)
[2018-01-17 09:26] LABS: INR 1.05 (0.93-1.08); PARTIAL THROMBOPLASTIN TIME 30.4 Seconds (25.1-36.5); PROTHROMBIN TIME 12.1 SECONDS (9.4-12.5)
[2018-01-17 09:41] LABS: LYMPHOCYTE 77 % (22.0-35.0); MONOCYTE 5 % (1.0-6.0); NEUTROPHIL 18 % (50.0-70.0); PLATELET ESTIMATE NORMAL (NORMAL)
--- NOTE | 2018-01-17 13:08 | CARD ---
APPROVED REPORT EKG Measurement Heart [id number] MS [id number] <Conclusion> Normal sinus rhythm Normal ECG The rate is slower c/w ECG 10/30/17
[2018-01-17] MEDS ORDERED: Lidocaine 2% Inj (20ml) ONE (13:16)
[2018-01-17] MEDS ORDERED: Iodixanol 320 MG/ML 100 ML BOTTLE IV ONE (13:17)
[2018-01-17] MEDS ORDERED: Iodixanol 320 MG/ML 200 ML BOTTLE IV ONE (13:17)
[2018-01-17] MEDS ORDERED: Midazolam 2 MG/2 ML VIAL ONE ×2 (13:17→14:06)
[2018-01-17 14:50] LABS: ARTERIAL BLOOD GAS HCO3 26.4 mmol/L (21-28); ARTERIAL BLOOD GAS O2 CAPACITY 13.5 mL/dl (16-24); ARTERIAL BLOOD GAS O2 CONTENT 12.1 ML/dl (15-23); ARTERIAL BLOOD GAS O2 SAT 89.5 % (95-98); ARTERIAL BLOOD GAS PCO2 50 mm/Hg (35-45); ARTERIAL BLOOD GAS PH 7.33 (7.35-7.45); ARTERIAL BLOOD GAS TCO2 27.9 mmol.L (22-28)
[2018-01-17 14:54] LABS: ARTERIAL BLOOD GAS HCO3 26.2 mmol/L (21-28); ARTERIAL BLOOD GAS O2 CAPACITY 13.5 mL/dl (16-24); ARTERIAL BLOOD GAS O2 SAT 88.9 % (95-98); ARTERIAL BLOOD GAS PCO2 52 mm/Hg (35-45); ARTERIAL BLOOD GAS PH 7.31 (7.35-7.45); ARTERIAL BLOOD GAS TCO2 27.8 mmol.L (22-28)
[2018-01-17 14:58] LABS: ARTERIAL BLOOD GAS HCO3 21.1 mmol/L (21-28); ARTERIAL BLOOD GAS HEMOGLOBIN 10.2 g/dL (11.7-17.4); ARTERIAL BLOOD GAS O2 CAPACITY 14.1 mL/dl (16-24); ARTERIAL BLOOD GAS O2 SAT 99.2 % (95-98); ARTERIAL BLOOD GAS PCO2 40 mm/Hg (35-45); ARTERIAL BLOOD GAS PH 7.33 (7.35-7.45); ARTERIAL BLOOD GAS TCO2 22.3 mmol.L (22-28)
[2018-01-17] MEDS ORDERED: Sodium Chloride 0.9% 1,000 ML IV SCH (15:00)
[2018-01-17 15:02] LABS: ARTERIAL BLOOD GAS HCO3 26.7 mmol/L (21-28); ARTERIAL BLOOD GAS HEMOGLOBIN 10.9 g/dL (11.7-17.4); ARTERIAL BLOOD GAS O2 CAPACITY 14.7 mL/dl (16-24); ARTERIAL BLOOD GAS O2 CONTENT 12.7 ML/dl (15-23); ARTERIAL BLOOD GAS O2 SAT 86.3 % (95-98); ARTERIAL BLOOD GAS PCO2 53 mm/Hg (35-45); ARTERIAL BLOOD GAS PH 7.31 (7.35-7.45); ARTERIAL BLOOD GAS TCO2 28.3 mmol.L (22-28)
[2018-01-17 15:05] LABS: ARTERIAL BLOOD GAS HCO3 25.5 mmol/L (21-28); ARTERIAL BLOOD GAS HEMOGLOBIN 10.7 g/dL (11.7-17.4); ARTERIAL BLOOD GAS O2 CAPACITY 14.5 mL/dl (16-24); ARTERIAL BLOOD GAS O2 CONTENT 12.7 ML/dl (15-23); ARTERIAL BLOOD GAS O2 SAT 87.3 % (95-98); ARTERIAL BLOOD GAS PCO2 53 mm/Hg (35-45); ARTERIAL BLOOD GAS PH 7.29 (7.35-7.45); ARTERIAL BLOOD GAS TCO2 27.1 mmol.L (22-28)
[2018-01-17 15:12] VITALS: TEMP 98
--- NOTE | 2018-01-17 15:31 | CARD ---
APPROVED REPORT Procedure(s) performed: Complete Heart Catheterization and Pulse oximetry in RA,RV, PA, and pCW HISTORY The patient is a 32 year-old female with a history of : tobacco history() : The patient is a current smoker , Hx of Graves's diz, recently admitted at [facility] with Tachycardia, !02 temp, SOB,and Chest pain.Echo showed severe pulmonary HTN RVSP-74 and enlarged RA/RV admitted for LHC/RHC to R/o ASD/ VSD. INDICATION The indication(s) include : palpitations, chest pain, dyspnea, Severe Enlarged RA/RV and RVSP-74 mmof Hg. by Echo. CASE TECHNIQUE The patient was brought electively to the Cardiac Catheterization Laboratory in a fasting state and was prepped and draped in a sterile manner. The right femoral groin was infiltrated with 2% Lidocaine subcutaneous anesthesia. A 6 Fr x 11 cm Ara sheath was inserted into the right femoral artery without difficulty. Coronary angiography was performed using coronary diagnostic catheters. The left coronary system was accessed and visualized with a Diagnostic , 5F JL 4 CATH DXT 100 CM catheter. The right coronary system was accessed and visualized with a Diagnostic ,5 Fr JR 4 catheter. The left ventricle was accessed and visualized with a 5F PIGTAIL 145 CATH DXT 110 CM catheter. Left ventricular/Aortic Valve gradient assessed on pullback. Left ventriculogram was performed in PLASENCIA projection. A Right Heart Catheterization was performed with a 7 Fr. Sheldahl-Lala catheter and pressure were recorded. A 7 sheath was inserted into the right femoral vein without difficulty. Coronary angiography was performed using coronary diagnostic catheters. Cardiac outputs were obtained by the Thermal Dilution method. Pre-demployment femoral angiogram was performed . Closure device was deployed with a 6 Fr Angio-Seal without any complications. Hemostasis was obtained with manual pressure following sheath removal without any complications. The patient tolerated the procedure well and there were no complications associated with the procedure. Vessel Analysis The patient's coronary anatomy is right dominant. The left main coronary artery is a large size vessel without stenosis. The left main trifurcates to the left anterior descending, circumflex, and ramus. The left anterior descending artery is a medium size vessel with intimal irregularities. The first diagonal branch is a small size vessel with intimal irregularities and without significant stenosis. The circumflex artery is a medium size vessel without significant stenosis. The first obtuse marginal branch is a small size vessel with intimal irregularities. The ramus intermedius artery is a medium size vessel with intimal irregularities. The right coronary artery is a large size vessel free of disease. The right posterior descending artery is a medium size vessel without stenosis. The right posterolateral branch is a medium size vessel with stenosis. Left Ventricle The left ventricle is Borderline enlarged in size with normal contractility. There was no cardiomyopathy. The left ventricular ejection fraction is estimated to be 55%. The left ventricular end diastolic pressure is 12 mmHg. There was no gradient across the aortic valve upon pullback. Right Heart Cath Findings The Right Atrial Pressure is 6-7 mmHg. The Right Ventricular Pressure is 25/6 mmHg. The Pulmonary Artery Pressure is 22/12 mmHg. with a mean of12 The Pulmonary Catheter Wedge Pressure is 7-8 mmHg. PVR 1.1 Wood units. The cardiac output and index were assessed using thermo dilution. The Cardiac Output is 5.83 L/min. The Cardiac index is 3.59 L/min/m2. Pulse Oximetry >> O2 sat: RA-49, RV-49, PA-49, ( Right PA), Left PA-49,PCW-132 (probably Error but no step up of O2 noted) Conclusion Normal coronaries, Preserved Lv Fx. RHC;RA-6-7, RV-25/6, PA-22/12 with a mean 15, PCW-7-8, Co-5.83, CI-3.4, PVR-1.2 doss unit, Oximetry, sample from RA, RV, PA did not show step up ( Essentially Normal RHC) Recommendations Repeat Echo in three months, Preferably [facility]TER[facility]. Cc; Patricia Angulo/ Bryon Burkett
[2018-01-17 17:41] VITALS: RESP 18
[2018-01-17 17:42] VITALS: BP 113/54; PULSE 67; O2SAT 97
== END 2018-01-17 13:10 | disposition home or self-care (01) ==
LOC: CATH 08:20
PROVIDERS: ATTEND Internal Medicine Cardiovascular Disease
DX: I27.20 Pulmonary hypertension, unspecified (principal); F17.200 Nicotine dependence, unspecified, uncomplicated; D61.818 Other pancytopenia; E05.90 Thyrotoxicosis, unspecified without thyrotoxic crisis or storm; R00.0 Tachycardia, unspecified; I08.1 Rheumatic disorders of both mitral and tricuspid valves
CPT/HCPCS: 36415; 80048; 80061; 82803; 84703; 85025; 85610; 85730; 86850; 86900; 93005; 93460; 99152; C1760 ×2; C1769 ×2; C1887; C1894; C2629; J1644; J2250; J3010; J7030; J7040; Q9966; Q9967